=== PATIENT | male | born 1950 | race Caucasian/White ===

== ENCOUNTER 2020-11-09 15:30 | Emergency (ER) | payer OTHER ==
[~2020-11-09] VITALS: Ht 182.9 cm; Wt 70.3 kg
== END 2020-11-09 18:10 | disposition home or self-care (01) ==
LOC: ER 15:30
DX: S39.012A Strain of muscle, fascia and tendon of lower back, initial encounter (principal); F17.200 Nicotine dependence, unspecified, uncomplicated; V53.6XXA Passenger in pick-up truck or van injured in collision with car, pick-up truck or van in traffic accident, initial encounter; Y92.410 Unspecified street and highway as the place of occurrence of the external cause
CPT/HCPCS: 72100; 96372; 99283-25; J1885

== ENCOUNTER 2021-04-26 11:15 | Inpatient (IN) | payer OTHER, MEDICARE ==
[~2021-04-26] VITALS: Ht 182.9 cm; Wt 59.2 kg
[2021-04-26] MEDS ORDERED: MULVITA PO (12:48)
[2021-04-26] MEDS ORDERED: FERSU300 PO (12:48)
[2021-04-26] MEDS ORDERED: Aspir 8181 MG PO (12:48)
[2021-04-26 13:30] LABS: BASOPHILS ABSOLUTE AUTO 0.03 K/mm3 (0.00-0.23); BASOPHILS PERCENT AUTO 0 % (0-2); EOSINOPHILS ABSOLUTE AUTO 0.29 K/mm3 (0.00-0.68); EOSINOPHILS PERCENT AUTO 2 % (0-6); Hematocrit 35.6 % (37.0-53.0); Hemoglobin 11.7 g/dL (13.5-17.5); IMMATURE GRAN ABSOLUTE AUTO 0.05 K/mm3 (0.00-0.10); IMMATURE GRAN PERCENT AUTO 0 % (0-1); LYMPHOCYTES ABSOLUTE AUTO 1.07 K/mm3 (0.84-5.20); LYMPHOCYTES PERCENT AUTO 8 % (21-46); MONOCYTES ABSOLUTE AUTO 1.29 K/mm3 (0.16-1.47); MONOCYTES PERCENT AUTO 9 % (4-13); Mean Corpuscular HGB 31.1 pg (26.0-34.0); Mean Corpuscular HGB Conc 32.9 g/dL (31.5-36.5); Mean Corpuscular Volume 95 fL (80-100); NEUTROPHILS ABSOLUTE AUTO 11.01 K/mm3 (1.96-9.15); NEUTROPHILS PERCENT AUTO 80 % (41-73); Platelet Count 340 K/mm3 (150-400); RDW Coefficient Variation 13.2 % (11.7-14.2); RDW Standard Deviation 46.5 fL (35.1-46.3); Red Blood Cell Count 3.76 M/mm3 (4.30-5.90); White Blood Cell Count 13.74 K/mm3 (4.00-11.30)
[2021-04-26 13:31] LABS: Bun/Creatinine Ratio 30.9 (12.0-20.0); Calcium, Blood 8.6 mg/dL (8.5-10.1); Creatinine, Blood 2.59 mg/dL (0.60-1.20); Potassium, Blood 4.8 mmol/L (3.5-5.5)
[2021-04-26 16:18] LABS: CPK Creatine Kinase 82 U/L (39-308)
[2021-04-26 17:03] LABS: International Normalized Ratio 0.9; Prothrombin Time Results 9.8 Sec (9.7-11.5)
--- NOTE | 2021-04-26 19:35 | NUR ---
ADMIT NOTE RECEIVED REPORT FROM SHANNON BOWLING IN ED. PT TO ROOM AT APPROX 1725; SBA TO BED. PT AND SPOUSE ORIENTED TO ROOM AND CALL LIGHT. EDUCATED ON FALL RISK AND BED ALARM. PT REPORTS THAT HE DRINKS 12 TALL CANS OF BEER AND A SMALL PINT OF WHISKEY EVERY DAY; METH USE 2-3 DAYS AGO, DAILY MARIJUANNA USE AND CIGAR AND CHEWING TOBACCO USE. LAST DRINK 04/26/2021 AT APPROX 0900. PT A&Ox3; JENA; FORGETFUL. PT FIDGETING, STATES HE HAS RESTLESS LEG SYNDROME. PT REPORTS BACK IN BEING BEATEN AND HAVING BRAIN BLEED AND BUR HOLES INTO SCALP TO RELEIVE PRESSURE; LEFT MESSAGE FOR PROVIDER TO NOTIFIED PRIOR TO STARTING HEPARIN GTT. PT DENIES CHEST PAIN, SOB, NAUSEA AND DIZZINESS AT THIS TIME. PT REPORT LLE HAS BEEN PAINFUL FOR THE LAST COUPLE OF DAYS AND HAS BEEN TAKING ADDITIONAL MEDICATIONS AT HOME BUT WAS UNSURE NAME. PULSES FOR BLE FOUND VIA DOPPLER AND MARKED. SIGNIFICANT TENSION NOTED BETWEEN PATIENT AND SPOUSE, NOTED A DEGREE OF ESCALATION WHICH INTERFERED WITH ADMISSION PROCESS; SPOUSE EDUCATED ON VISITING HOURS AND RESTRCIONS. CIWA 4. ELEVATED BP NOTE; OTHER VSS. NO OTHER ACUTE CHANGES NOTED. REPORT GIVEN TO ONCOMING RN.
[2021-04-26 23:10] LABS: Source, Urine Clean Catch
[2021-04-26 23:13] LABS: Bilirubin, Urine Neg (Neg); Blood, Urine Neg (Neg); Glucose Qualitative, Urine Neg (Neg); Ketones, Urine Neg (Neg); Leukocyte Esterase, Urine Neg (Neg); Nitrite, Urine Neg (Neg); Protein, Urine Neg (Neg); Urobilinogen, Urine NORM (Normal); pH, Urine 6.5 (5.0-8.0)
[2021-04-26 23:14] LABS: Appearance, Urine Clear (Clear); Color, Urine Pale Yellow (P-Yellow)
--- NOTE | 2021-04-27 01:40 | NUR ---
ST ELEVATION THIS RN NOTICED ST ELEVATION ON TELE MONITOR WHICH WAS NOT REPORTED AT CHANGE OF SHIFT THE PT HAD JUST ARRIVED ON THE UNIT AT SHIFT CHANGE. THIS RN REPORTED THIS TO CHARGE BU[facility]Y [place] SO SHE [facility]ICH [facility]OWED SLIGHT ST ELEVATION OF 2018. CHARGE NURSE NOT CONCERNED AND PT DENIED ANY CP OR ANY OTHER S/S SO NO CALL TO PROVIDER WAS PLACED.
[2021-04-27 04:17] LABS: BASOPHILS ABSOLUTE AUTO 0.04 K/mm3 (0.00-0.23); BASOPHILS PERCENT AUTO 0 % (0-2); EOSINOPHILS ABSOLUTE AUTO 0.35 K/mm3 (0.00-0.68); EOSINOPHILS PERCENT AUTO 3 % (0-6); Hematocrit 36.4 % (37.0-53.0); Hemoglobin 12.2 g/dL (13.5-17.5); IMMATURE GRAN ABSOLUTE AUTO 0.04 K/mm3 (0.00-0.10); IMMATURE GRAN PERCENT AUTO 0 % (0-1); LYMPHOCYTES ABSOLUTE AUTO 1.21 K/mm3 (0.84-5.20); LYMPHOCYTES PERCENT AUTO 11 % (21-46); MONOCYTES ABSOLUTE AUTO 1.01 K/mm3 (0.16-1.47); MONOCYTES PERCENT AUTO 9 % (4-13); Mean Corpuscular HGB 30.7 pg (26.0-34.0); Mean Corpuscular HGB Conc 33.5 g/dL (31.5-36.5); Mean Corpuscular Volume 92 fL (80-100); Mean Platelet Volume 10.1 fL (9.1-12.4); NEUTROPHILS ABSOLUTE AUTO 8.48 K/mm3 (1.96-9.15); NEUTROPHILS PERCENT AUTO 76 % (41-73); Platelet Count 334 K/mm3 (150-400); RDW Standard Deviation 43.9 fL (35.1-46.3); Red Blood Cell Count 3.98 M/mm3 (4.30-5.90); White Blood Cell Count 11.13 K/mm3 (4.00-11.30)
[2021-04-27 04:41] LABS: Alanine Aminotransfer (ALT/SGP 18 U/L (12-78); Albumin/Globulin Ratio 0.8 (0.8-1.8); Alk Phos 101 U/L (50-136); Anion Gap 5 mmol/L (6-16); Aspartate Aminotrans (AST/SGOT 14 U/L (12-37); Bilirubin, Total 0.3 mg/dL (0.1-1.0); Blood Urea Nitrogen 49 mg/dL (8-24); Bun/Creatinine Ratio 46.2 (12.0-20.0); CO2, Blood 24 mmol/L (21-32); Calcium, Blood 8.6 mg/dL (8.5-10.1); Chloride, Blood 109 mmol/L (98-108); Creatinine, Blood 1.06 mg/dL (0.60-1.20); Globulin, Blood 3.9 g/dL (2.2-4.0); Glomerular Filtration Rate >60 (60-); Glucose, Blood 87 mg/dL (70-99); Potassium, Blood 4.8 mmol/L (3.5-5.5); Sodium, Blood 138 mmol/L (136-145); Total Protein, Blood 6.9 g/dL (6.4-8.2)
--- NOTE | 2021-04-27 06:41 | NUR ---
TENTER FRAME BACK TENDER SUMMARY PT IS AXO X4. PT BEGAN SHIFT W CIWA OF 7 DUE TO SEVERE ANXIETY AND MILD TREMOR. 50MG LIBRIUM GIVEN AND CIWA'S HAVE REMAINED 1-4 THE REST OF SHIFT. PT HAS PRODUCED OVER 2L OF CLEAR YELLOW URINE THIS SHIFT. PT HAS DENIED ANY CP OR PRESSURE THIS SHIFT. PT HAS MAINAINED O2 SATS >92% ON RM AIR. HEPARIN GTT RUNNING ALL SHIFT UNINTERUPTED. WILL REPORT TO ONCOMING RN.
--- NOTE | 2021-04-27 20:08 | NUR ---
JUSTIN SHIFT SUMMARY THIS AM PT A&Ox4; FORGETFUL AT TIMES, T/O SHIFT PT ORIENTED HAS DECREASED AT APPROX 1600 TO SELF; AGGITATION INCREASED T/O SHIFT, ESCALATING THIS EVENING; CIWA THIS AM 2 INCREASING T/O SHIFT TO 17; MEDICATED WITH LIBRIUM AND ATIVAN T/O SHIFT. PT IMPULSING AND CONSTANTLY SETTING OFF BED ALARM, EDUCATED PT ON SEVERAL OCCASIONS, NOTIFIED DR KNUTSON, NEW ORDERS FOR HUMBERTO VEST; PT CONTINUING TO MAKE IT OUT OF BED, ABLE TO UNDO RESTRAINTS, NOTIFIED DR KNUTSON, NEW ORDERS FOR BILATER WRIST RESTRAINTS. NEW ORDERS FOR RISPERODOL. PT PULSES TO BLE FOUND WITH DOPPLER, NOTIFIED DR MANUEL OF PROVIDER CONSULT, NO PLANS FOR PROCEDURE TODAY, OK TO FEED PATIENT, NEW ORDERS FOR DIET ENTERED. PA AT BEDSIDE THIS AFTERNOON. PT UP WALKING UNIT THIS AM, APPROX 100FT, DENIES PAIN TO BLE. ELEVATED BP NOTED THIS AM, TREDNING DOWN DURING SHIFT. OTHER VSS. NO OTHER ACUTE CHANGES NOTED. REPORT GIVEN TO ONCOMING RN.
--- NOTE | 2021-04-27 20:10 | NUR ---
PT ARRIVES TO ICU 14 VIA BED FROM PCU 8, TRANSFER TO ICU DUE TO ETOH WITHDRAWAL. ON ARRIVAL PT APPEARS TO BE RESTING QUIETLY WITH HUMBERTO VEST RESTRAINT AND BILAT WRIST RESTRAINTS IN PLACE HOWEVER WITH SLIDE TRANSFER TO BED, PT BEGINS TO SIT UP, THROW LEGS OVER SIDE RAILS, PULL AGAINST WRIST RESTRAINTS AND ROLL SIDE TO SIDE IN BED KICKING FEET CONSTANTLY. ATIVAN 4 MG IV ADMINISTERED AND PHARMACY IS CALLED FOR PRECEDEX INFUSION. PT IS UNABLE TO STATE NAME AND BIRTHDATE HOWEVER DOES ANSWER TO SPOKEN NAME, HE IS ORIENTED TO SELF ONLY AT THIS TIME. SATS ARE HIGH 90S, SENTENCES ARE MUMBLED AND DIFFICULT TO UNDERSTAND, NO VISIBLE INCREASED WORK OF BREATHING IS NOTED WHEN PT IS AT REST, OCCASIONAL DRY COUGH IS NOTED, LUNGS CLEAR WITH DIM BASES BILAT. HRR, SINUS ON MONITOR, PRESSURES ARE DIFFICULT TO OBTAIN RELATED TO INCREASED MOVEMENT. BILAT RADIAL PULSES ARE FULL, UNABLE TO LOCATE PEDAL PULSES TO PALP WITH PT KICKING FEET, WILL ATTEMPT DOPPLER WHEN PT IS MORE CALM. ACTIVE BOWEL TONES ARE NOTED, ABD SOFT, NO GRIMACING WITH LIGHT PALPATION. HEPARIN GTT AT 19 UNITS/KG/HR, NS AT TKO
--- NOTE | 2021-04-27 20:17 | NUR ---
care assumption/transfer UPON SHIFT CHANGE PT HAD BECOME INCREASINGLY AGITATED THRSHINSHING IN BED. AT THIS TIME THE PT WAS COMPLETELT DISORIENTED AND MUMBLING INCOHERENTLY. CIWA AT THIS TIME WAS 20 SO ATIVAN WAS GIVEN WITH NO RELIEF OF SYMPTOMS. AT THIS TIME CHARGE NURSE NOTIFIED ICU CHARGE NURSE AND THE PROVIDER SO THE PT COULD BE TRANSFERED TO ICU FOR ADVANCED TREATMENT AND MONITORING. PT ESCORTED FROM PCU 8 TO ICU 14 WITH NO EVENTS. PT TRANSFERED AND CARE ASSUMED BY SHANNAN Cook, REPORT GIVEN AT BEDSIDE.
--- NOTE | 2021-04-28 03:00 | NUR ---
ST CHANGES PT APPEARS TO HAVE ST SEGMENT CHANGES FROM BASELINE UP TO 2 MM ELEVATION IN LEAD II ON WEB PRESS OPERATOR APPRENTICE, DISCUSSED WITH DR ROSE AND EKG ORDERED. EKG DONE PER ORDERS. WILL CONT TO MONITOR.
[2021-04-28 03:39] LABS: Hematocrit 36.3 % (37.0-53.0); Hemoglobin 12.3 g/dL (13.5-17.5); Mean Corpuscular HGB 31.1 pg (26.0-34.0); Mean Corpuscular HGB Conc 33.9 g/dL (31.5-36.5); Mean Corpuscular Volume 92 fL (80-100); Mean Platelet Volume 10.2 fL (9.1-12.4); Platelet Count 321 K/mm3 (150-400); RDW Coefficient Variation 13.1 % (11.7-14.2); RDW Standard Deviation 43.9 fL (35.1-46.3); Red Blood Cell Count 3.95 M/mm3 (4.30-5.90); White Blood Cell Count 7.48 K/mm3 (4.00-11.30)
[2021-04-28 04:05] LABS: Alanine Aminotransfer (ALT/SGP 16 U/L (12-78); Albumin, Blood 2.7 g/dL (3.4-5.0); Albumin/Globulin Ratio 0.7 (0.8-1.8); Alk Phos 85 U/L (50-136); Anion Gap 4 mmol/L (6-16); Aspartate Aminotrans (AST/SGOT 10 U/L (12-37); Bilirubin, Total 0.2 mg/dL (0.1-1.0); Blood Urea Nitrogen 28 mg/dL (8-24); Bun/Creatinine Ratio 42.7 (12.0-20.0); CHOL/HDL RATIO 3.2; CO2, Blood 26 mmol/L (21-32); Calcium, Blood 8.6 mg/dL (8.5-10.1); Chloride, Blood 110 mmol/L (98-108); Cholesterol 153 mg/dL (50-200); Creatinine, Blood 0.66 mg/dL (0.60-1.20); Globulin, Blood 3.9 g/dL (2.2-4.0); Glomerular Filtration Rate >60 (60-); Glucose, Blood 138 mg/dL (70-99); HDL Cholesterol 48 mg/dL (>39); LDL/HDL RATIO 1.7; Low Density Lipoprotein Chol 82 mg/dL (0-110); Potassium, Blood 4.7 mmol/L (3.5-5.5); Sodium, Blood 140 mmol/L (136-145); Total Protein, Blood 6.6 g/dL (6.4-8.2); Triglycerides 117 mg/dL (30-160); Very Low Density Lipoprot Chol 23 mg/dL (6-32)
--- NOTE | 2021-04-28 05:45 | NUR ---
PT INITIALLY WITH MARKED AGITATION/RESTLESSNESS, IN CONSTANT MOTION, KICKING FEET, ROLLING FROM SIDE TO SIDE, SITTING UP, AND PULLING AGAINST WRIST RESTRAINTS. ATIVAN 4 MG IV ADMINISTERED X 3 AFTER ARRIVAL TO ICU, PRECEDEX GTT STARTED AT 0.7 MCG/KG/HR DUE TO PT MARKED AGITATION AND RESTLESSNESS, AFTER 1.5 HOURS, PT CONTINUED FREQUENTLY AGITATED AND RESTLESS, DISCUSSED WITH DR MONTANEZ AND ORDERS RECEIVED TO ALLOW FOR TITRATION UP TO 1.4 MCG/KG/HR, TITRATED UP TO 1 MCG/KG/HR AND PT WAS NOTED TO APPEAR TO RELAX, THIS AM, PT WAS NOTED TO BECOME BRADYCARDIC INTO THE MID 50S AND PRECEDEX WAS TITRATED DOWN, OF THIS TIME, PRECEDEX IS INFUSING AT 0.4 MCG/KG/HR AND PT IS RESTING QUIETLY. HE ROUSES TO HAVING HIS TEMPERATURE TAKEN/FOREHEAD OR SHOULDER TOUCHED, GOOD COUGH AND GAG REFLEX CONTINUE. HE CONTINUES TO BE CONFUSED OTHER THAN HIS NAME. ST CHANGES WERE NOTED WITH CARDIAC MONITORING AND EKG WAS DONE AND DISCUSSED WITH V BELT INSPECTOR DIMITRIOS ALMANZA, PT DORSALIS PULSES ARE FAINTLY PALPABLE BILAT, RADIAL ARE FULL, PRESSURES HAVE BEEN LABILE THIS SHIFT HOWEVER PT IS NOTED TO MOVE ARM FREQUENTLY WITH BLOOD PRESSURE ASSESSMENT. REQUESTED PROTONIX CHANGED TO IV FROM PO FOR CONCERN OF ASPIRATION RISK RELATED TO SEDATION/ETOH WITHDRAWAL. PT VOIDED 750 ML CLEAR YELLOW URINE THIS SHIFT TO CONDOM CATH.
--- NOTE | 2021-04-28 14:19 | NUR ---
PT'S SBP PER MONITOR IN 190'S, VERIFIED BY MANUAL BP MEASUREMENT; DR. HASA PROVIDED ORDERS FOR HYDRALAZINE 10-20MG; HYDRALAZINE 20MG ADMINISTERED PER MAR VIA IVP.
--- NOTE | 2021-04-28 17:57 | NUR ---
PT RECEIVED ON HEPARIN DRIP, PRECEDEX, AND KVO NS FLUIDS; HEPARIN TITRATED PER APTT RESULT DIRECTED BY PHARMACY VIA MAR; PRECEDEX TITRATED PER PT'S AGITATION LEVEL; PROVIDER NOTIFIED ABOUT SBP IN 170-190'S, ORDERS PROVIDED FOR HYDRALAZINE IVP; SBP DECREASED TO 130'S-140'S POST ADMINISTRATION; PT STILL IN BILATERAL SOFT UPPER WRIST RESTRAINTS AND HUMBERTO VEST; PT TERRY, ON RA; CONDOM CATHETER REPLACED AND BRIAN CARE GIVEN; PT HAD INTERMITTENT RASPY UNPRODUCTIVE COUGH; CIWA SCORE CONSISTENTLY 7; PT'S ALE VISITED AT BEDSIDE AND REPORTED NO UNANSWERED QUESTIONS; PT REPORTS NO ADDITIONAL CONCERNS AT THIS TIME
--- NOTE | 2021-04-28 19:30 | NUR ---
ASSUMPTION OF CARE RECEIVED REPORT FROM IWONA ORTEGA, ASSUMED CARE OF PATIENT. PATIENT AWAKE, CONFUSED, VERBALIZING "I GOT TO GET OUT" AND SHOUTING FOR HIS . REORIENTATION PROVIDED TO PATIENT, PATIENT JUST KEEPS REPEATING THE SAME PHRASES "GOT TO GET OUT OF HERE". PATIENT STATED HIS NAME BUT SAID HE DIDN'T KNOW THE TIME OR DATE. CONTINUES TO PULL AT RESTRAINTS EVEN THOUGH HE IS TOLD WHERE HE IS AND WHY HE IS HERE HE KEEPS SAYING HES STUCK IN A HOUSE AND NEEDS TO GET OUT. SIPS OF WATER PROVIDED, TOLERATED PO INTAKE WELL. HEPARIN AND PRECEDEX INFUSING. VITALS STABLE. WILL REVIEW ORDERS AND TREAT PRESCRIBED.
[2021-04-29 02:11] LABS: BASOPHILS ABSOLUTE AUTO 0.03 K/mm3 (0.00-0.23); BASOPHILS PERCENT AUTO 0 % (0-2); EOSINOPHILS ABSOLUTE AUTO 0.29 K/mm3 (0.00-0.68); EOSINOPHILS PERCENT AUTO 2 % (0-6); Hematocrit 40.5 % (37.0-53.0); Hemoglobin 13.5 g/dL (13.5-17.5); IMMATURE GRAN ABSOLUTE AUTO 0.04 K/mm3 (0.00-0.10); IMMATURE GRAN PERCENT AUTO 0 % (0-1); LYMPHOCYTES ABSOLUTE AUTO 1.37 K/mm3 (0.84-5.20); LYMPHOCYTES PERCENT AUTO 11 % (21-46); MONOCYTES ABSOLUTE AUTO 2.35 K/mm3 (0.16-1.47); MONOCYTES PERCENT AUTO 18 % (4-13); Mean Corpuscular HGB 31.3 pg (26.0-34.0); Mean Corpuscular HGB Conc 33.3 g/dL (31.5-36.5); Mean Corpuscular Volume 94 fL (80-100); Mean Platelet Volume 9.6 fL (9.1-12.4); NEUTROPHILS ABSOLUTE AUTO 9.01 K/mm3 (1.96-9.15); NEUTROPHILS PERCENT AUTO 69 % (41-73); Platelet Count 363 K/mm3 (150-400); RDW Coefficient Variation 13.4 % (11.7-14.2); RDW Standard Deviation 45.7 fL (35.1-46.3); Red Blood Cell Count 4.32 M/mm3 (4.30-5.90); White Blood Cell Count 13.09 K/mm3 (4.00-11.30)
[2021-04-29 02:30] LABS: Alanine Aminotransfer (ALT/SGP 16 U/L (12-78); Albumin, Blood 3.1 g/dL (3.4-5.0); Albumin/Globulin Ratio 0.7 (0.8-1.8); Alk Phos 97 U/L (50-136); Anion Gap 6 mmol/L (6-16); Aspartate Aminotrans (AST/SGOT 12 U/L (12-37); Bilirubin, Total 0.2 mg/dL (0.1-1.0); Blood Urea Nitrogen 15 mg/dL (8-24); Bun/Creatinine Ratio 26.8 (12.0-20.0); CO2, Blood 25 mmol/L (21-32); Calcium, Blood 9.3 mg/dL (8.5-10.1); Chloride, Blood 109 mmol/L (98-108); Creatinine, Blood 0.56 mg/dL (0.60-1.20); Globulin, Blood 4.2 g/dL (2.2-4.0); Glomerular Filtration Rate >60 (60-); Glucose, Blood 95 mg/dL (70-99); Potassium, Blood 4.2 mmol/L (3.5-5.5); Sodium, Blood 140 mmol/L (136-145); Total Protein, Blood 7.3 g/dL (6.4-8.2)
--- NOTE | 2021-04-29 06:15 | NUR ---
SHIFT SUMMARY UPON START OF SHIFT PATIENT AWAKE, PULLING AGAINST WRIST RESTRAINTS AND SITTING UP PULLING AGAINST HUMBERTO. YELLING, CALLING OUT, DISORIENTED. PRECEDEX STARTED AT 0.5MCG/KG, BEGAN TITRATING UP PER PATIENT'S RESPONSE AND CIWA SCORE. ATIVAN GIVEN CHARTED. PATIENT WAS GIVEN TWO SNACKS AND SIPS OF ICE WATER, TOLERATED PO INTAKE VERY WELL. INCONTINENT OF URINE TWICE, SOAKING BOTH ATTENDS AND BED. REPOSITIONED CHARTED FOR COMFORT AND SKIN PROTECTION. WILL CONTINUE TO MONITOR AND REPORT TO ONCOMING RN.
--- NOTE | 2021-04-29 08:00 | NUR ---
PT RESTING QUIETLY WITH PRECEDEX @ 0.8 MCG/KG/MIN. OPENS EYES TO VOICE AND ANSWERS A FEW QUESTIONS APPROPRIATELY, BUT TYPICALLY, MUMBLE INCOHERENTLY AND IS NOT ABLE TO FOLLOW COMMANDS. CIWA 12. TERRY, BUT GENERALLY WEAK. ECG SHOWS SB TO SR. BP STABLE. DP/PT PULSES 1-2+ PALPABLE. HEPARIN DRIP CONTINUES @ 23 UNITS/KG/HR. LUNGS COARSE. INTERMITTENT HARSH, NONPRODUCTIVE COUGH. ORAL MUCOSA DRY. ORAL CARE DONE. PT MAINTAINS SATS>90% ON RA. NO NOTED RESPIRATORY DISTRESS. PT APPEARS EMACIATED. WILL ENCOURAGE PO FOOD AND FLUIDS IF PT ABLE TO REMAIN AWAKE AND FOLLOW COMMANDS. PT INCONTINENT OF URINE-#16 FR SCHULTZ WITH TEMP PROBE INSERTED PER DR. KNUTSON ORDER-U/A SENT PER SCHULTZ INSERTION PROTOCOL.
[2021-04-29 08:03] LABS: Source, Urine Catheter
[2021-04-29 08:17] LABS: Appearance, Urine Clear (Clear); Bilirubin, Urine Neg (Neg); Blood, Urine Neg (Neg); Color, Urine Yellow (P-Yellow); Glucose Qualitative, Urine Neg (Neg); Ketones, Urine Neg (Neg); Leukocyte Esterase, Urine Neg (Neg); Nitrite, Urine Neg (Neg); Protein, Urine Neg (Neg); Specific Gravity, Urine 1.015 (1.003-1.022); Urobilinogen, Urine NORM (Normal)
--- NOTE | 2021-04-29 09:00 | NUR ---
CIWA 8-PRECEDEX TITRATED DOWN TO 0.4 MCG/KG/MIN. PT AWAKE AND ABLE TO FOLLOW COMMANDS. KONRAD SANCHEZ AT BEDSIDE ATTEMPTING TO GET PT TO EAT BREAKFAST. PT STATES-"I AM NOT HUNGRY."
--- NOTE | 2021-04-29 12:00 | NUR ---
CIWA 4 WITH PRECEDEX @0.3 MCG/KG/MIN. PT AWAKENED TO VOICE AND ASKED "HOW DID I GET IN HERE." PT REMINDED OF THE EVENTS THAT LEAD TO HIS HOSPITALIZATION. HE IS FORGETFUL, BUT IS HAVING MORE NORMAL CONVERSATION. PT FOLLOWING COMMANDS AND COOPERATIVE WITH CARE. PT DENIES PAIN AT THIS TIME. VS WDL. NOT NOTED DISTRESS.
--- NOTE | 2021-04-29 14:05 | NUR ---
CIWA 19. PT MOVING HIS LEGS IN BED AND STATES "I CAN'T KEEP THEM STILL!" MED WITH ATIVAN 2 MG IVP X 1 WITH MINIMAL EFFECT-TITRATED PRECEDEX TO 0.8 MCG/KG/MIN. POSITIONED TO COMFORT ON RIGHT SIDE. PT STATES "I HAVE TO GET OFF OF MY ASS!" PT COCCYX SLIGHTLY RED. MEPILEX PLACED PREVENTATIVE MEASURE.
--- NOTE | 2021-04-29 15:15 | NUR ---
PT SPOUSE IN FOR VISIT. PT BECAME VERY AGITATED, STARTED PULLING ON RESTRAINTS AND ATTEMPTING TO GET OOB. PT APPEARS VERY ANXIOUS WELL. PT REPORTS "SEVERE" LEG PAIN-MED WITH FENTANYL 50 MCG IVP X 1 SEE EMAR. PRECEDEX DRIP TITRATED UP TO 0.8 MCG/KG/MIN. SPOKE WITH ALE (SPOUSE) AT LENGTH ABOUT PT HISTORY-PARTICULARLY ABOUT HIS POLYSUBSTANCE ABUSE AND SMOKING. PT HAD BEEN DRINKING VERY HEAVILY FOR ABOUT 2 WEEKS DUE TO THE LOSS OF HIS DOG. PT REPORTS THAT PT HAS BEEN FALLING AT HOME FREQUENTLY.PT HAS HAD MANY DUI'S & HAS BEEN ENCARCERATED. PT WENT THRU [facility] LAST YEAR, BUT SOON THE PROGRAM WAS OVER, PT STARTED DRINKING AGAIN. [facility] REFERRAL PLACED PT SPOUSE VOICES CONCERN THAT PT WILL BE DISCHARGED TO HOME AND THEN RESUME DRINKING.
--- NOTE | 2021-04-29 16:00 | NUR ---
CIWA 5 WITH PRECEDEX@ 0.8 MCG/KG/MIN-PT RESTING QUIETLY WHEN NOT DISTURBED.VS WDL.
--- NOTE | 2021-04-29 18:49 | NUR ---
CIWA CONTINUES @ 5-PRECEDEX @ 0.8MCG/KG/MIN. PT SLEEPS WHEN NOT DISTURBED, BUT EASILY AROUSED. COOPERATIVE WITH CARE AND ABLE TO FOLLOW COMMANDS. NO NOTED DISTRESS AT THIS TIME-WILL REPORT TO ONCOMING SHIFT.
--- NOTE | 2021-04-29 19:15 | NUR ---
BEDSIDE REPORT WITH SHANNON YUN. PT VERY SLEEPY, DIFFICULT TO AROUSE, COURT TURNS HIS PRECEDEX DOWN TO 0.6MCG/KG/HR. PT WITH PALPABLE PULSES PEDAL X 2, CACHETIC AND WARN APPEARING IN APPEARANCE. BREATHING EASY AND WITHOUT TREMORS. WRISTS RESTRAINED FOR IMPULSIVITY, IV'S TO EACH ARM, PATENT, WNL. LUNGS DIMINISHED, NO COUGH AT THIS TIME. BELLY SOFT, NON-TENDER TO TOUCH. SCHULTZ TO GRAVITY DRAINAGE.
--- NOTE | 2021-04-29 20:15 | NUR ---
PT AWAKENED WITH A START, RESTLESS AND UNSETTLED. HE STATES HE NEEDS HIS WRISTS FREE AND HE NEEDS OUT OF HERE. 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 TRIED TO TALK WITH HIM, ORIENT HIM, UNABLE TO DO SO. HE BELIEVES HE IS AT THE DR.OFFICE, HE CANNOT ADD SERIALLY, HE KEEPS REPEATING 9,9,9,9, INSTEAD OF ADDING. HE IS UNSURE OF DATE AND TIME. HE SAYS, JUST KNOCK ME OUT. PT MEDICATED PER DEC.
--- NOTE | 2021-04-30 00:30 | NUR ---
PT AWAKENS, PLEASANT AND COOPERATIVE, CHATTY. HUNGRY. PT TOOK IN YOGURT, PEARS, AND CHOCOLATE PUDDING. HE TOLERATED WELL AND THEN DRANK SOME JUICE. DISCUSSION TO WHY HE IS THERE AND WHAT HE IS GOING THROUGH. NO COMPLAINTS.
[2021-04-30 00:37] LABS: Hemoglobin 11.9 g/dL (13.5-17.5); Mean Corpuscular HGB 31.4 pg (26.0-34.0); Mean Corpuscular Volume 92 fL (80-100); Mean Platelet Volume 9.8 fL (9.1-12.4); Platelet Count 323 K/mm3 (150-400); RDW Coefficient Variation 13.4 % (11.7-14.2); RDW Standard Deviation 45.8 fL (35.1-46.3); Red Blood Cell Count 3.79 M/mm3 (4.30-5.90); White Blood Cell Count 11.38 K/mm3 (4.00-11.30)
[2021-04-30 00:54] LABS: Anion Gap 8 mmol/L (6-16); Blood Urea Nitrogen 14 mg/dL (8-24); Bun/Creatinine Ratio 23.3 (12.0-20.0); CO2, Blood 23 mmol/L (21-32); Calcium, Blood 8.9 mg/dL (8.5-10.1); Chloride, Blood 107 mmol/L (98-108); Glomerular Filtration Rate >60 (60-); Glucose, Blood 163 mg/dL (70-99); Potassium, Blood 4.1 mmol/L (3.5-5.5); Sodium, Blood 138 mmol/L (136-145)
--- NOTE | 2021-04-30 02:20 | NUR ---
PT BECAME RESTLESS, WAS CHECKING ON HIM AND HE WAS COMPLAINING ABOUT THE WRIST RESTRAINTS, HE FELT THAT HE WAS IN A CARE HOME, OR A PRISONER OF WAR. ATTEMPTS TO REORIENT WERE MADE, FINALLY GAVE MEDICATION PER EMAR.
--- NOTE | 2021-04-30 04:58 | NUR ---
PT AWAKENS VERY AGITATED, CIWA 13, FRUSTRATED, UPSET ABOUT THE RESTRAINTS, WON'T REORIENT WELL. MEDICATED X2 WITH ATIVAN 2MG PER EMAR, INCREASED PRECEDEX TO 0.8 MCG/KG/HR. TRIED TO CALM AND REASSURE. FINALLY SETTLES DOWN.
--- NOTE | 2021-04-30 07:05 | NUR ---
JOCY WAS AWAKENED AND STARTLED AND AGITATED. WENT TO MEDICATE HIM AND FOUND THE LEFT FOREARM IV WAS RED, SWOLLEN AND TENDER. PT. YELPED WHEN THE SITE WAS TOUCHED. A NEW IV WAS OBTAINED IN THE RIGHT WRIST, THE LEFT FOREARM WAS BANDAGED AND A WARM BLANKET WAS APPLIED. PT THEN WAS GIVEN HIS ATIVAN AND FELL FAST ASLEEP.
--- NOTE | 2021-04-30 10:31 | NUR ---
ASSUMED CARE OF THIS PT. HE IS RESTING IN BED WITH EYES CLOSED AND IS VISIBLE FROM THE NURSES STATION.
--- NOTE | 2021-04-30 15:18 | NUR ---
Pharmacy called to report that based on the pt's Ptt there will be no changes to the heparin drip at this time.
--- NOTE | 2021-04-30 17:56 | NUR ---
Shift Summary Pt has been a/ox 2 since assumption of care. He has had moments of increased anxiety and agiatation but they have been managed with anxiolytics and redirection. His CIWA score remains between 8-9. His atwood is patent. A third IV was started on his left hand. Pt needs assist with meals. Heparin and precedex continue to infuse as ordered. He continues to have a dry cough. Pt Leticia was updated and reported that she is exhausted and will be staying home today. The pt can verbalize his needs at times and he is visible from the nurses station.
--- NOTE | 2021-04-30 22:32 | NUR ---
ASSUMED CARE AT 1900 PT LAYING IN BED AGITATED ABOUT RESTRAINTS; HE IS ALERT/ORIENTED X3, DOES NOT KNOW DATE/TIME BUT DOES KNOW SELF/LOCATION/SITUATION/ AND FOLLOWS DIRECTIONS MINIMALLY; PT IRRITATED EASILY AND REPETATIVE WITH ASKING QUESTIONS AND THREATENING TO "TEAR THIS PLACE APART" IF THE RESTRAINTS ARE NOT REMOVED; PRECEDEX TITRATED UP TO 1.3MCG/KG/HR; PRN ATIVAN AVAILABLE, GIVEN, AND HELPFUL; CIWA'S 14-15. AFEBRILE. SPO2 >95% ON RA. HR 50-60'S. SBP 140-150. HEPARIN INFUSING AT 26UNITS/KG/HR. SCHULTZ IN PLACE AND DRAINING TO GRAVITY. SEE SHIFT ASSESSMENT FOR FULL ASSESSMENT.
--- NOTE | 2021-04-30 23:34 | NUR ---
FAMILY CALLED PT CALLED AT 2300 VERY UPSET AND CONFUSED ABOUT WHY THE PT IS BEING TREATED FOR ALCOHOL WITHDRAWL AND NOT THE CLOT IN HIS LEG. THE STATED THAT THE PT IS GOING TO GO RIGHT BACK TO DRINKING ONCE HE IS RELEASED FROM THE HOSPITAL AND DOESN'T UNDERSTAND WHY HE HAS TO GO THROUGH THIS. RN TRIED TO EXPLAIN THAT SITUATION TO HER BUT THE THEN WOULD START TALKING ABOUT SOMETHING ELSE ON THE PHONE REGARDING PT. THE CONVERSATION ENDED WITH THE BEING MORE CALM AND STATED SHE WILL CALL BACK TOMORROW WHEN THE PROVIDERS ARE IN THE FACILITY. THE STATED THAT SHE HAS NOT HEARD FROM A PHYSICIAN SINCE HIS ADMISSION TO THE HOSPITAL AND IS VERY DISAPOINTED IN THIS.
--- NOTE | 2021-05-01 06:16 | NUR ---
END OF SHIFT SUMMARY PT VERY AGITATED T/O SHIFT; PRN ATIVAN GIVEN MULTIPLE TIMES DUE TO PT YELLING, CURSING, PULLING AT RESTRAINTS, AND NOT BEING DIRECTABLE OR COOPERATIVE; PT IS ALERT/ORIENTED X2 AND KNOWS SELF AND TOWN BUT NOT ALWAYS LOCATION AND SITUATION; CIWA 9-15; PRECEDEX INCREASED TO 1.1MCG/KG/HR. AFEBRILE. SPO2 >95% ON RA; WET COUGH NOTED. HR 50-60'S. SBP 120-170; HYDROLAZINE GIVEN ONCE AND HELPFUL BRINGING SBP FROM 170+ TO 120'S; HEPARIN INFUSING AT 26UNITS/KG/HR. SCHULTZ PATENT AND DRAINING TO GRAVITY. WILL REPORT TO AM RN WHEN AVAILABLE.
--- NOTE | 2021-05-01 07:48 | NUR ---
ASSUMED CARE AT 0700. SLEEPING COMFORTABLY, PRECEDEX INFUSING AT 1.1, VSS, MOVES WHEN HEARING VOICES IN ROOM REMAINS IN 4 PT RESTRAINTS DUE TO ETOH WITHDRAWL AND AGITATION. WILL CONTINUE TO TREAT AND MONITOR.
[2021-05-01 08:08] LABS: BASOPHILS ABSOLUTE AUTO 0.04 K/mm3 (0.00-0.23); BASOPHILS PERCENT AUTO 0 % (0-2); EOSINOPHILS PERCENT AUTO 3 % (0-6); Hematocrit 38.5 % (37.0-53.0); Hemoglobin 12.9 g/dL (13.5-17.5); IMMATURE GRAN ABSOLUTE AUTO 0.04 K/mm3 (0.00-0.10); IMMATURE GRAN PERCENT AUTO 0 % (0-1); LYMPHOCYTES ABSOLUTE AUTO 1.21 K/mm3 (0.84-5.20); LYMPHOCYTES PERCENT AUTO 10 % (21-46); MONOCYTES PERCENT AUTO 12 % (4-13); Mean Corpuscular HGB 31.1 pg (26.0-34.0); Mean Corpuscular HGB Conc 33.5 g/dL (31.5-36.5); Mean Corpuscular Volume 93 fL (80-100); Mean Platelet Volume 9.9 fL (9.1-12.4); NEUTROPHILS ABSOLUTE AUTO 8.91 K/mm3 (1.96-9.15); NEUTROPHILS PERCENT AUTO 74 % (41-73); Platelet Count 337 K/mm3 (150-400); RDW Coefficient Variation 13.2 % (11.7-14.2); RDW Standard Deviation 45.1 fL (35.1-46.3); Red Blood Cell Count 4.15 M/mm3 (4.30-5.90)
[2021-05-01 08:30] LABS: Alanine Aminotransfer (ALT/SGP 19 U/L (12-78); Albumin, Blood 2.9 g/dL (3.4-5.0); Albumin/Globulin Ratio 0.7 (0.8-1.8); Alk Phos 92 U/L (50-136); Anion Gap 4 mmol/L (6-16); Aspartate Aminotrans (AST/SGOT 13 U/L (12-37); Bilirubin, Total 0.2 mg/dL (0.1-1.0); Blood Urea Nitrogen 11 mg/dL (8-24); Bun/Creatinine Ratio 17.4 (12.0-20.0); CO2, Blood 29 mmol/L (21-32); Calcium, Blood 9.5 mg/dL (8.5-10.1); Chloride, Blood 108 mmol/L (98-108); Creatinine, Blood 0.63 mg/dL (0.60-1.20); Globulin, Blood 4.1 g/dL (2.2-4.0); Glomerular Filtration Rate >60 (60-); Glucose, Blood 109 mg/dL (70-99); Potassium, Blood 4.1 mmol/L (3.5-5.5); Sodium, Blood 141 mmol/L (136-145)
--- NOTE | 2021-05-01 09:42 | NUR ---
CIWA CURRENTLY 5, SLEEPING PEACEFULLY. 4 POINT RESTRAINTS REMAIN IN PLACE, PRECEDEX INFUSING AT 1.1 PER EMAR.
--- NOTE | 2021-05-01 11:40 | NUR ---
AWAKE AND FOLLOWING INSTRUCTIONS, ASSISTED TO BEDSIDE COMMODE. NARCAN DECREASED TO 0.4MG/HR, WILL CONTINUE TO MONITOR.
--- NOTE | 2021-05-01 13:20 | NUR ---
RESTING COMFORTABLY, PRECEDEX INFUSING AT 1.2, VSS, WILL CONTINUE TO MONITOR.
--- NOTE | 2021-05-01 15:07 | NUR ---
SPOUSE ARRIVES AND IS AT BEDSIDE. DR. RODRÍGUEZ TO ROOM. LENGTHY DISCUSSION WITH DR. RODRÍGUEZ REGARDING PLAN OF CARE. SPOUSE CONCERNED THAT PT WILL BE VERY UPSET THAT HE WAS IN THE HOSPITAL AND WENT THROUGH ETOH WITHDRAWL. STATES "I WILL BE THE ONE WHO CATCHES HELL". REPORTS THAT PT IS ANGRY MOST OF THE TIME AND CONTINUALLY FIGHTS WITH HER REGARDING HIS ALCOHOL USAGE. STATES IF WE WOULD HAVE FIXED HIS LEG DAYS AGO HE WOULDN'T BE GOING THROUGH WITHDRAWLS. DR. RODRÍGUEZ DISCUSSED REASONS PER DR. MANUEL THAT SURGERY WAS NOT DURING THIS HOSPITAL STAY. STATES SHE UNDERSTANDS. AGREES AND UNDERSTANDS FOR THE NECESSAITY OF RESTRAINTS AND MEDICATIONS FOR WITHDRAWL. SHE REPORTS MINIMAL SUPPORT SYSTEMS. RECOMMENED [facility] FOR HER, SHE STATES "ITS A JOKE". JUNIOR PHP DEVELOPER TO ROOM TO DISCUSS FUTURE DISCHARGE PLANNING.
--- NOTE | 2021-05-01 16:39 | NUR ---
HEPARIN DC'D PER ORDERS. SLEEPING, WILL CONTINUE TO MONITOR.
--- NOTE | 2021-05-01 18:39 | NUR ---
SHIFT SUMMARY; REMAINED IN 4PT SOFT RESTRAINTS DURING SHIFT WITH SMALL BREAKS FOR ASSISTANCE WITH MEALS. INTERMITANT AGITATION AND PULLING AGAINST RESTRAINTS. PRECEDEX CONTINUES AT 1.1, PRN ATIVAN NEEDED. CIWAS THROUGHOUT SHIFT. SCHULTZ CATH IN PLACE DRAINING CLEAR YELLOW URINE. REPOSITIONED THROUGHOUT SHIFT NEEDED. REPOSTIONS SELF IN BED. LEFT EXTREMETY PEDAL PULSE FAINT PULSE WITH CAP REFILL >3. FOOT WARM TO TOUCH. HEPARIN DC'D TODAY AND BRIDGED TO XARALTO. NO ACUTE MEDICAL CHANGES, WILL CONTINUE TO MONITOR AND TREAT UNTIL CHANGE OF SHIFT.
--- NOTE | 2021-05-01 19:25 | NUR ---
ASSUMED CARE OF PATIENT AT APPROXIMATELY 1900 FROM YARELY Hamilton RN. PATIENT ALERT AND ORIENTED TO SELF AT TIMES; STATES DATE IS IN DECEMBER; ABLE TO STATE LOCATION AT TIMES BUT STATES HE WANTS TO GET UP AND LEAVE; CALLS OUT; CONFUSED; HALLUCINATING AT TIMES. PATIENT HAS SOFT RESTRAINTS ON WRISTS AND ANKLES; PULLING AT THEM; PATIENT HAS TEMP SCHULTZ. PRECEDEX AT 1.1. CIWA 13; WILL MEDICATE PER EMAR; NSR ON HEART MONITOR; OXYGEN SATURATION ABOVE 90% ON ROOM AIR. 2 OTHER PIV IN HANDS S/L.
--- NOTE | 2021-05-01 20:30 | NUR ---
PATIENT'S PRECEDEX TITRATED UP TO 1.4 PER ORDER; CHARGE NURSE ARUNA NOTIFIED. CIWA 16 AND PATIENT BECOMING MORE IRRITABLE; ATTEMPTED TO PULL SCHULTZ OUT; PULLING ON RESTRAINTS; KICKING LETS UP AND DOWN.
[2021-05-01] MEDS ORDERED: GABA300 PO (22:02)
[2021-05-01] MEDS ORDERED: LIDO700A20 TOP (22:03)
[2021-05-01] MEDS ORDERED: LISI10 PO (22:03)
[2021-05-01] MEDS ORDERED: TIZA4 PO (22:16)
[2021-05-01] MEDS ORDERED: ROPI1 PO (22:16)
[2021-05-01] MEDS ORDERED: OYSTER SHELL 51 EACH PO (22:18)
[2021-05-01] MEDS ORDERED: FISH OIL 1,2001 EAC1 PO (22:20)
[2021-05-01] MEDS ORDERED: DICLOFENAC NA TOP (22:20)
--- NOTE | 2021-05-01 23:04 | NUR ---
CALL PLACED TO DR. ROSE REGARDING CIWA SCORE INCREASING AND PATIENT AGITATION AFTER GETTING 4MG IV ATIVAN AND MAXED OUT ON PRECEDEX. PATIENT YELLING OUT THREATNING STAFF, PULLING ON RESTRAINTS AND NOT COOPERATING. PATIENT WANTS KNIFE TO CUT OFF RESTRAINTS.
--- NOTE | 2021-05-01 23:33 | NUR ---
ADDITIONAL ONE TIME DOSE OF ATIVAN DID NOT HELP; PATIENT CONTINUES TO PULL AT RESTRAINTS; CALL OUT; CONFUSED
--- NOTE | 2021-05-01 23:45 | NUR ---
PATIENT'S ALE CALLED FOR UPDATE; WILL NOT BE ABLE TO COME IN TOMORROW DUE TO FAMILY VISITING FROM OUT OF STATE BUT WILL CALL TOMORROW FOR UPDATE.
--- NOTE | 2021-05-02 | NUR ---
PATIENT NO LONGER IRRITABLE, PULLING AT RESTRAINTS, ATTEMTPTING TO GET OUT OF BED; WILL TITTRATE DOWN PRECEDEX
--- NOTE | 2021-05-02 03:20 | NUR ---
PATIENT VERY IRRITABLE; ANXIOUS; CONFUSED; CALLING OUT FOR LIZZ; REPORTING HE IS GOING TO CLIMB OUT OF BED; CIWA 16; WILL MEDICATE PER EMAR
--- NOTE | 2021-05-02 06:38 | NUR ---
PATIENT SLEPT ABOUT SEVEN HOURS TOTAL LAST NIGHT; IRRITABLE MOST OF SHIFT; MEDICATED WITH ATIVAN IV AND TITRATED PRECEDEX THROUGHOUT THE NIGHT. HYPERTENSIVE; MEDICATED PER EMAR. NO OTHER ACUTE CHANGES TO REPORT.
--- NOTE | 2021-05-02 09:26 | NUR ---
ASSUMED CARE REPORT RECEIVED FROM SHANNON CASTILLO. PT WOKE UP AND WAS AGITATED, REPEATEDLY ASKING TO NOT BE TIED DOWN AND SAYING HE HATES BEING TIED DOWN. MOST OF PT'S AGITATION SEEMED TO BE COMING FROM THE RESTRAINTS SO TRIALLED PT OUT OF THEM AND PT IS COOPERATING SO FAR. LOTS OF EDUCATION AND INSTRUCTION GIVEN TO PT ON BEHAVIOR REQUIREMENTS TO STAY OUT OF RESTRAINTS. PT SAYS HE UNDERSTANDS, BUT HAS MINIMAL RETENTION IN LATER CONVERSATIONS. PT IS ABLE TO SAY HE IS IN ICU IN [place], BUT CAN'T REMEMBER THAT HE IS IN A HOSPITAL. HE IS STILL SAYING HE WANTS TO GO HOME AND IS IMPULSIVE SO VEST RESTRAINT APPLIED TO REMIND HIM TO STAY IN BED AND PT IS TOLERATING THAT WITHOUT FURTHER AGITATION AT THIS POINT.CONTINUE TO MONITOR PT CLOSELY. PT ON CAMERA MONITORS BED ALARM IS NOT WORKING PROPERLY.
--- NOTE | 2021-05-02 13:11 | NUR ---
REASSESSMENT PT HAS CONTINUED TO BE MOSTLY COOPERATIVE THROUGHOUT THE MORNING SO HE HAS JUST BEEN IN A VEST RESTRAINT. HE STILL GETS CONFUSED OR FORGETS WHY HE IS IN THE HOSPITAL AND WANTS TO GO HOME, BUT CAN USUALLY BE REDIRECTED. PRECEDEX IS BEING TITRATED DOWN SLOWLY. LUNGS ARE COARSE. PT HAS A STRONG COUGH. SR, BP STABLE. EATING MEALS WITH ASSISTANCE. SCHULTZ DRAINING CL YELLOW URINE. PT GOT UP TO A CHAIR. CONTINUING TO MONITOR.
--- NOTE | 2021-05-02 17:03 | NUR ---
SHIFT SUMMARY PT'S MENTATION HAS IMPROVED THROUGHOUT THE DAY TO THE POINT THAT PRECEDEX WAS TURNED OFF AROUND 1400. HE IS STILL CONFUSED AT TIMES, BUT HE HAS BEEN REDIRECTABLE AND FOLLOWING DIRECTIONS. HE STILL WANTS TO GO HOME, BUT HAS BEEN COOPERATIVE WHEN IT IS EXPLAINED WHY HE NEEDS TO STAY. CIWAA IS ONLY 6 THIS AFTERNOON AND HE HAS NOT REQUIRED ANY PRN SEDATIVES. PRN HYDRALAZINE GIVEN FOR BP ONCE. SR MOST OF THE AFTERNOON, BUT TACHY THIS AFTERNOON UP TO 120. LUNGS ARE COARSE, VERY MOIST COUGH THAT SOUNDS LIKE HE IS COUGHING STUFF UP BUT HE JUST SWALLOWS THE SPUTUM. BM TODAY. SCHULTZ WITH CL YELLOW URINE. CONTINUING TO MONITOR.
--- NOTE | 2021-05-02 18:31 | NUR ---
PRECEDEX RESTARTED PT STARTED TO GET MORE WORKED UP. STATES HE IS VERY ANXIOUS, FIDGETING AROUND IN BED. HR UP TO 140S AND SBP UP TO 170S. TWO SEPARATE DOSES OF ATIVAN GIVEN WITHOUT IMPROVEMENT SO PRECEDEX RESTARTED. CONTINUING TO MONITOR.
[2021-05-03 03:34] LABS: BASOPHILS ABSOLUTE AUTO 0.02 K/mm3 (0.00-0.23); BASOPHILS PERCENT AUTO 0 % (0-2); EOSINOPHILS ABSOLUTE AUTO 0.27 K/mm3 (0.00-0.68); EOSINOPHILS PERCENT AUTO 2 % (0-6); Hematocrit 36.7 % (37.0-53.0); Hemoglobin 12.3 g/dL (13.5-17.5); IMMATURE GRAN ABSOLUTE AUTO 0.03 K/mm3 (0.00-0.10); IMMATURE GRAN PERCENT AUTO 0 % (0-1); LYMPHOCYTES PERCENT AUTO 10 % (21-46); MONOCYTES ABSOLUTE AUTO 1.24 K/mm3 (0.16-1.47); MONOCYTES PERCENT AUTO 10 % (4-13); Mean Corpuscular HGB 30.9 pg (26.0-34.0); Mean Corpuscular HGB Conc 33.5 g/dL (31.5-36.5); Mean Corpuscular Volume 92 fL (80-100); Mean Platelet Volume 9.9 fL (9.1-12.4); NEUTROPHILS ABSOLUTE AUTO 9.36 K/mm3 (1.96-9.15); NEUTROPHILS PERCENT AUTO 77 % (41-73); Platelet Count 345 K/mm3 (150-400); RDW Coefficient Variation 13.3 % (11.7-14.2); RDW Standard Deviation 45.5 fL (35.1-46.3); Red Blood Cell Count 3.98 M/mm3 (4.30-5.90); White Blood Cell Count 12.12 K/mm3 (4.00-11.30)
[2021-05-03 03:56] LABS: Alanine Aminotransfer (ALT/SGP 20 U/L (12-78); Albumin/Globulin Ratio 0.8 (0.8-1.8); Alk Phos 85 U/L (50-136); Anion Gap 6 mmol/L (6-16); Aspartate Aminotrans (AST/SGOT 11 U/L (12-37); Bilirubin, Total 0.2 mg/dL (0.1-1.0); Blood Urea Nitrogen 12 mg/dL (8-24); Bun/Creatinine Ratio 18.6 (12.0-20.0); CO2, Blood 29 mmol/L (21-32); Calcium, Blood 9.3 mg/dL (8.5-10.1); Chloride, Blood 106 mmol/L (98-108); Creatinine, Blood 0.64 mg/dL (0.60-1.20); Globulin, Blood 3.8 g/dL (2.2-4.0); Glomerular Filtration Rate >60 (60-); Glucose, Blood 114 mg/dL (70-99); Potassium, Blood 3.8 mmol/L (3.5-5.5); Sodium, Blood 141 mmol/L (136-145); Total Protein, Blood 6.8 g/dL (6.4-8.2)
--- NOTE | 2021-05-03 05:26 | NUR ---
SHIFT SUMMARY\ PATIENT SLEPT WELL THROUGH NIGHT. PRECEDEX HAD TO BE TITRATED UP TO MAXIMUM OF 1.0 MCG/KG/HR. NO ACUTE CHANGES OVERNIGHT. ASSESSMENT IS CHARTED. VSS. WILL CONTINUE TO MONITOR.
--- NOTE | 2021-05-03 11:59 | NUR ---
REASSESSMENT PT DROWSY, BUT FOLLOWING DIRECTIONS THIS MORNING SO PRECEDEX TITRATED OFF. HE HAS WOKEN UP MORE SINCE THEN AND IS ALERT, ORIENTED TO PERSON AND PLACE. HE EVEN REMEMBERED THAT HE CAME IN FOR A BLOOD CLOT ALTHOUGH HE REMAINS EAGER TO GO HOME. CONTINUES IN VEST RESTRAINT HE HAS TRIED TO GET UP WITHOUT HELP AND HE IS VERY WEAK. LUNGS ARE COARSE AND CONGESTED COUGH CONTINUES. RA. ST IN THE 1 TEENS. AN HOUR AFTER RECEIVING HIS LISINOPRIL THIS MORNING PT'S BP DROPPED SUDDENLY TO THE 60S AND HR WAS IN THE 130S. PT STATES HE FELT DIZZY AND OFF AT THAT TIME. HE WAS ALSO WORKING ON FINISHING BREAKFAST. ELEVATED PT'S FEET IN THE RECLINER AND LAID HIM BACK A LITTLE AND WITHIN 10 MINUTES BP RETURNED TO BASELINE AND HR SLOWED DOWN TO 120S. PT DENIED ANY ASSOCIATED CHEST PAIN OR OTHER SYMPTOMS. HE IS EATING WELL. SCHULTZ WITH ADEQUATE OUTPUT. CONTINUING TO MONITOR.
--- NOTE | 2021-05-03 17:01 | NUR ---
SHIFT SUMMARY PT HAS REMAINED OFF THE PRECEDEX SO FAR TODAY. HE OCCASIONALLY GETS AGITATED, BUT IS ABLE TO BE TALKED BACK DOWN. PT GOT VERY AGITATED WHEN HIS WAS VISITING, BUT EVENTUALLY CALMED DOWN FOR ABOUT HALF AN HOUR, THEN GOT WORKED BACK UP UNTIL HIS LEFT. HE IS CURRENTLY SITTING IN THE CHAIR TEXTING OR TALKING ON HIS PHONE. HIS MAIN COMPLAINT IS WANTING TO GO HOME OR RESTLESS LEGS, WHICH HIS REQUIP WAS RESTARTED FOR LAST NIGHT. HE REMAINS ORIENTED TO PERSON, PLACE AND SITUATION. LUNGS ARE COARSE UNTIL HE COUGHS AND CLEARS THEM. RA. ST IN THE 110S, BP STABLE. FOELY REMOVED THIS AFTERNOON, WAITING FOR FIRST VOID. PT SHOWERED WITH ASSISTANCE AGAIN TODAY. ALL OF PT'S 'S QUESTIONS WERE ANSWERED WHEN SHE WAS HERE BUT SHE STILL SEEMED UPSET WITH NURSING STAFF. PROVIDED EDUCATION ON ALCOHOL WITHDRAWAL AND THAT PT IS DOING BETTER, BUT SHE KEPT INSISTING HE IS DOING WORSE. PROVIDED EXPECTED PLAN OF CARE FOR PT'S BLOOD CLOT TOMORROW, BUT EXPLAINED THAT TIMELINE WON'T BE GUARANTEED UNTIL DR. MANUEL SEES PT. AROUND 15 MINUTES SPENT DISCUSSING PT AND HIS CARE WITH HIS IN ADDITION TO TIME SPENT IN THE ROOM TALKING WITH HER WHILE CARING FOR THE PT.
--- NOTE | 2021-05-04 01:18 | NUR ---
05/04 @ 01:05 RESTARTED PRECEDEX DRIP DUE TO INCREASED PATIENT AGITATION. ASKED DR MONTANEZ FOR ADDITIONAL OPTION ATIVAN WAS NOT HELPING CALM PATIENT, PER DR MONTANEZ RESTART PRECEDEX IF LIBRIUM AND ATIVAN WERE NOT WORKING. PT IS ANGRY THAT HE CANNOT GO WALK AROUND OUTSIDE AND SMOKE CIGARETTE. ATTEMPTED EDUCATION THAT PT IS REQUIRING 1-2 PEOPLE WITH WALKER TO MOVE AROUND, PT STATES "I DON'T NEED NO FING WALKER, I WALK ALL THE FING TIME BY MYSELF." INFORMED PT HE WOULD FALL, PT STATES "I DON'T CARE, I'VE FALLEN BEFORE, I'LL JUST PICK MYSELF BACK UP." ATTEMPTED MORE EDUCATION, REDIRECTION, PT FIXATED ON GOING TO WALK OUTSIDE, NOT OK WITH THE IDEA OF SIMPLY STANDING AT BEDSIDE OR GETTING UP IN CHAIR, PT STATES "I WANT TO GO OUTSIDE." RESTARTED PRECEDEX, PT SWEARING AT STAFF, CONTINUOUSLY ATTEMPTING TO EXIT BED. WILL CONTINUE TO MONITOR.
--- NOTE | 2021-05-04 05:48 | NUR ---
SHIFT SUMMARY EARLY IN SHIFT JOCY WAS PLEASANT, ABLE TO STAND AT BEDSIDE TO URINATE. NIGHT PROGRESSED, JOCY BECAME MORE AGITATED THAT HE WAS NOT GETTING TO SLEEP DESPITE MEDICATIONS. WAS GIVING ATIVAN FOR AGITATION, HEADACHE, MILD TREMOR, DID NOT SEEM TO HELP; IF ANYTHING I THINK ATIVAN MAY HAVE MADE HIS CONDITION WORSE, WILL DISCUSS THIS WITH DAY SHIFT. DESPITE GIVING 4 MG ATIVAN IVP DID NOT ALEVIATE HEADACHE NOR AGITATION. PT MAIN COMPLAINT WAS GETTING UP AND WALKING. HELPED PT STAND AT BEDSIDE 3 TIMES TO URINATE. ON THE 3RD TIME PT HAD BECOME MORE LETHARGIC, TRIED TO TALK PT OUT OF STANDING, BUT GAVE IN. PT WAS INITIALLY AGREEABLE TO ONLY STANDING AT BEDSIDE. ONCE STANDING, PT ATTEMPTED TO WALK, TOLD PT I COULDN'T DO THAT WE WOULD NEED GAIT BELT, PT STATED "I DON'T NEED NO GAIT BELT, AND I DON'T NEED YOUR HELP!" HE SAT ON HIS BUTT TO THE BED. PT ATTEMPTED TO STAND AGAIN, BUT DID NOT MAKE IT COMPLETELY OFF BED BEFORE HE HAD TO SIT BACK IN BED. INFORMED PT WE WOULD TRY AGAIN TOMORROW WITH PHYSICAL THERAPY, PT TOO WEAK TO STAND, STARTED SWATTING AT THIS NURSE. IT WAS AT THIS POINT I PLACED PT IN BILAT SOFT WRIST RESTRAITNS. I WALKED AROUND BED TO PLACE OTHER WRIST RESTRAINT, PT KICKED AT ME, PLACED SOFT ANKLE RESTRAINTS. OVER THE COURSE OF THE NEXT 4 HOURS PT GOT LEFT HAND OUT OF RESTRAINT TWICE AND SUBSEQUENTLY PULLED OUT 2 IVS, AND HIS CONSTANT WRIGGLING DISLODGED THE 3RD. HAVE REPLACED 1 IV, NOW THAT IS SEDATED WILL PLACE 2ND IV. SEE OTHER NOTE FOR FURTHER DISCUSSIONS I HAD WITH PATIENT. AROUND 01:45 ALE, PT , CALLED, UPDATED REGARDING EVENTS LEADING TO TURNING PRECEDEX BACK ON, PLACING RESTRAINTS. RECENTLY CHANGED OUT SOFT RESTRAINTS FOR TUFF CUFFS PT HAD GOTTEN SELF OUT OF RESTRAINTS AND PULLED 2 IVs. ASSESSMENT IS CHARTED. VSS. WILL CONTINUE TO MONITOR.
--- NOTE | 2021-05-04 07:22 | NUR ---
SHIFT SUMMARY UPDATE: 05:30 ATTEMPTED TO DECREASE PRECEDEX FROM 1.4 TO 1.2, PT BECAME VERY AGITATED, HAS BEEN CONTINUOUSLY YELLING/SCREAMING/CURSING AT STAFF, ASKING FOR A KNIFE TO CUT HIMSELF LOOSE AND "GUT YOU LIKE A FING PIG," INFORMED PATIENT I WOULD NOT AGREE TO THIS REQUEST. REFUSED TO TAKE LIBRIUM, SIMPLY STATES "FK YOU". REPORT GIVEN TO DAY SHIFT.
--- NOTE | 2021-05-04 18:02 | NUR ---
SHIFT SUMMARY PT HAS BEEN AGITATED THROUGHOUT THE DAY. PT BEGAN THE DAY ON PRECEDEX GTT WHICH WAS SLOWLY TITRATED DOWN AND DC'D. PT WAS STARTED ON HALDOL FOR AGITATION. DR. RESENDIZ BELIEVES THAT THE ETOH WITHDRAWAL IS OVER AND AT THIS POINT THE PT HAS SOME BASELINE DEMENTIA AND PSYCH ISSUES THAT NEED TO BE ADDRESSED AND MEDICATED FOR; YOVANNYKAUFF TO CONSULT ON MEDICATIONS. PT HAS BEEN IN LOCKED RESTRAINTS AND HUMBERTO VEST TODAY. SHANNON AREVALO TRIALED REMOVING THE BILATERAL ANKLE RESTRAINTS BUT THE PT WAS TRYING TO GET OUT OF BED UNSAFELY, HE WAS CURSING AND YELLING AT STAFF AND WAS JERKING HIS LEGS AROUND AND KICKING AT STAFF. THE RESTRAINTS WERE PLACED BACK ON HIS LEGS. THIS EVENING PT BEGAN COMPLAINING ABOUT HIS LEGS FEELING CRAMPED AND SHANNON AREVALO AGAIN REMOVED THE BILATERAL ANKLE THIS EVENING TO ALLOW THE PT A BREAK. PT IS NOW IN BILATERAL WRIST RESTRAINTS AND THE HUMBERTO. PT CONTINUES TO SWEAR AT STAFF AND YELL AND IS AGITATED; THE HALDOL DOES SEEM TO HELP WITH THIS. PT HAS BEEN ABLE TO ASK FOR THE URINAL TODAY. PT HAD A BED BATH AND FULL LINEN CHANGE TODAY. PT HAS RECEIVED ASSISTANCE WITH MEALS TODAY AND HAS BEEN OFFERED DRINKS AND TOILETING FREQUENTLY. PT IS RESTING IN BED AT THIS TIME
--- NOTE | 2021-05-05 05:44 | NUR ---
SHIFT SUMMARY PATIENT SLEPT THRU REST OF NIGHT AFTER 23:30 HALDOL DOSE LAST NIGHT. WOULD WAKE MILDLY WHILE TURNING, OTHERWISE SLEPT WELL THRU NIGHT. DOWNGRADED TO MED FLOOR STATUS HALDOL SEEMS TO BE WORKING FOR AGITATION. ASKED DR PATEL LAST NIGHT IF SHE WOULD LIKE AM LABS, STATED "WE WILL LET DAY TEAM DECIDE." ASSESSMENT IS CHARTED. VSS. WILL CONTINUE TO MONITOR.
--- NOTE | 2021-05-05 07:34 | NUR ---
Assumed care of this pt this morning. He is a/o to self and resting in bed with eyes closed. He has a marky vest and tough cuffs in place as ordered. He is on video monitoring for safety and is visible via remote monitoring. Pt is medical status and is awaiting a bed on the third floor.
--- NOTE | 2021-05-05 09:25 | NUR ---
Pt is now calm and cooperative. He worked with therapy and is now up to the recliner. He is out of restraints and is following directions. He has his call light in reach, a tab alarm is in place and he is visible from the nurses station.
--- NOTE | 2021-05-05 12:46 | NUR ---
Dr Davison saw the pt this morning and has written orders to dc home with . All the orders/instructions have been reviewed with the who verbalized an understanding and [facility] the [facility] of the . Leticia, the reports that she will be out front at 1300 to picking machine operator the pt. The pt has been cooperative and compliant with all care this morning.
== END 2021-05-05 13:00 | disposition home or self-care (01) | DRG 299 ==
LOC: ER 11:15 → PCU 11:16 → ICUW 04-27 20:07
PROVIDERS: Emergency Medicine; Internal Medicine; Pharmacist; ADMIT Internal Medicine
DX: I73.9 Peripheral vascular disease, unspecified (principal); G92 Toxic encephalopathy; E43 Unspecified severe protein-calorie malnutrition; F10.231 Alcohol dependence with withdrawal delirium; Z68.1 Body mass index [BMI] 19.9 or less, adult; F17.290 Nicotine dependence, other tobacco product, uncomplicated; F15.10 Other stimulant abuse, uncomplicated; F04 Amnestic disorder due to known physiological condition; F03.90 Unspecified dementia, unspecified severity, without behavioral disturbance, psychotic disturbance, mood disturbance, and anxiety; J44.9 Chronic obstructive pulmonary disease, unspecified; D72.829 Elevated white blood cell count, unspecified; R45.1 Restlessness and agitation; Z86.718 Personal history of other venous thrombosis and embolism; Z95.820 Peripheral vascular angioplasty status with implants and grafts; Z79.82 Long term (current) use of aspirin; Z79.899 Other long term (current) drug therapy; Z71.6 Tobacco abuse counseling; Z78.1 Physical restraint status
CPT/HCPCS: 36415; 51702; 71045; 76770; 80048; 80053; 80061; 81003; 82550; 84443; 85025; 85027; 85610; 85730; 93005; 93010; 93926; 96374; 96375; 96376; 97110; 97162; 99285-25; A9270; C9113; G0378; J0360; J1630; J1644; J2060; J2270; J3010; J3411; J3475; J7030; J7042; J7120

== ENCOUNTER 2021-09-16 06:24 | Day surgery (SDC) | payer OTHER, MEDICARE ==
[~2021-09-16] VITALS: Ht 182.9 cm; Wt 61.0 kg
[~2021-09-16 06:24] MED LIST: Aspir 8181 MG PO; DICLOFENAC NA TOP; FERSU300 PO; FISH OIL 1,2001 EAC1 PO; GABA300 PO; LIDO700A20 TOP; LISI10 PO; MULVITA PO; OYSTER SHELL 51 EACH PO; ROPI1 PO; TIZA4 PO
--- NOTE | 2021-09-16 07:17 | NUR ---
PT REPORTS DRINKING A SHOT OF FIREBALL THIS AM PRIOR TO ARRIVAL. PT SLEEPING OFF AND ON IN THE RECOVERY ROOM. AROUSES TO VERBAL STIMULI. DR MANUEL MADE AWARE. AWAITING CALL BACK.
--- NOTE | 2021-09-16 09:29 | NUR ---
DR MANUEL IN ROOM DISCUSSING PLAN OF CARE. PT AROUSES TO VERBAL STIMULI. HAS BEEN SLEEPING MOST THE MORNING. PT NOW STATING HE LAST HAD ALCOHOL AROUND NOON, JUST HASN'T SLEPT LASTNIGHT.
[2021-09-16] MEDS ORDERED: [UNRECOGNIZED DRUG - OTHER] (09:40)
[2021-09-16] MEDS ORDERED: XARELTO20 MG PO (09:41)
[2021-09-16] MEDS ORDERED: ZOCOR20 MG PO (09:42)
[2021-09-16] MEDS ORDERED: CLOP75 PO (09:43)
[2021-09-16] MEDS ORDERED: DEPAKOTE ER500 MG PO (09:43)
[2021-09-16] MEDS ORDERED: TURMERIC500 M2 PO (09:44)
[2021-09-16] MEDS ORDERED: FISH OIL 1,2001 EAC1 PO (09:45)
[2021-09-16] MEDS ORDERED: Calcium Carbon500 MG (09:46)
--- NOTE | 2021-09-16 18:14 | NUR ---
DISCHARGE PT AMBULATED TO RESTROOM AND DRESSED SELF WITH NO COMPLICATIONS. R FEMORAL SITE WITH NO BLEEDING, OOZING OR HEMATOMA NOTED. PT DENIES ANY PAIN AT SITE. PT STATES HIS UNDERSTANDING OF SITE CARE AND DC INSTRUCTIONS AND DENIES ANY QUESTIONS OR CONCERNS. L PT SITE WITH NO BLEEDING, OOZING OR HEMATOMA NOTED. VSS. IV DCD WITH CATH INTACT. PT TAKEN BY WHEELCHAIR TO EXIT WHERE WAS WAITING WITH VEHICLE. INSTRUCTIONS GONE OVER WITH WHO ALSO DENIES ANY QUESTIONS OR CONCERNS.
== END 2021-09-16 23:48 | disposition home or self-care (01) ==
LOC: MHTC 06:24
DX: I70.213 Atherosclerosis of native arteries of extremities with intermittent claudication, bilateral legs (principal)
CPT/HCPCS: 76937; 99152; 99153; C1725; C1760; C1769; C1887; C1894; J1644; J2250; J3010; J7030; J7050; Q9967

== ENCOUNTER 2021-11-16 06:12 | Day surgery (SDC) | payer OTHER ==
[~2021-11-16] VITALS: Ht 182.9 cm; Wt 61.0 kg
[~2021-11-16 06:12] MED LIST changes: +CLOP75 PO; +Calcium Carbon500 MG; +DEPAKOTE ER500 MG PO; +TURMERIC500 M2 PO; +XARELTO20 MG PO; +ZOCOR20 MG PO; +[UNRECOGNIZED DRUG - OTHER]
--- NOTE | 2021-11-16 07:30 | NUR ---
DR DOVE IN ROOM TO SEE PT AND HIS . PT RECEIVING DUONEB TX.
--- NOTE | 2021-11-16 10:36 | NUR ---
AT 1015 PT RETURNED TO RECOVERY ROOM IN BED. LEFT RADIAL TR BAND SITE SOFT NON-TENDER WITH NO HEMATOMA, NO PULSATILE BLEEDING AND WRIST BOARD IN PLACE. LEFT FEMORAL GROIN SITE SOFT NON-TENDER WITH NO HEMATOMA, NO PULSATILE BLEEDING WITH INTACT DRESSING. LEFT DP PULSE DOPPLER. PT DENIES CHEST PAIN. DR MANUEL IN ROOM TO SEE PT. SEE NEW ORDERS. CALL LIGHT IN REACH.
--- NOTE | 2021-11-16 13:13 | NUR ---
DISCHARGE INSTRUCTIONS REVIEWED; ALL QUESTIONS ANSWERED.
--- NOTE | 2021-11-16 13:19 | NUR ---
DEFLATED LEFT TR BAND REMOVED AND POLYMEM PLACED OVER LEFT RADIAL SITE. 20 G IV DISCONTINUED FROM RIGHT FOREARM WITH INTACT CANNULA. LEFT FEMORAL GROIN SITE AND LEFT RADIAL SITE WITH WRIST BOARD AND POLYMEM IN PLACE NO HEMATOMA, NO PULSATILE BLEEDING BOTH SITES STABLE AND NO CHANGES.
--- NOTE | 2021-11-16 13:41 | NUR ---
PT ESCORTED OUT VIA WHEELCHAIR ESCORT.
== END 2021-11-16 13:40 | disposition home or self-care (01) ==
LOC: MHTC 06:12
DX: I70.223 Atherosclerosis of native arteries of extremities with rest pain, bilateral legs (principal); Z79.02 Long term (current) use of antithrombotics/antiplatelets
CPT/HCPCS: 76937; 85347; A9270; C1725; C1769; C1876; C1887; C1894; J0360; J1644; J2250; J2704; J3010; J7030; J7040; J7050; Q9967

== ENCOUNTER 2022-02-01 06:31 | Day surgery (SDC) | payer OTHER ==
[~2022-02-01] VITALS: Ht 182.9 cm; Wt 57.0 kg
[~2022-02-01 06:31] MED LIST changes: +ASPI81CH PO; +IBUP200 PO; +MELO7.5 PO; +QUET100 PO
--- NOTE | 2022-02-01 11:30 | NUR ---
PT UP TO THE BATHROOM /C SBA. TOLERATED WELL. -BLEEDING OR SWELLING R GROIN AREA.
--- NOTE | 2022-02-01 11:45 | NUR ---
0959 PATIENT RETURNED FROM THE CATHLAB VIA BED. PLACED ON THE MONITOR. VVS STABLE. SBAR FROM SHANNON HURD. RIGHT GROIN AND LEFT PEDAL SITES CHECKED. PEDAL PULSES DOPPLER. PATIENT AWAKE FROM ANESTHESIA SEDIATION BUT VERY SQUIRMY, NOT AGITATED, BUT PLEASANT. CONTINUE TO MONITOR. DR. MANUEL BRIEFLY AT THE BEDSIDE.
--- NOTE | 2022-02-01 11:56 | NUR ---
1030 COFFEE AND BREAKFAST TRAY SET UP FOR THE PAITENT. HOB UP 30 DEGREES. RIGHT GROINA DN LEFT PEDAL STABLE.
--- NOTE | 2022-02-01 12:00 | NUR ---
PT AND VERBALIZED UNDERSTANDING OF WRITTEN AND VERBAL D/C INST. IV REMOVED. -BLEEDING OR SWELLING R GROIN AREA. PT TAKEN OUT OF THE HRT CENTER VIA W/C.
== END 2022-02-01 12:00 | disposition home or self-care (01) ==
LOC: MHTC 06:31
DX: I73.9 Peripheral vascular disease, unspecified (principal); I10 Essential (primary) hypertension; Z87.891 Personal history of nicotine dependence
CPT/HCPCS: 75716; 75774; 76937; 85347; C1725; C1760; C1769; C1874; C1887; C1894; C2623; C9765; J1644; J2704; J7030; J7050; Q9967

== ENCOUNTER 2023-01-01 05:57 | Inpatient (IN) | payer OTHER ==
[~2023-01-01] VITALS: Ht 172.7 cm; Wt 53.3 kg
[2023-01-01 06:19] LABS: PCO2 Arterial 41.3 mmHg (35-45); PO2 Arterial 185 mmHg (80-100); pH Blood Arterial 7.44 (7.35-7.45)
[2023-01-01 06:31] LABS: BASOPHILS ABSOLUTE AUTO 0.09 K/mm3 (0.00-0.23); BASOPHILS PERCENT AUTO 0 % (0-2); EOSINOPHILS PERCENT AUTO 0 % (0-6); Hematocrit 40.4 % (37.0-53.0); Hemoglobin 13.2 g/dL (13.5-17.5); IMMATURE GRAN ABSOLUTE AUTO 0.14 K/mm3 (0.00-0.10); IMMATURE GRAN PERCENT AUTO 1 % (0-1); LYMPHOCYTES ABSOLUTE AUTO 0.63 K/mm3 (0.84-5.20); LYMPHOCYTES PERCENT AUTO 3 % (21-46); MONOCYTES ABSOLUTE AUTO 1.77 K/mm3 (0.16-1.47); MONOCYTES PERCENT AUTO 9 % (4-13); Mean Corpuscular HGB 29.6 pg (26.0-34.0); Mean Corpuscular HGB Conc 32.7 g/dL (31.5-36.5); Mean Corpuscular Volume 91 fL (80-100); Mean Platelet Volume 9.8 fL (9.1-12.4); NEUTROPHILS ABSOLUTE AUTO 17.83 K/mm3 (1.96-9.15); NEUTROPHILS PERCENT AUTO 87 % (41-73); Platelet Count 267 K/mm3 (150-400); RDW Coefficient Variation 13.6 % (11.7-14.2); RDW Standard Deviation 45.6 fL (35.1-46.3); Red Blood Cell Count 4.46 M/mm3 (4.30-5.90); White Blood Cell Count 20.46 K/mm3 (4.00-11.30)
[2023-01-01 07:35] LABS: Albumin, Blood 2.5 g/dL (3.4-5.0); Albumin/Globulin Ratio 0.5 (0.8-1.8); Bilirubin, Total 0.4 mg/dL (0.1-1.0); Calcium, Blood 9.3 mg/dL (8.5-10.1); Creatinine, Blood 0.92 mg/dL (0.60-1.20); Globulin, Blood 4.9 g/dL (2.2-4.0); Potassium, Blood 4.5 mmol/L (3.5-5.5); Total Protein, Blood 7.4 g/dL (6.4-8.2)
[2023-01-01 07:59] LABS: Influenza A, PCR NEGATIVE (NEGATIVE); Influenza B, PCR NEGATIVE (NEGATIVE); Resp Syncytial Virus, PCR NEGATIVE (NEGATIVE); SARS-Cov-2 (COVID-19) PCR, MMC NEGATIVE (NEGATIVE)
--- NOTE | 2023-01-01 18:40 | NUR ---
PT PASSED BEDSIDE SWALLOW EVALUATION, HE WAS REMOVED FROM BIPAP PLACED ON NASAL CANNULA TO EAT DINNER TRAY. DR GUZMAN IS AWARE.
--- NOTE | 2023-01-01 20:28 | NUR ---
PATIENT UPDATE THIS RN AND RT ROSS AT BEDSIDE AROUND 2002 FOR VITALS/ASSESSMENT AND BREATHING TREATMENT. PATIENT WAS GIVEN BREATHING TREATMENT AND PROCEDED TO CONVERT TO AFIB WITH HR 150-160'S. PATIENT ON 6L AT THE TIME, SPO2 BEGAN TO DECREASE TO 86-88%. PATIENT PLACED BACK ON BIPAP 12/5 30% FIO2. CALL PLACED TO MD GRAY REGARDING CONVERSION AND HR. 5MG LOPRESSOR PUSH ORDERED. PUSH GIVEN BY THIS RN. HR NOW 110-130'S. PATIENT DENIES ANY CARDIAC S/S. NO OVERT SIGNS OF DISTRESS. BIPAP FIO2 INCREASED TO 40% TO MAINTAIN SPO2 >92%. BP STABLE AT THIS TIME WITH SBP 100, MAP 73. CYCLING BP'S Q15MIN. LR INFUSING PER EMAR. PATIENT IS CALM AND COOPERATIVE WITH CARE. EDUCATED APPROPRIATE ABOUT KEEPING BIPAP ON. BED IN LOWEST POSITION AND CALL LIGHT WITHIN REACH.
--- NOTE | 2023-01-01 22:43 | NUR ---
PATIENT UPDATE PATIENT BECAME ANXIOUS, STATING THAT HE COULD NOT BREATHE WHILE ON 6L VIA NC. SPO2 94% AT THIS TIME. THIS RN ATTEMPTED TO PUT PATIENT BACK ON BIPAP. PATIENT REFUSED D/T ANXIETY. THIS RN MEDICATED WITH 1MG IV ATIVAN AT 2214 PER EMAR SO PT COULD HANDLE BIPAP PRESSURE. BIPAP PLACED ON PATIENT. TACHYPNEA CONTINUES WITH RR 26. PATIENT APPEARS DIAPHORETIC AND FLUSHED. DENIES CHEST PAIN/PRESSURE/PALPITATIONS. BP STABLE AT THIS TIME. AFIB RVR CONTINUES WITH HR 130-160'S. MD GRAY WITH ORDERS FOR 25MG PO LOPRESSOR FOR RATE CONTROL. WHEN THIS RN RETURNED TO ROOM TO GIVE MEDICATION PATIENT WAS ABLE TO BE SLIGHTLY AROUSED BY VERBAL STIMULI BUT QUICKLY FELL BACK TO SLEEP. UNABLE TO GIVE PO MED AT THIS TIME. WILL REASSESS. BP CONTINUES TO BE STABLE WITH SBP 114 AT THIS TIME. PULSES STRONG THROUGHOUT. WILL CONTINUE TO MONITOR FOR HEMODYNAMIC INSTABILITY AND UPDATE PROVIDER NEEDED. BED IN LOWEST POSITION AND CALL LIGHT WITHIN REACH.
--- NOTE | 2023-01-01 23:24 | NUR ---
PATIENT UPDATE SEE PREVIOUS NOTE. CALL PLACED TO MD GRAY D/T PATIENT BEING TOO LETHARGIC TO TAKE PO LOPRESSOR AND AFIB RVR HR OF 150-170'S. MD WITH ORDERS FOR 10MG LOPRESSOR PUSH. BP STABLE. IV LOPRESSOR PUSH GIVEN. HR 120-130'S THIS RN WRITES THIS NOTE. BP CYCLING [id number], WILL MONITOR CLOSELY. PATIENT REMAINS ON BIPAP 12/5 30% FIO2. RR 26-30. SPO2 >92%. HOB ELEVATED. DIAPHORETIC. PATIENT'S EXTREMETIES APPEAR RESTLESS WITH JERKING NOTED; PT DID PREVIOUSLY INFORM THIS RN THAT HE HAS "PRETTY SEVERE RESTLESS LEG SYNDROME AT NIGHT". THIS RN WILL CONTINUE TO MONITOR
--- NOTE | 2023-01-02 03:03 | NUR ---
SHIFT SUMMARY SEE PREVIOUS NOTES FOR UPDATES/EVENTS DURING THIS SHIFT. PATIENT REMAINS ON BIPAP 12/5 30% FIO2 WITH SPO2 >92%. TACHYPNEA NOTED. PATIENT CONTINUES TO BE IN AFIB RVR WITH HR CURRENTLY SUSTAINING 130-140'S. IV LOPRESSOR PUSH X3. SBP 90'S AT THIS TIME WITH MAP >70. PATIENT IS LETHARGIC BUT IS ABLE TO WAKE WITH VERBAL STIMULI AND IS ANSWERING QUESTIONS APPROPRIATELY BUT QUICKLY FALLS BACK TO SLEEP. PATIENT MOVING SELF IN BED OFTEN. SECOND BAG OF LR INFUSING PER EMAR. HOB ELEVATED. PULSES FELT THROUGHOUT. LS DIM THROUGHOUT, BUT SIGNIFICANTLY MORE IN THE LEFT LOBES. PATIENT TEMP 96.6, AND COLD IN EXTREMETIES. BED IN LOWEST POSITION AND CALL LIGHT WITHIN REACH. THIS RN TO REPORT TO RAHEEM ORTEGA WHO WILL ASSUME CARE FOR THE REMAINDER OF NOC SHIFT.
[2023-01-02 04:16] LABS: BASOPHILS ABSOLUTE AUTO 0.04 K/mm3 (0.00-0.23); BASOPHILS PERCENT AUTO 0 % (0-2); EOSINOPHILS ABSOLUTE AUTO 0.07 K/mm3 (0.00-0.68); EOSINOPHILS PERCENT AUTO 1 % (0-6); Hematocrit 34.9 % (37.0-53.0); Hemoglobin 11.4 g/dL (13.5-17.5); IMMATURE GRAN ABSOLUTE AUTO 0.07 K/mm3 (0.00-0.10); IMMATURE GRAN PERCENT AUTO 1 % (0-1); LYMPHOCYTES ABSOLUTE AUTO 0.58 K/mm3 (0.84-5.20); LYMPHOCYTES PERCENT AUTO 4 % (21-46); MONOCYTES ABSOLUTE AUTO 1.21 K/mm3 (0.16-1.47); MONOCYTES PERCENT AUTO 9 % (4-13); Mean Corpuscular HGB 29.7 pg (26.0-34.0); Mean Corpuscular HGB Conc 32.7 g/dL (31.5-36.5); Mean Corpuscular Volume 91 fL (80-100); Mean Platelet Volume 10.2 fL (9.1-12.4); NEUTROPHILS PERCENT AUTO 86 % (41-73); Platelet Count 242 K/mm3 (150-400); RDW Coefficient Variation 13.6 % (11.7-14.2); RDW Standard Deviation 45.6 fL (35.1-46.3); Red Blood Cell Count 3.84 M/mm3 (4.30-5.90); White Blood Cell Count 14.07 K/mm3 (4.00-11.30)
[2023-01-02 04:38] LABS: Albumin, Blood 1.9 g/dL (3.4-5.0); Albumin/Globulin Ratio 0.4 (0.8-1.8); Bilirubin, Total 0.3 mg/dL (0.1-1.0); Bun/Creatinine Ratio 49.8 (12.0-20.0); Calcium, Blood 8.5 mg/dL (8.5-10.1); Creatinine, Blood 0.62 mg/dL (0.60-1.20); Globulin, Blood 4.6 g/dL (2.2-4.0); Potassium, Blood 4.4 mmol/L (3.5-5.5); Total Protein, Blood 6.5 g/dL (6.4-8.2)
--- NOTE | 2023-01-02 05:49 | NUR ---
0445- NOTIFIED OF LOW B/P NS BOLUS 500 CC ORDERED AND ADMINISTERED
--- NOTE | 2023-01-02 05:50 | NUR ---
NOTIFIED OF SUSTAINED HR AFIB 150'S, AWAITING NEW ORDER FOR DIGOXIN
[2023-01-02 09:13] LABS: Free Thyroxine 0.9 ng/dL (0.70-1.60); Magnesium, Blood 2.3 mg/dL (1.6-2.4); Thyroid Stimulating Hormone 0.463 uIU/mL (0.360-4.800)
--- NOTE | 2023-01-02 16:53 | NUR ---
PT BEGAN WITH BEING ANXIOUS DENIES ANY HALLUCINATIONS OR TACTILE DISTUBANCES, SHORTLY LATER BEGAN GRABBING FOR THINGS IN THE AIR THAT WERE NOT THERE AND PICKING AND THINGS IN THE AIR. PT PULLING APART BIPAP. PT IS NOW REQUIRING BIPAP AND HE APPEARS FATIGUED WITH MORE COARSE LUNG SOUNDS AND WAS BEGINNING TO REMOVE NASAL CANNULA. 1MG ATIVAN ADMINISTERED WHICH HAD A VERY SHORT AFFECT PT WAS SHORTLY THEN REMOVING AND DISASSEMBLING BIPAP AND [id number] TO HALLUCINCATIONS AND THE DECISION WAS MADE TO THEN GIVE 2MG MORE ATIVAN IVP PT IS NOW CALM AND SLEEPING
--- NOTE | 2023-01-02 17:36 | NUR ---
PT HAD BEEN ALERT, ORIENTED X3 FOR MOST OF SHOFT. HE WAS ON NASAL CANNULA WELL UP UNTIL PREVIOUS NOTE WHEN MENTATION BEGAN TO CHANGE. PT HAS RECIEVED IVP OF LOPRESSOR FOR HR WHICH DID NOT AFFECT HR OR BP. PT WAS STARTED ON ORAL CONTROL WHICH HAS STARTED TO SHGOW SOME RATE CONTROL AT THIS TIME. PT IS NOW RESTING COMFORTABLY THAT CIWA MEDICATIONS HAVE BEEN STARTED. S/O WAS UPDATED THIS AM. LS COARSE T/O PT ENCOURAGED TO WEAR BIPAP NEEDED WHICH WAS TOLERATED WELL UNTIL THIS EVENING.
[2023-01-03 00:12] LABS: Base Excess Venous 2.9 mmol/L; Bicarbonate Venous 26.7 mmol/L (24.0-30.0); PCO2 Venous 41.8 mmHg (38-42); pH Blood Venous 7.42 (7.34-7.37)
[2023-01-03 03:34] LABS: Base Excess Venous 3.1 mmol/L; Bicarbonate Venous 26.8 mmol/L (24.0-30.0); PCO2 Venous 41.6 mmHg (38-42); pH Blood Venous 7.43 (7.34-7.37)
--- NOTE | 2023-01-03 03:45 | NUR ---
PT ARRIVED FROM PCU TO ICU ROOM 5. PT IS CURRENTLY ON BIPAP, RR IN THE 40S. HE WAS RECENTLY GIVEN ATIVAN FOR ETOH W/DRAWAL WHILE STILL IN PCU AND IS MINIMIALLY RESPONSIVE AT THIS TIME. DR MONTANEZ WAS NOTIFIED AND THE PT WAS GIVEN ROMAZICON (SEE EMAR). PT DID BECOME MORE ALERT, OPENED HIS EYES AND ANSWERED QUESTIONS APPROPRIATLY. HE IS STILL LETHARGIC. HIS BREATH SOUNDS BILATERALLY HAVE BOTH INSPIRATORY AND EXPIRATORY WHEEZING W/DIMINISHED BASES. HE IS AFIB RVR ON THE DETECTIVE CAPTAIN 140-160S, BP IS MAINTAINING A MAP >65 AT THIS TIME. RADIAL AND PEDAL PULSES ARE PRESENT BILATERALLY. DR. MONTANEZ CAME TO BEDSIDE, ORDERS WERE GIVEN FOR MAGNESIUM INFUSION AND CARDIZEM PUSH. 12 LEAD EKG WAS DONE PER MD ORDER, SHOWING AFIB W/RVR. PT IS FRAIL AND THIN IN APPEARANCE AT THIS TIME. PCU NURSE RAHEEM REPORTED STRAIGHT CATH JUST PRIOR TO PT TRANSFER W/URINE OUTPUT OF 475.
[2023-01-03 04:25] LABS: BASOPHILS ABSOLUTE AUTO 0.04 K/mm3 (0.00-0.23); BASOPHILS PERCENT AUTO 0 % (0-2); EOSINOPHILS ABSOLUTE AUTO 0.01 K/mm3 (0.00-0.68); EOSINOPHILS PERCENT AUTO 0 % (0-6); Hematocrit 36.4 % (37.0-53.0); Hemoglobin 11.8 g/dL (13.5-17.5); IMMATURE GRAN ABSOLUTE AUTO 0.11 K/mm3 (0.00-0.10); IMMATURE GRAN PERCENT AUTO 1 % (0-1); LYMPHOCYTES ABSOLUTE AUTO 0.94 K/mm3 (0.84-5.20); LYMPHOCYTES PERCENT AUTO 6 % (21-46); MONOCYTES ABSOLUTE AUTO 1.33 K/mm3 (0.16-1.47); MONOCYTES PERCENT AUTO 8 % (4-13); Mean Corpuscular HGB 29.6 pg (26.0-34.0); Mean Corpuscular HGB Conc 32.4 g/dL (31.5-36.5); Mean Corpuscular Volume 92 fL (80-100); Mean Platelet Volume 10.7 fL (9.1-12.4); NEUTROPHILS ABSOLUTE AUTO 13.77 K/mm3 (1.96-9.15); NEUTROPHILS PERCENT AUTO 85 % (41-73); NRBC ABSOLUTE 0.02 K/mm3 (0.00-0.02); NRBC Auto 0.1 /100 WBC (0.0-0.2); Platelet Count 298 K/mm3 (150-400); RDW Coefficient Variation 13.7 % (11.7-14.2); Red Blood Cell Count 3.98 M/mm3 (4.30-5.90)
[2023-01-03 04:58] LABS: Albumin/Globulin Ratio 0.5 (0.8-1.8); Bilirubin, Total 0.2 mg/dL (0.1-1.0); Bun/Creatinine Ratio 49.1 (12.0-20.0); Calcium, Blood 8.7 mg/dL (8.5-10.1); Creatinine, Blood 0.57 mg/dL (0.60-1.20); Globulin, Blood 4.4 g/dL (2.2-4.0); Magnesium, Blood 2.2 mg/dL (1.6-2.4); Potassium, Blood 4.7 mmol/L (3.5-5.5); Total Protein, Blood 6.4 g/dL (6.4-8.2)
--- NOTE | 2023-01-03 05:41 | NUR ---
PT WAS GIVEN AMIODORONE BOLUS. HR IS STILL AFIB, 110-130S. BP WNL. RR IS STILL IN THE 40S AT THIS TIME. HE CONTINUES BIPAP W/ OXYGEN SAT 97% CURRENTLY. AMIODORONE DRIP BEEN ORDERED FOR RATE CONTROL. HE IS LETHARGIC BUT RESPONDS TO VERBAL STIMULI. LUNG SOUNDS REMAIN UNCHANGED FROM ADMISSION NOTE. HE IS REPORTEDLY IN ETOH W/DRAWAL WELL, PRECEDEX GTT IS ORDERED BUT HAS NOT BEEN NEEDED AT THIS TIME.
--- NOTE | 2023-01-03 08:00 | NUR ---
ASSUMED CARE OF PT AT 0700. PT RESPONDS TO NOXIOUS STIMULI. MOVING ALL EXTREMTIES. UNABLE TO RESPOND TO COMMANDS. PT ON BIPAP WITH SETTINGS AT 12/5, FiO2 30% SpO2 ABOVE 90% RR BETWEEN 30-50 BPM. PT IN SINUS RYTHYM WITH HR IN THE 70'S, BP STABLE. AMIO RUNNING AT 1MG/HR. BLADDER SCAN READING 160ML, WILL CONTINUE TO MONITOR URINE OUTPUT. PT NPO AT THIS TIME DUE TO HIGH RISK OF ASPIRATION.
--- NOTE | 2023-01-03 17:56 | NUR ---
SHIFT SUMMARY; PT IS ABLE TO OPEN EYES SPOTANEOUSLY, WILL ANSWER YES/NO QUESTIONS, FOLLOW COMMANDS. PT BECOMES AGITATED AT TIMES AND WILL PULL OFF BIPAP MASK AND PULL ON IV LINES. PT FIGHTS ORAL CARE AND WILL GRAB AT STAFF TO REMOVE [place]KAUR. ATIVAN GIVEN PER MAR WITH LITTLE EFFECT. PRECEDEX STARTED. PT CONTINUES TO BE ON BIPAP WITH SETTINGS AT 12/5, 30% FiO2. PT COUGH STRENGTH IS IMPROVING, VAZQUEZ THICK SECRETIONS NOTED. ATTEMPTED TO NT SUCTION WITH NO SUCCESS. RR BETWEEN 30-50. PT HAS BEEN IN SR SINCE 07 THIS AM, WITH HR BETWEEN 70-80. SBP 140-150'S. AMIO DRIP AT 0.5MG/HR. BLADDER SCANNED TWICE THIS SHIFT, BOTH UNDER 400ML. PT HAD TWO INCONT VOIDS, AND 30CC OF URINE OUTPUT, MD AWARE.
--- NOTE | 2023-01-03 18:24 | NUR ---
UPDATE: 1812: PT PULLING OFF MASK AND IV LINES. PT REFUSING TO ALLOW STAFF TO PLACE MASK ON, SWINGING ARMS OUT, CURSING AT STAFF. PT IS DISORIENTED X 4, PRECEDEX INCREASED, ATIVAN GIVEN PER DEC. CALLED WITH UPDATE, ORDERS FOR RESTRAINTS AND HFNC GIVEN, WILL DEFER FROM INTUBATING AT THIS TIME. BILATERAL WRISIT RESTRAINTS APPLIED, PT SWITCHED OVER TO HFNC WITH SETTINGS AT 60L 30% FiO2, SpO2 ABOVE 90% RR BETWEEN 40-50. RT AT BEDSIDE WITH BREATHING TREATMENT.
--- NOTE | 2023-01-03 19:15 | NUR ---
ASSUMED CARE OF PT @1900 FROM JOHN ORTEGA. BEDSIDE REPORT. PT IS SEDATED ON PRECEDEX 0.7MCG/KG/HR. PT IS RESTLESS AND AGGITATED BUT RESPONDS TO VERBAL STIMULI. DOES NOT FOLLOW COMMANDS OR ANSWER QUESTIONS. 02 VIA HIGH FLOW THERAPY, 50L/MIN W/02 30%. RR 20, SPO2 >94%. CONTINUOUS CARDIAC MONITORING. AMIODARONE 0.5MG/MIN. HR 70'S, SBP 130-150'S, MAP >65. IV 20GA BIA INFUSING PRECEDEX AND TKO. 20GA RFA INFUSING AMIODARONE. 20GA LAC PATENT W/SALINE LOCK. BSWR IN PLACE.
--- NOTE | 2023-01-03 21:01 | NUR ---
UPDATE SW DR LOPEZ RE: ORAL MEDICATIONS AND PT NPO STATUS AND ASP RISK. PER DR LOPEZ, PT ON PRECEDEX SO DEPAKOTE AND GABAPENTIN CAN BE HELD. PT HAS ORDERS FOR METOPROLOL PUSHES. HOLD ROPINIROLE AND SEROQUEL TONIGHT.
[2023-01-04 03:39] LABS: BASOPHILS ABSOLUTE AUTO 0.03 K/mm3 (0.00-0.23); BASOPHILS PERCENT AUTO 0 % (0-2); EOSINOPHILS ABSOLUTE AUTO 0.04 K/mm3 (0.00-0.68); EOSINOPHILS PERCENT AUTO 0 % (0-6); Hematocrit 40.4 % (37.0-53.0); Hemoglobin 12.8 g/dL (13.5-17.5); IMMATURE GRAN ABSOLUTE AUTO 0.11 K/mm3 (0.00-0.10); IMMATURE GRAN PERCENT AUTO 1 % (0-1); LYMPHOCYTES ABSOLUTE AUTO 0.74 K/mm3 (0.84-5.20); LYMPHOCYTES PERCENT AUTO 6 % (21-46); MONOCYTES ABSOLUTE AUTO 1.92 K/mm3 (0.16-1.47); MONOCYTES PERCENT AUTO 15 % (4-13); Mean Corpuscular HGB 29.3 pg (26.0-34.0); Mean Corpuscular HGB Conc 31.7 g/dL (31.5-36.5); Mean Corpuscular Volume 92 fL (80-100); Mean Platelet Volume 10.5 fL (9.1-12.4); NEUTROPHILS ABSOLUTE AUTO 10.09 K/mm3 (1.96-9.15); NEUTROPHILS PERCENT AUTO 78 % (41-73); Platelet Count 285 K/mm3 (150-400); RDW Coefficient Variation 13.5 % (11.7-14.2); Red Blood Cell Count 4.37 M/mm3 (4.30-5.90); White Blood Cell Count 12.93 K/mm3 (4.00-11.30)
[2023-01-04 03:40] LABS: Base Excess Venous 3.2 mmol/L; Bicarbonate Venous 26.4 mmol/L (24.0-30.0); PCO2 Venous 48.4 mmHg (38-42); pH Blood Venous 7.38 (7.34-7.37)
[2023-01-04 03:59] LABS: Albumin, Blood 2.2 g/dL (3.4-5.0); Albumin/Globulin Ratio 0.5 (0.8-1.8); Bilirubin, Total 0.3 mg/dL (0.1-1.0); Bun/Creatinine Ratio 37.1 (12.0-20.0); Calcium, Blood 8.8 mg/dL (8.5-10.1); Creatinine, Blood 0.59 mg/dL (0.60-1.20); Globulin, Blood 4.7 g/dL (2.2-4.0); Potassium, Blood 4.1 mmol/L (3.5-5.5); Total Protein, Blood 6.9 g/dL (6.4-8.2)
--- NOTE | 2023-01-04 06:18 | NUR ---
SUMMARY NEURO/PSYCH/MOBILITY: PRECEDEX TITRATED DOWN TO SB THROUGHOUT SHIFT. PT HAD CIWA SCORE OF 14, MEDICATED PER EMAR. PT WILL NOD/SHAKE HEAD IN RESPONSE TO QUESTIONS. COOPERATIVE W/CARE BUT PULLING ON LINES WHEN RESTRAINTS OFF FOR REPOSITIONING. PT MOVES ALL EXTREMETIES AND SHIFT BODY IN BED. MAX ASSIST FOR ALL ADL'S. DENIES PAIN. RESP: HIGH FLOW THERAPY 02 60L/MIN @60% O2. PT HAS EPISODES OF COUGHING/WHEEZING AND WILL DESAT INTO THE 80'S. RR 20-40'S, SPO2 88-90'S. DEEP ORAL SUCTIONING SMALL AMOUNTS OF THICK VAZQUEZ/BLOODY SECRETIONS. CARDIAC: CONTINUOUS CARDIAC MONITORING. AMIODARONE DC'D @0600. NSR 60-70'S, SBP STABLE, MAP >65. PULSES STRONG, NO EDEMA. GI: PT NPO AND ASPIRATION RISK. NO BM THIS SHIFT. DENIES NAUSEA. : PT HAD 2 LARGE VOIDS. ATTENDS CHANGED. SKIN: ASSESSMENT REMAINS UNCHANGED. MEPILEX ON COCCYX. IV ACCESS: 20GA BIA, 20GA LAC, 20GA RFA.
--- NOTE | 2023-01-04 08:30 | NUR ---
ASSUMED CARE / DR SOL: REPORT RECEIVED FROM PHOEBE Milna RN. ASSUMED CARE OF THIS PT AT APPROX 0700. ON ASSESSMENT, THE PT IS SOMNOLENT & DIFFICULT TO WAKE. HE AWAKENS BRIEFLY TO STERNAL RUB & MAKES EYE CONTACT BEFORE FALLING BACK ASLEEP. SEE CIWA. BILAT SOFT WRIST RESTRAINTS REMAIN IN PLACE FOR THIS PT HE CONTINUES TO PULL AT VITAL LINES/ TUBES & ATTEMPT TO GET OOB UNSAFELY. LS ARE COARSE T/O, DIM ON LEFT SIDE. PT ON AIRVO W/ SETTINGS: 60 L/MIN & 60% FIO2, O2 SATS > 92% ON AVG. PT HAS FREQUENT COUGH THAT IS CONGESTED & WHEEZING, MOD AMNTS THICK VAZQUEZ SPUTUM SUCTIONED FROM BACK OF MOUTH W/ ADRIANA. MONITOR SHOWS SR W/ HR 70-80s, BP STABLE. HTN W/ INCREASED AGITATION, IMPROVED AT REST. PT NPO R/T AMS & RESPIRATORY DISTRESS. INCONTINENT OF URINE W/ ATTENDS IN PLACE. SKIN OVERALL FRAGILE, INTACT. Q2H REPOSITIONING TO MAINTAIN SKIN INTEGRITY. DR SOL AT BEDSIDE THIS AM TO EVAL PT. HE HAS CONTACTED THE PT's AT THIS TIME & PROVIDED HER W/ AN UPDATE. THE PT WILL LIKELY NEED A BRONCH AT SOME POINT DURING ADMISSION, BUT THERE ARE NO PLANS FOR THIS TODAY. NO CHANGES AT THIS TIME. WILL CONTINUE TO MONITOR & UPDATE NEEDED.
--- NOTE | 2023-01-04 15:45 | NUR ---
UPDATE: DR SOL HAS BEEN AT BEDSIDE TO SPEAK W/ THIS PT's & SHOW HER HIS IMAGING RESULTS THAT THEY HAD DISCUSSED THIS AM. THE STS THAT SHE IS FEELING OVERWHELMED AFTER THEIR CONVERSATION. THIS RN HAS OFFERED SUPPORT & NOTIFIED PALLIATIVE CARE RN, JILLIAN, WELL CHAPLAIN FLY. THEY HAVE COME TO BEDSIDE TO OFFER SUPPORT TO ALE, THE PT's .
--- NOTE | 2023-01-04 16:53 | NUR ---
Called by Pt's primary RN Brianna reporting spouse just spoke with Dr Dykes regarding potential cancer diagnosis. Spouse may benefit from supportive visit. Pt resting in bed with his eyes closed. Pt appears anxious as evidenced by tossing and turning of head and extremities. Brianna in to offer medication. Offered supportive visit for spouse Leticia. Offered therapeutic listening as Leticia expresses concerns regarding being financialy dependent of Pt's income. Listened as Leticia reports just finishing radiation treatment for her second bout of breast cancer. Continued therapeutic listening and validated concerns. Leticia expresses appreciation and is agreeable to continued PC visits. Palliative Care will remain available
--- NOTE | 2023-01-04 17:03 | NUR ---
"Spiritual Care | Nurse referral Pt. is displaying evidence of active de-tox, and is not responsive. Spouse is present and was meeting with Nurse Tomas from Palliative Care. Spouse displayed evidence of anxiety over the implications of the Pts. diagnosis. Listen with empathy and a calming presence. Facilitated a life review of both Pt. and spouse. Established rapport. Spouse displayed evidence of increased trust. After some time the Spouse verbalized gratitude for the spiritual care visit."
--- NOTE | 2023-01-04 18:03 | NUR ---
SHIFT SUMMARY: NO ACUTE CHANGES SINCE PRIOR UPDATES. PT REMAINS ORIENTED ONLY TO SELF. IS OTHERWISE AGITATED & NOT REDIRECTABLE. CIWA SCORES 15-17 THIS SHIFT W/ PRN ATIVAN PER EMAR. PT BECOMES INCREASINGLY AGITATED W/ CARE MEASURES. PRECEDEX CONTINUES INFUSING AT 0.5 MCG/KG/HR. VSS. LS COARSE T/O, DIM ON LEFT SIDE. CONGESTED, WHEEZING COUGH NOTED REGULARLY T/O SHIFT. MOD AMNTS THICK VAZQUEZ SPUTUM SUCTIONED FROM BACK OF PT'S THROAT W/ ADRIANA. PT ON AIRVO W/ SETTINGS: 60 L/MIN & 60% FIO2. MONITOR SHOWS SR W/ HR 70-80s, BP STABLE. HTN W/ INCREASED AGITATION, IMPROVES WHEN CALM. NPO R/T RESPIRATORY STATUS & AMS. INCONTINENT OF BLADDER W/ ATTENDS IN PLACE. SKIN CONDITION OVERALL FRAGILE, INTACT. Q2H REPOSITIONING TO MAINTAIN SKIN INTEGRITY. WILL CONTINUE TO MONITOR & REPORT OFF TO ONCOMING RN.
--- NOTE | 2023-01-04 20:00 | NUR ---
ASSUMED CARE OF PT AT 1900. REPORT RECEIVED AT BEDSIDE. PT PRESENTS IN BED. ALERT. PRECEDEX AT 0.5 MCG'S/KG/HOUR SECONDARY TO ETOH WITHDRAWALS. PT HAS MANAGED TO MOVE HIS HEAD ABOUT IN A WAY TO GET AIRVO PILLOW CANNULA OUT OF HIS NOSE. PT DOES DESATURATE TO 85 PERCENT. DOES HAVE MOIST COUGH THAT HE IS NOT ABLE TO EXPECTORATE. WILL REIVEW CHART AND PLAN OF CARE FOR THIS PT.
--- NOTE | 2023-01-04 23:53 | NUR ---
HAVE USED RHONDAUER TO DO DEEP ORAL SUCTION. PT DOES NOT DEMONSTRATE MUCH A GAG REFLEX WITH THIS. PT SOMEWHAT RESISTANT TO TURNING IN BED. REMAINS WITH SOFT WRIST RESTRAINTS SECONDARY TO CONFUSION AND TO PROTECT VITAL LINES. CONTINUE WITH Q 2 HOUR TURNS TO PROTECT SKIN INTEGRITY. ALSO WITH ATTENDS CHECKS AT TIMES OF TURNS WELL PRN.
[2023-01-05 05:29] LABS: Base Excess Venous 6.4 mmol/L; Bicarbonate Venous 29.5 mmol/L (24.0-30.0); PCO2 Venous 45.9 mmHg (38-42); pH Blood Venous 7.43 (7.34-7.37)
[2023-01-05 05:36] LABS: BASOPHILS ABSOLUTE AUTO 0.02 K/mm3 (0.00-0.23); BASOPHILS PERCENT AUTO 0 % (0-2); EOSINOPHILS ABSOLUTE AUTO 0.06 K/mm3 (0.00-0.68); EOSINOPHILS PERCENT AUTO 1 % (0-6); Hematocrit 34.2 % (37.0-53.0); Hemoglobin 11.3 g/dL (13.5-17.5); IMMATURE GRAN ABSOLUTE AUTO 0.11 K/mm3 (0.00-0.10); IMMATURE GRAN PERCENT AUTO 1 % (0-1); LYMPHOCYTES ABSOLUTE AUTO 0.43 K/mm3 (0.84-5.20); LYMPHOCYTES PERCENT AUTO 4 % (21-46); MONOCYTES ABSOLUTE AUTO 1.44 K/mm3 (0.16-1.47); MONOCYTES PERCENT AUTO 14 % (4-13); Mean Corpuscular HGB 29.7 pg (26.0-34.0); Mean Corpuscular Volume 90 fL (80-100); NEUTROPHILS ABSOLUTE AUTO 8.48 K/mm3 (1.96-9.15); NEUTROPHILS PERCENT AUTO 80 % (41-73); Platelet Count 343 K/mm3 (150-400); RDW Coefficient Variation 13.2 % (11.7-14.2); RDW Standard Deviation 43.2 fL (35.1-46.3); Red Blood Cell Count 3.81 M/mm3 (4.30-5.90); White Blood Cell Count 10.54 K/mm3 (4.00-11.30)
--- NOTE | 2023-01-05 06:30 | NUR ---
PT HAS REQUIRED INCREASE PRECEDEX DRIP TO 0.7 MCG'S/KG/HOUR. HAVE MEDICATED PT WITH ATIVAN FOR ESCALATING CIWA SCORING. PT BECOMES VERY RESISTENT TO CARE QUICKLY. WILL BE ASLEEP, AND SUDDENLY AWAKE AND TRYING TO GET HIS HIGH FLOW CANNULA OFF BY SHAKING HIS HEAD. IS ABLE TO SOME EXTENT ACHIEVE THIS GOAL. CONDOM CATHETER REMAINS IN PLACE. WILL CONTINUE TO MONITOR PT, AND WILL REPORT OFF TO ONCOMING RN.
[2023-01-05 06:32] LABS: Albumin, Blood 1.9 g/dL (3.4-5.0); Albumin/Globulin Ratio 0.5 (0.8-1.8); Bilirubin, Total 0.2 mg/dL (0.1-1.0); Bun/Creatinine Ratio 24.1 (12.0-20.0); Calcium, Blood 8.3 mg/dL (8.5-10.1); Creatinine, Blood 0.54 mg/dL (0.60-1.20); Potassium, Blood 3.9 mmol/L (3.5-5.5); Total Protein, Blood 5.9 g/dL (6.4-8.2)
--- NOTE | 2023-01-05 08:01 | NUR ---
ASSUMED CARE BEDSIDE REPORT FROM AMANUEL ORTEGA AT 0700. PT LAYING IN BED. PT RAISES EYEBROWS TO VERBAL STIMULI. DOES NOT OPEN EYES, DOES NOT FOLLOW COMMANDS. NO WORDS, MOANS ONLY. WITHDRAWS AND GRIMACES TO PAIN. MAEW. BILATERAL WRIST RESTRAINTS TO PROTECT LINES. PRECEDEX GTT INFUSING FOR SEDATION. ATIVAN PRN. SB ON MONITOR, RATE 55-65. HTN NOTED. AIRVO 60L/65%, O2 SATS >92%. MOIST, NON PRODUCTIVE COUGH. LUNGS COARSE c RHONCI ON RIGHT SIDE. ABD FLAT, SOFT, NON TENDER. BT X 4. CONDOM CATH IN PLACE FOR INCONTIENCE. WILL CONTINUE TO MONITOR.
--- NOTE | 2023-01-05 12:26 | NUR ---
Pt resting in bed with his eyes closed. Pt appears comfortable at this time with no S/S of distress at this time. Reviewed plan of care with Pt's Primary RN Tere. Pt requiring precedex but has been decreased since security shift supervisor. No family at bedside at this time. Palliative Care will F/U for supportive visit when family is at bedside.
--- NOTE | 2023-01-05 16:24 | NUR ---
Received call from Pt's primary RN Tere reporting Pt's spouse has arrived. Arrived to Pt's room. Pt resting in bed with his eyes closed and on AIRVO. Pt appears comfortable at this time. Spouse Leticia at bedside. Engaged in therapeutic discussion regarding Pt's code status wishes. Educated on life sustaining treaments including risk and potential consequences to CPR/Intubation. Leticia reports Pt would not want CPR. She reports Pt told her that he would be ok with intubation just long enough for his son to come and say his goodbyes. She reports Pt would also be agreeable to defibrillation. Confirmed with Leticia that Pt's wishes are Limited Code providing intubation and defibrillation only. Leticia reports plan to stay home tomorrow for some self care. Spoke with Dr Shrestha and discussed case. Placed Limtited Code in [place] to provide intubation and defibrillation only per V/O from Dr Shrestha. Palliative Care will remain available
--- NOTE | 2023-01-05 17:56 | NUR ---
SHIFT SUMMARY NO ACUTE CHANGES THIS SHIFT. PRECEDEX PLACED ON STANDBY. NEURO STATUS UNCHANGED, RESPONSIVE TO PAINFUL STIMULI, WITHDRAWS FROM CARE. DOES NOT FOLLOW COMMANDS. INCOMPREHENSIBLE SOUNDS. LUNGS COARSE, MOIST COUGH, NON PRODUCTIVE. AIRVO 60L/55%, SATS >94%. SR, RATE 70-80'S. HTN NOTED. DOBHOFF PLACED FOR MEDS AND NUTRITION, RIGHT NARE, 70 CM. TUBE FEEDS AT 25ML/HR, GOAL 80 c 200 ML FLUSH q4 HR. CONDOM CATH REMAINS IN PLACE, 525 ML OUT THIS SHIFT. CODE STATUS CHANGED TO NO CPR, INTUBATION OK. WILL CONTINUE TO MONITOR UNTIL REPORT TO ONCOMING NURSE.
--- NOTE | 2023-01-05 19:20 | NUR ---
ASSUMED CARE OF PT AT 1900. REPORT RECEIVED AT BEDSIDE. PT PRESENTS IN BED. DYSPNEIC. HAS MOIST COUGH THAT HE IS NOT ABLE TO CLEAR. AIRVO ON AT 60 LITERS WITH FIO2 55 PERCENT. O2 SATURATIONS MAINTAIN > 90 PERCENT. PT DOES NOT MAKE ANY VERBAL EFFORT TO QUESTIONS. WILL REVIEW CHART AND PLAN OF CARE FOR THIS PT.
--- NOTE | 2023-01-05 23:00 | NUR ---
HAVE MEDICATED PT WITH 25 MCG'S FENTANYL FOR INCREASE IN AGITATION AND PT'S ATTEMPTS TO PULL OFF HIS OXYGEN. THIS DOSE CALMS PT AND HE BECOMES MORE CALM. ANYTIME PT IS ABLE TO GET HIS OXYGEN OFF, HIS SATURATIONS DROP TO 78-85 PERCENT. PT HAS SOMEWHAT SLOW RECOVER WITH AIRVO BACK TO 100 PERCENT FIO2. PT CURRENTLY AT 60 L/M FLOW WITH 55 PERCENT FIO2. MAINTAINS SATURATIONS > 90 PERCENT LONG HE DOES NOT WORK OFF HIS CANNULA.
--- NOTE | 2023-01-06 03:47 | NUR ---
PT MEDICATED AGAIN WITH 25 MCG'S FENTANYL WITH GOOD RESULTS. HAVE MEDICATED PT WITH 2 MG LORAZEPAM FOR INCREASE AGITATION WELL. THIS TOO AFFECTIVE. PT HAS TURNED HIMSELF IN BED ON HIS OWN. HAVE ASSISTED WITH TURNS WHEN PT HAS NOT MADE A POSITION CHANGE. WILL CONTINUE TO MONITOR PT.
[2023-01-06 05:09] LABS: BASOPHILS ABSOLUTE AUTO 0.03 K/mm3 (0.00-0.23); BASOPHILS PERCENT AUTO 0 % (0-2); EOSINOPHILS ABSOLUTE AUTO 0.38 K/mm3 (0.00-0.68); EOSINOPHILS PERCENT AUTO 3 % (0-6); Hematocrit 34.7 % (37.0-53.0); Hemoglobin 11.7 g/dL (13.5-17.5); IMMATURE GRAN PERCENT AUTO 2 % (0-1); LYMPHOCYTES ABSOLUTE AUTO 0.73 K/mm3 (0.84-5.20); LYMPHOCYTES PERCENT AUTO 7 % (21-46); MONOCYTES ABSOLUTE AUTO 1.64 K/mm3 (0.16-1.47); MONOCYTES PERCENT AUTO 15 % (4-13); Mean Corpuscular HGB 29.8 pg (26.0-34.0); Mean Corpuscular HGB Conc 33.7 g/dL (31.5-36.5); Mean Corpuscular Volume 89 fL (80-100); Mean Platelet Volume 9.5 fL (9.1-12.4); NEUTROPHILS ABSOLUTE AUTO 8.17 K/mm3 (1.96-9.15); NEUTROPHILS PERCENT AUTO 73 % (41-73); Platelet Count 391 K/mm3 (150-400); RDW Coefficient Variation 13.2 % (11.7-14.2); RDW Standard Deviation 42.6 fL (35.1-46.3); Red Blood Cell Count 3.92 M/mm3 (4.30-5.90); White Blood Cell Count 11.15 K/mm3 (4.00-11.30)
[2023-01-06 05:36] LABS: Bun/Creatinine Ratio 21.4 (12.0-20.0); Calcium, Blood 8.4 mg/dL (8.5-10.1); Creatinine, Blood 0.56 mg/dL (0.60-1.20); Phosphorus, Blood 2.3 mg/dL (2.5-4.9); Potassium, Blood 3.7 mmol/L (3.5-5.5)
--- NOTE | 2023-01-06 09:07 | NUR ---
ASSUMED CARE BEDSIDE REPORT FROM AMANUEL ORTEGA AT 0700. PT RESTING IN BED. SOMULENT. RESPONSES TO PAINFUL STIMULI. DOES NOT FOLLOW COMMANDS. OCCASIONALLY MOANS, NO WORDS. LUNGS DIM ON RIGHT, RHONCHI ON LEFT. NON PRODUCTIVE COUGH. SR, RATE 60-70. BP STABLE. PIVOT INFUSING AT 45 ML/HR, GOAL 80 ML, FLUSH 200 ML q4 HR. DOBHOFF TO RIGHT NARE, 70 CM. ABD FLAT, SOFT, NON TENDER. BT X 4. CONDOM CATH IN PLACE. RESTRAINTS REMOVED THIS AM. WILL CONTINUE TO MONITOR.
--- NOTE | 2023-01-06 14:11 | NUR ---
Pt resting in bed with his eyes closed. Pt left undisturbed at this time. Spoke with Pt's Primary RN Tere. Reviewed plan of care and discussed case. Slight increase in O2 requirements. Pt no longer on Precedex and at this time Pt is not clearing. No plan for spouse to visit today as she is having a self care day. Palliative Care will remain available for supportive and therpaeutic visits.
--- NOTE | 2023-01-06 17:58 | NUR ---
SHIFT SUMMARY NO ACUTE CHANGES THIS SHIFT. PRECEDEX REMAINED OFF. ATIVAN PRN FOR AGITATION. PT NODS HEAD TO YES NO QUESTIONS. DOES NOT FOLLOW COMMANDS. LUNGS REMAIN DIM AND COARSE. OCCASIONAL HARSH NON PRODUCTIVE COUGH. AIRVO 60L/60%. SR, RATE 80-100. BP STABLE. TUBE FEEDS AT GOAL, 40 ML/HR c 200 ML FLUSH q4. CONDOM CATH REPLACED THIS SHIFT, 900 ML CLEAR YELLOW URINE OUT. WILL CONTINUE TO MONITOR UNTIL REPORT TO ONCOMING NURSE.
--- NOTE | 2023-01-06 19:40 | NUR ---
ASSUMED CARE OF PT AT 1900. PT PRESENTS IN BED. NO RESTAINTS AT THIS TIME. WILL MAKE EYE CONTACT DURING GREETING. DOES PUT HANDS UP TOWARDS HIS FACE. REMINDED NOT TO PULL ON DOBHOFF AND AIRVO. PT MOVES AROUND IN BED. HAS HIS LEGS UP AGAINST RAILING AND TRIES TO LAY SIDEWAYS IN BED. WILL NEED CLOSELY MONITOR PT FOR SAFETY. MAINTAINING O2 SATURATIONS > 90 PERCENT. WILL REVIEW CHART AND PLAN OF CARE FOR THIS PT.
--- NOTE | 2023-01-06 23:14 | NUR ---
USING YANKAEUR SUCTION, WAS ABLE TO ASSIST PT TO CLEAR SECRETIONS THAT HE WAS ABLE TO COUGH. HAVE DECREASED FIO2 DOWN. PT MEDICATED WITH 25 MCG FENTANYL FOR SOME S/S DISCOMFORT. THIS HAS BEEN AFFECTIVE. PT DOES MAKE GOOD EYE CONTACT. HAVE NOTED SOME IMPROVEMENT IN COGNITION FROM PREVIOUS NOCS CARING FOR THIS PT. WILL CONTINUE TO MONITOR.
[2023-01-07 04:49] LABS: BASOPHILS ABSOLUTE AUTO 0.02 K/mm3 (0.00-0.23); BASOPHILS PERCENT AUTO 0 % (0-2); EOSINOPHILS ABSOLUTE AUTO 0.51 K/mm3 (0.00-0.68); EOSINOPHILS PERCENT AUTO 5 % (0-6); Hematocrit 35.9 % (37.0-53.0); Hemoglobin 11.8 g/dL (13.5-17.5); IMMATURE GRAN ABSOLUTE AUTO 0.18 K/mm3 (0.00-0.10); IMMATURE GRAN PERCENT AUTO 2 % (0-1); LYMPHOCYTES ABSOLUTE AUTO 0.69 K/mm3 (0.84-5.20); LYMPHOCYTES PERCENT AUTO 6 % (21-46); MONOCYTES ABSOLUTE AUTO 1.61 K/mm3 (0.16-1.47); MONOCYTES PERCENT AUTO 14 % (4-13); Mean Corpuscular HGB 28.9 pg (26.0-34.0); Mean Corpuscular HGB Conc 32.9 g/dL (31.5-36.5); Mean Corpuscular Volume 88 fL (80-100); Mean Platelet Volume 9.5 fL (9.1-12.4); NEUTROPHILS ABSOLUTE AUTO 8.26 K/mm3 (1.96-9.15); NEUTROPHILS PERCENT AUTO 73 % (41-73); Platelet Count 473 K/mm3 (150-400); RDW Coefficient Variation 13.2 % (11.7-14.2); RDW Standard Deviation 42.1 fL (35.1-46.3); Red Blood Cell Count 4.08 M/mm3 (4.30-5.90); White Blood Cell Count 11.27 K/mm3 (4.00-11.30)
[2023-01-07 05:06] LABS: Bun/Creatinine Ratio 23.3 (12.0-20.0); Calcium, Blood 8.4 mg/dL (8.5-10.1); Creatinine, Blood 0.52 mg/dL (0.60-1.20); Potassium, Blood 3.6 mmol/L (3.5-5.5)
--- NOTE | 2023-01-07 06:50 | NUR ---
FULL BEDBATH DONE ON THIS PT. CONDOM CATHETER UNFORTUNATELY HAD CAME OFF AND PT WAS INCONTINENT TO URINE. PT TOLERATED BEDBATH FAIR. HAVE NEEDED TO SUCTION PT WITH YANKEAUR WITH RETURN OF SOME BROWNISH COLORED SECRETIONS. NOTED LESS BLOODY SECRETIONS NOTED. PT HAS BEEN MEDICATED WITH ATIVAN 2 MG AND WITH 25 MCG'S FENTANYL SEVERAL TIMES WHEN PT'S BEGINS TO ESCALATE AND REMOVE HIS AIRVO. PT HAS BEEN MORE INTERACTIVE THIS NIGHT. HAD SPOKEN TO PT'S PER PHONE CALL IN EVENING TIME. UPDATE GIVEN. SHE ASKED QUESTIONS ABOUT HOW PT IS DOING, ANSWERED THOSE QUESTIONS. WILL CONTINUE TO MONITOR PT, AND WILL REPORT OFF TO ONCOMING RN.
--- NOTE | 2023-01-07 18:53 | NUR ---
END OF SHIFT SUMMARY: NEURO: DROWSY ALL SHIFT, RESTLESS AND MOSTLY NON-VERBAL. MOANS AT TIMES AND OCCASIONALLY WILL ANSWER "YES" OR "NO". DOES NOT CONSISTENTLY FOLLOW COMMANDS. HEAD CT ORDERED AND COMPLETED. DR. VAZQUEZ AWARE. CARDIAC: SR, BP ELEVATED AT TIMES WHEN ANXIOUS/RESTLESS. RESP: AIRVO 60L/55%. PT PULLED NASAL PRONGS OUT SEVERAL TIMES AND DESATURATED TO THE 80'S. O2 SAT RECOVERED QUICKLY WHEN PLACED BACK ON AIRVO. LUNGS CLEAR TO COARSE, DIMISHED IN BILATERAL BASES. COUGH COARSE, DIFFICULT TO SUCTION DUE TO PT'S RESTLESSNESS. GI: BS HYPOACTIVE, NO BM THIS SHIFT. PT PULLED DOBHOFF, UNABLE TO REPLACE AFTER 2 ATTEMPTS. OK TO LEAVE OUT PER DR. VAZQUEZ. CLINIMIX STARTED AT 90ML/HR. : REMOVED CONDOM CATH, PT TOO RESTLESS. BRIEF IN PLACE, PT HAD SEVERAL INCONTINENT EPISODES. SKIN: UNCHANGED. IV: PG TO RIGHT UPPER ARM, INFUSING. PIV TO LEFT ARM, SL. CALLED FOR UPDATE FROM RN THIS AM, CONTACTED BY DR. VAZQUEZ THIS AFTERNOON TO UPDATE HER ON POC AND PENDING CT SCAN. SHE WILL ATTEMPT TO VISIT TOMORROW WEATHER DEPENDENT.
--- NOTE | 2023-01-07 19:48 | NUR ---
ASSUMED CARE. PT AO TO SELF, MUMBLED SPEECH. ABLE TO MAKE OUT A FEW WORDS. SPEECH IS LIMITED TO SIMPLE PHRASES. DOES FOLLOW DIRECTIONS AT TIMES. PUPILS SLUGGLISH. PULPWOOD CUTTER WEAK BILATERALLY. LS RHONCI IN UPPER LOBES THAT WILL CLEAR AT TIMES WHEN HE COUGHS. THICK WHITE SECRETIONS. ORAL CARE PROVIDED. CLINIMIX INFUSING AT 90ML/HR. IV IN LEFT UPPER ARM DC'D, REDNESS NOTED AT SITE AND WAS LEAKING WHEN FLUSHED. PT ANXIOUS ASKING FOR A BEER. ASKED ABOUT , INFORMED HIM SHE IS AT HOME. ATTENDS CHANGED DUE TO SATURATION.
--- NOTE | 2023-01-07 22:08 | NUR ---
PT IS IN ROOM MOANING TALKING TO SELF IN ROOM. OCCATIONALLY WILL COUGH AND NEED SUCTIONED. ATTEMPTS TO SIT UP IN BED, NEEDING REPOSITIONING OFTEN. GAVE ATIVAN TO HELP CALM HIM HE IS HULLUCINATING AND GRABBING THINGS OUT OF THE AIR.
--- NOTE | 2023-01-07 23:39 | NUR ---
DONALD IS VERY AGGITATED, PULLING OFF HIS AIRVO CONTINUOUSLY. TRYING TO CRAWL OUT OF BED. MOANING AND COUGHING BUT HAS NOT GOTTEN ANY OTHER SECRETIONS UP. AUDIABLE COARSE LS NOTED WHEN WALKING INTO THE ROOM. REPOSITIONED AGAIN UP IN BED. STARTED PRECEDEX.
--- NOTE | 2023-01-08 00:05 | NUR ---
RT PLACED PATIENT ON HI-FLOW NC ON 8L HAD TO INCREASE TO 10L TO MAINTAIN SATS. PATIENT JUST NOW STARTING TO CALM DOWN AND RELAX NOT ATTEMPTING TO GET OUT OF BED AND IS KEEPING OXYGEN ON.
--- NOTE | 2023-01-08 02:14 | NUR ---
PT JUST WOKE UP WITH CLEAR SPEECH, FORMING FULL SENTENCES. HE ASKED SEVERAL QUESTIONS ABOUT HOW HE GOT HER, WHERE HIS IS, HOW LONG HE HAS BEEN HERE. ABLE TO USE THE URINAL AND ASK FOR WARM BLANKET. HE CONTINUES TO BE ON PRECEDEX AT 0.4MCQ.
[2023-01-08 03:30] LABS: BASOPHILS ABSOLUTE AUTO 0.02 K/mm3 (0.00-0.23); BASOPHILS PERCENT AUTO 0 % (0-2); EOSINOPHILS ABSOLUTE AUTO 0.31 K/mm3 (0.00-0.68); EOSINOPHILS PERCENT AUTO 3 % (0-6); Hematocrit 33.4 % (37.0-53.0); Hemoglobin 10.9 g/dL (13.5-17.5); IMMATURE GRAN PERCENT AUTO 1 % (0-1); LYMPHOCYTES ABSOLUTE AUTO 0.76 K/mm3 (0.84-5.20); LYMPHOCYTES PERCENT AUTO 6 % (21-46); MONOCYTES ABSOLUTE AUTO 1.43 K/mm3 (0.16-1.47); MONOCYTES PERCENT AUTO 12 % (4-13); Mean Corpuscular HGB Conc 32.6 g/dL (31.5-36.5); Mean Corpuscular Volume 89 fL (80-100); Mean Platelet Volume 9.6 fL (9.1-12.4); NEUTROPHILS ABSOLUTE AUTO 9.24 K/mm3 (1.96-9.15); NEUTROPHILS PERCENT AUTO 78 % (41-73); Platelet Count 466 K/mm3 (150-400); RDW Coefficient Variation 13.2 % (11.7-14.2); Red Blood Cell Count 3.76 M/mm3 (4.30-5.90); White Blood Cell Count 11.86 K/mm3 (4.00-11.30)
[2023-01-08 03:58] LABS: Anion Gap 4 mmol/L (6-16); Blood Urea Nitrogen 14 mg/dL (8-24); CO2, Blood 32 mmol/L (21-32); Calcium, Blood 8.5 mg/dL (8.5-10.1); Chloride, Blood 103 mmol/L (98-108); Glomerular Filtration Rate 109 (60-); Glucose, Blood 113 mg/dL (70-99); Magnesium, Blood 1.9 mg/dL (1.6-2.4); Phosphorus, Blood 3.7 mg/dL (2.5-4.9); Potassium, Blood 3.9 mmol/L (3.5-5.5); Sodium, Blood 139 mmol/L (136-145); Triglycerides 79 mg/dL (30-160)
--- NOTE | 2023-01-08 04:38 | NUR ---
DONALD WOKE BACK UP, COUGHING CONTINUOUSLY, HE WAS ABLE TO COUGH UP A SMALL CAST THAT I WAS ABLE TO USE THE SUCTION TO OBTAIN. SECRETIONS HAVE TINGE OF PINK IN THEM NOW. HE'S STILL SLIGHTLY CONFUSED BUT ABLE TO FORM SENTENCES STILL. CONTINUOUS TO BE ON 10L HI-FLOW NC.
--- NOTE | 2023-01-08 05:12 | NUR ---
SHIFT SUMMARY: INCREASE IN AGGITATION AND CONFUSION. WOULD NOT KEEP AIRVO ON AND SEVERAL ATTEMPTS TO GET OUT OF BED. GARBLED SPEECH WITH MOANING OFF AND ON. WAS GIVEN 4 MG OF ATIVAN WHICH DID NOT CALM HIS AGGITATION, THEREFORE PRECEDEX WAS STARTED AT 0.4MCQ. STARTED TO BECOME MORE CLEAR AROUND 3AM, ASKING FULL CLEAR SENTENCES AND HAD UNDERSTANDING. ALSO FOLLOWED DIRECTION WELL. CURRENTLY ON 10L HI-FLOW NC TO MAINTAIN SATS >90%. CONTINUES TO PULL OFF THE CANNULA CAUSING DESATURATION TO THE 80'S. DOES RECOVERY QUICKLY WHEN O2 IS PLACED BACK ON. LS COARSE, RHONCI WITH INCREASE IN SECREATIONS AND HACKING COUGH. ATTEMPT TO SUCTION OFTEN OBTAINING SMALL PINK TINGE SECRETIONS, AND 1 SMALL CAST. BT HYPOACTIVE, ORAL CARE DOWN FOR DRYNESS, NPO AND UNABLE TO GIVE PO MEDICATIONS. SPEECH EVAL PENDING. CLINIMIX CONTINUES AT 90ML/HR. SEVERAL INCONTIENT VOIDS WITH FULL SATURATION OF BREIFS T/O THE NIGHT. BRUISING TO BUE FROM IV'S GONE BAD. REMOVED IV IN LEFT UPPER ARM DUE TO REDNESS AND LEAKAGE. SINUS T/O NIGHT, RATE MAINTAINED 80-100'S. BP STABLE, OCCATIONAL HIGH'S DUE TO RESTLESSNESS BUT WHEN CALM IS WNL.
--- NOTE | 2023-01-08 17:24 | NUR ---
Brief supportive visit this afternoon. Spoke with Dr Alvarez prior to visiting with spouse. Dr Alvarez reports just speaking with spouse regarding prognosis. Pt resting in bed with his eyes closed. Spoke with spouse Leticia outside of Pt's room. Offered therapeutic listening as Leticia reports plan to speak with Pt's son marietta to suggest for him to come visit Pt. Continued supportive visit. Palliative Care will remain available
--- NOTE | 2023-01-08 18:26 | NUR ---
SUMMARY PT WAS A/O TO PERSON AND PLACE THIS AM. THE DAY WENT ON HE BECAME MORE AGITATED. TRIED TO KEEP PRECEDEX OFF BUT THIS AFTERNOON HE BECAME SO RESTLESS THAT IT HAD TO BE TURNED BACK ON. PT WOULD SCOOT TO END OF BED, VERY IMPULSIVE, AND DIFFICULT TO REDIRECT. GOT PT OOB TO CHAIR BUT ONLY LASTED ABOUT A HALF HOUR BEFORE HE NEARLY CATAPULTED HIMSELF OUT OF THE CHAIR. PT REQUIRING 1:1 SITTER TO KEEP O2 ON AND KEEP HIM IN BED WITHOUT RESTRAINTS. IN THIS EVENING AND DR. VAZQUEZ UPDATED HER.
--- NOTE | 2023-01-08 19:30 | NUR ---
ASSUMED CARE. AOX2, ABLE TO STATE PLACE, SELF BUT STILL DOES NOT KNOW DATE, AND YEAR. 1:1 SITTER CURRENTLY AT BEDSIDE. PT HAS BEEN COOPERATIVE WITH HER. PRECEDEX AT 1 MCQ. DENIES PAIN OR DISCOMFORT. HE JUST GOT TURNED ON SIDE. ORAL CARE PROVIDED. ATTENDS DRY CURRENTLY, DENIES NEED TO USE URINAL. LS COARSE, OCCATIONAL NON-PRODUCTIVE COUGH, SUCTION AT BEDSIDE.
--- NOTE | 2023-01-09 | NUR ---
PT IS SLEEPING COMFORTABLY. 1:1 SITTER WENT HOME. BED ALARM IS ON. NO CHANGE IN PRECEDEX. ATTENDS CHANGED.
[2023-01-09 05:16] LABS: Bun/Creatinine Ratio 29.2 (12.0-20.0); Calcium, Blood 8.1 mg/dL (8.5-10.1); Creatinine, Blood 0.51 mg/dL (0.60-1.20); Phosphorus, Blood 4.2 mg/dL (2.5-4.9); Potassium, Blood 4.4 mmol/L (3.5-5.5)
[2023-01-09 05:23] LABS: BASOPHILS ABSOLUTE AUTO 0.05 K/mm3 (0.00-0.23); BASOPHILS PERCENT AUTO 0 % (0-2); EOSINOPHILS ABSOLUTE AUTO 0.67 K/mm3 (0.00-0.68); EOSINOPHILS PERCENT AUTO 6 % (0-6); Hematocrit 33.4 % (37.0-53.0); Hemoglobin 10.9 g/dL (13.5-17.5); IMMATURE GRAN ABSOLUTE AUTO 0.11 K/mm3 (0.00-0.10); IMMATURE GRAN PERCENT AUTO 1 % (0-1); LYMPHOCYTES PERCENT AUTO 6 % (21-46); MONOCYTES PERCENT AUTO 10 % (4-13); Mean Corpuscular HGB 28.8 pg (26.0-34.0); Mean Corpuscular HGB Conc 32.6 g/dL (31.5-36.5); Mean Corpuscular Volume 88 fL (80-100); NEUTROPHILS ABSOLUTE AUTO 8.85 K/mm3 (1.96-9.15); NEUTROPHILS PERCENT AUTO 77 % (41-73); RDW Coefficient Variation 12.9 % (11.7-14.2); RDW Standard Deviation 41.5 fL (35.1-46.3); Red Blood Cell Count 3.79 M/mm3 (4.30-5.90); White Blood Cell Count 11.58 K/mm3 (4.00-11.30)
[2023-01-09 06:21] LABS: Mean Platelet Volume 9.8 fL (9.1-12.4)
[2023-01-09 07:05] LABS: Platelet Count 464 K/mm3 (150-400)
--- NOTE | 2023-01-09 07:15 | NUR ---
SHIFT SUMMARY: NO ACUTE CHANGES THIS SHIFT. PRECEDEX REMAINED ON 1 MCQ UNTIL THIS AM WHEN PATIENT WOKE UP AND GOT VERY AGGITATED. HE WAS MAD HIS WAS NOT HERE AND EVEN CALLED HER TWICE. CALLED IN COMPLAINING THAT HE WAS CALLING HER. HE STARTED TO BANG ON THE BED AND YELL OUT. INCREASED THE PRECEDEX TO 1.4. MORE ALERT AND ORIENTED THIS AM THEN HE HAS BEEN BUT WAS INCREASE IN AGGITATION AND BEHAVIORS. LUNGS COARSE, MOIST COUGH, NON-PRODUCTIVE. REMAINED ON NC 7L ENTIRE SHIFT. VS REMAINED STABLE. CONTINUES TO BE INCONTIENT OF URINE, ATTENDS CHANGE PRN. CLINIMAX CONT TO INFUSE.
--- NOTE | 2023-01-09 18:19 | NUR ---
SUMMARY PT A/O TO SELF AND PLACE TODAY. ON PRECEDEX GTT AT 1.4MCG. PT IS MORE FOCUSED TODAY AND NOT RESTLESS. ABLE TO USE CALL LIGHT APPROPRIATELY AND ASKING ABOUT PLAN OF CARE. GOOD DEXTERITY AND ABLE TO MOVE SELF IN BED. MORE COOPERATIVE WITH ORAL CARE TODAY. O2 DEMANDS ARE DECREASING AND PT IS LEAVING O2 ON TODAY. NO OTHER CHANGES TODAY.
--- NOTE | 2023-01-09 23:07 | NUR ---
THEY WERE STARTING TO GET ANXIOUS AND ATTEMPTED TO GET OUT OF BED. THEY BEGUN DESATING INTO THE LOW 80'S. NURSE WAS NOTIFIED. STAYED IN ROOM TO CALM PT DOWN.
[2023-01-10 03:33] LABS: BASOPHILS ABSOLUTE AUTO 0.03 K/mm3 (0.00-0.23); BASOPHILS PERCENT AUTO 0 % (0-2); EOSINOPHILS ABSOLUTE AUTO 0.38 K/mm3 (0.00-0.68); EOSINOPHILS PERCENT AUTO 3 % (0-6); Hematocrit 34.9 % (37.0-53.0); Hemoglobin 11.6 g/dL (13.5-17.5); IMMATURE GRAN ABSOLUTE AUTO 0.06 K/mm3 (0.00-0.10); IMMATURE GRAN PERCENT AUTO 1 % (0-1); LYMPHOCYTES PERCENT AUTO 6 % (21-46); MONOCYTES ABSOLUTE AUTO 1.07 K/mm3 (0.16-1.47); MONOCYTES PERCENT AUTO 8 % (4-13); Mean Corpuscular HGB 29.3 pg (26.0-34.0); Mean Corpuscular HGB Conc 33.2 g/dL (31.5-36.5); Mean Corpuscular Volume 88 fL (80-100); Mean Platelet Volume 9.1 fL (9.1-12.4); NEUTROPHILS ABSOLUTE AUTO 10.44 K/mm3 (1.96-9.15); NEUTROPHILS PERCENT AUTO 82 % (41-73); Platelet Count 473 K/mm3 (150-400); RDW Coefficient Variation 12.6 % (11.7-14.2); RDW Standard Deviation 40.9 fL (35.1-46.3); Red Blood Cell Count 3.96 M/mm3 (4.30-5.90); White Blood Cell Count 12.68 K/mm3 (4.00-11.30)
[2023-01-10 03:49] LABS: Bun/Creatinine Ratio 38.2 (12.0-20.0); Creatinine, Blood 0.47 mg/dL (0.60-1.20); Magnesium, Blood 2.1 mg/dL (1.6-2.4); Phosphorus, Blood 3.5 mg/dL (2.5-4.9); Potassium, Blood 4.1 mmol/L (3.5-5.5)
[2023-01-10 03:57] LABS: Prothrombin Time Results 10.5 Sec (9.7-11.5)
--- NOTE | 2023-01-10 06:18 | NUR ---
PATIENT A&O 2-3 PERIODS OF CONFUSION/ANXIETY. CONTINUES ON 5L NC 90-98% CLINIMIX AND PRECEDEX INFUSING. CONDOM CATH IN PLACE.
--- NOTE | 2023-01-10 07:15 | NUR ---
ASSUMPTION OF CARE PT IS A&OX2. HE USES HIS CALL LIGHT AND PARTICIPATES IN CONVERSATION BUT HAS FLIGHTS OF IDEAS. HE IS RECEIVING PRECEDEX 1.0MCG/KG/HR AND CLINIMIX. HE IS ON 5L NC. LUNGS ARE DIMINISHED, COARSE ON R SIDE. PT C/O 10/10 HEAD PAIN, MEDICATED PER EMAR. NSR ON MONITOR WITH RATE IN 80S, BP STABLE. CONDOM CATH IN PLACE DRAINING TO GRAVITY. SEE SHIFT ASSESSMENT.
--- NOTE | 2023-01-10 13:00 | NUR ---
UPDATE PRECEDEX OFF SINCE 844. PT BECOMING MORE RESTLESS. HE WANTS TO TRANSITION FROM THE CHAIR TO BED FREQUENTLY. HE STS "I CAN'T SIT STILL". PT'S IV PULLED WHILE WRITHING IN BED. BED ALARM ON.
--- NOTE | 2023-01-10 14:00 | NUR ---
BIOPSY PT RECEIVING PRECEDEX 1.4MCG/KG/HR AND MEDICATED FOR PAIN BEFORE PROCEDURE. PT TOLERATED PROCEDURE AND XRAY WELL. PRECEDEX TITRATED DOWN TO 0.5MCG/KG/HR. PT CALM AND COOPERATIVE WITH CARE. HE DENIES PAIN AT THIS TIME AND APPEARS MORE COMFORTABLE. VSS. BED IN LOW POSITION, CALL LIGHT WITHIN REACH, AND BED ALARM ON.
--- NOTE | 2023-01-10 18:25 | NUR ---
SHIFT SUMMARY PT RECEIVING PRECEDEX 1.0MCG/KG/HR AND CLINIMIX. HE IS ALERT TO SELF AND FAMILY. HE HAS BEEN EITHER SITTING IN THE CHAIR OR THE BED THROUGHOUT THE DAY. HE IS A 1 PERSON ASSIST WITH THE GAIT BELT AND WALKER. PT RESTLESS AT TIMES. HE IS ON 6L NC. L LUNG BIOPSY DONE THIS AFTERNOON. HE HAD 700ML URINE FROM HIS CONDOM CATH THAT PT REMOVED AND 1 UNMEASURED INCONTINENT VOID. VSS THROUGHOUT SHIFT. HE IS CURRENTLY SITTING IN THE CHAIR WITH TAB ALARM ON AND CALL LIGHT WITHIN REACH. ALE NOTIFIED OF BIOPSY AND UPDATED.
[2023-01-11 03:40] LABS: BASOPHILS ABSOLUTE AUTO 0.04 K/mm3 (0.00-0.23); BASOPHILS PERCENT AUTO 0 % (0-2); EOSINOPHILS PERCENT AUTO 3 % (0-6); Hematocrit 34.1 % (37.0-53.0); Hemoglobin 11.1 g/dL (13.5-17.5); IMMATURE GRAN ABSOLUTE AUTO 0.06 K/mm3 (0.00-0.10); IMMATURE GRAN PERCENT AUTO 1 % (0-1); LYMPHOCYTES ABSOLUTE AUTO 0.78 K/mm3 (0.84-5.20); LYMPHOCYTES PERCENT AUTO 6 % (21-46); MONOCYTES ABSOLUTE AUTO 1.27 K/mm3 (0.16-1.47); MONOCYTES PERCENT AUTO 10 % (4-13); Mean Corpuscular HGB 28.2 pg (26.0-34.0); Mean Corpuscular HGB Conc 32.6 g/dL (31.5-36.5); Mean Corpuscular Volume 87 fL (80-100); Mean Platelet Volume 9.3 fL (9.1-12.4); NEUTROPHILS ABSOLUTE AUTO 10.23 K/mm3 (1.96-9.15); NEUTROPHILS PERCENT AUTO 80 % (41-73); Platelet Count 479 K/mm3 (150-400); RDW Coefficient Variation 12.9 % (11.7-14.2); RDW Standard Deviation 41.1 fL (35.1-46.3); Red Blood Cell Count 3.93 M/mm3 (4.30-5.90); White Blood Cell Count 12.78 K/mm3 (4.00-11.30)
[2023-01-11 04:03] LABS: Bun/Creatinine Ratio 35.4 (12.0-20.0); Calcium, Blood 8.8 mg/dL (8.5-10.1); Creatinine, Blood 0.51 mg/dL (0.60-1.20); Potassium, Blood 4.1 mmol/L (3.5-5.5)
--- NOTE | 2023-01-11 06:47 | NUR ---
PATIENT AOX2-3. IMPULSIVE BEHAVIOR IMPROVING. ABLE TO WEAN OFF PRECEDEX GTT OVERNIGHT. SR WITH STABLE BP. O2 WEANED DOWN TO 2L NC. NO BM OVERNIGHT AND PT INCONTINENT.
[2023-01-11 09:33] LABS: Triglycerides 124 mg/dL (30-160)
--- NOTE | 2023-01-11 11:06 | NUR ---
ASSUMED CARE OF PT AT 0715 BEDSIDE REPORT RECIEVED FROM NOC RN, PT APPEARS TO BE RESTING COMFORTABLY, C/O HEADACHE, MEDICATED X1 WITH FENTANYL ON PREVIOUS SHIFT WITH MINIMAL RELIEF. CLINIMIX INFUSING, DENIES N/V, NO BM. ON 2L NC, FREQUENT COUGH, OCCASIONALLY PRODUCTIVE, COUGH HAS BEEN PATIENT'S BASELINE FOR SEVERAL MONTHS, LIKEY DUE TO LARGE LUNG MASS, BIOPSY DONE YESTERDAY 01/10. NO LONGER REQUIRING PRECEDEX, MENTATION IMPROVING, ETOH WITHDRAWL RESOLVED. RN TO CONTINUE TO MONITOR.
--- NOTE | 2023-01-11 12:30 | NUR ---
STATUS CHANGE TO U REPORT CALLED TO SHANNON WAGNER. PT TRANSFERRED TO U 10 VIA W/C ON 2L NC WITH ALL BELONGINGS AND ACCOMPANIED BY RN AND PT'S FRIEND. PT AGREEABLE TO TRANSFER.
--- NOTE | 2023-01-11 13:00 | NUR ---
PT TRANSFER TO PCU 10 VIA WHEELCHAIR. ABLE TO STAND AND TRANSFER TO CHAIR WITH ONE PERSON. CHAIR ALARM IN PLACE. SPEECH HARD TO UNDERSTAND. PERRLA. DENIES N/T. OVERALL WEAKNESS NOTED. ALERT AND ORIENTED X3. ON 2L NASAL CANNULA SATING MID 90'S. DESATS WHEN UP WALKING/STANDING. RR 20-22. LUNGS SOUNDING COARSE THROUGHOUT AND DIM ON LEFT SIDE. COARSE HACKING COUGH. SOB WITH MOVEMENT AND TALKING. FLUTTER VALVE AT BEDSIDE AND PATIENT ENCOURAGED TO USE. TELE SHOWING SR WITH HR 90'S. NO TELE EVENTS THUS FAR IN PCU. DENIES CHEST PAIN/PRESSURE. BP STABLE. PPP. NO SIGNS OF EDEMA. VOIDING USING URINAL/INCONTINENCE. MECH SOFT DIET AND TOLERATING WELL. PATIENT FAMLIY AT BEDSIDE UPON TRANSFER. CALL LIGHT IN REACH. WILL CONTINUE TO MONITOR.
--- NOTE | 2023-01-11 14:56 | NUR ---
Spiritual Care Visit. Pt. is awake and welcomes my visit. Pt. is pleasant, but is sometimes hard to understand. Listen with empathy and focus. Pt. displays evidence of being engaged and generally alert. Considered matters of daniel and belief. Facilitated a life review. Prayed with Pt. Pt. verbalized gratitude for the spiritual care visit.
--- NOTE | 2023-01-11 16:46 | NUR ---
ALE CALLED AND THIS RN UPDATED ON PATIENT TRANSFER AND STATUS. THIS RN HELPED PATIENT CALL FROM ROOM. PATIENT COMPLAINS OF HEADACHE 8/10. PRN FENTANYL GIVEN WITH MINIMAL RELIEF, PAIN BROUGHT DOWN TO 6/10 AFTER TAKING A SMALL NAP.
--- NOTE | 2023-01-11 17:47 | NUR ---
SHIFT SUMMARY: NO ACUTE CHANGES. SEE PREVIOUS NOTES. PATIENT EATING DINNER AT THIS TIME AND VISITORS AT BEDSIDE. PT REPORTS HEADACHE HAS DIMINISHED. VITAL SIGNS REMAIN STABLE. REMAINS ON 2L NASAL CANNULA. USING URINAL TO VOID. REMAINS IN SR. WILL CONTINUE TO MONITOR.
--- NOTE | 2023-01-12 03:58 | NUR ---
SHIFT SUMMARY PT REMAINS ALERT AND ORIENTED WITH INTERMITTENT CONFUSION AT TIMES. VS STABLE. PT REMAINS ON 2L NC WITH SATS >90%. PT COMPLAINED OF HEADACHE ON AND OFF AND MEDICATED PER EMAR. PT REPOSITIONING HIMSELF IN BED. PT USING URINAL TO VOID. NO OTHER ACUTE CHANGES THIS SHIFT. WILL CONTINUE TO MONITOR AND RPEORT TO ONCOMING RN
[2023-01-12 04:34] LABS: BASOPHILS ABSOLUTE AUTO 0.04 K/mm3 (0.00-0.23); BASOPHILS PERCENT AUTO 0 % (0-2); EOSINOPHILS ABSOLUTE AUTO 0.03 K/mm3 (0.00-0.68); EOSINOPHILS PERCENT AUTO 0 % (0-6); IMMATURE GRAN ABSOLUTE AUTO 0.09 K/mm3 (0.00-0.10); IMMATURE GRAN PERCENT AUTO 1 % (0-1); LYMPHOCYTES PERCENT AUTO 6 % (21-46); MONOCYTES ABSOLUTE AUTO 1.15 K/mm3 (0.16-1.47); MONOCYTES PERCENT AUTO 7 % (4-13); Mean Corpuscular HGB 28.4 pg (26.0-34.0); Mean Corpuscular HGB Conc 32.4 g/dL (31.5-36.5); Mean Corpuscular Volume 88 fL (80-100); Mean Platelet Volume 9.3 fL (9.1-12.4); NEUTROPHILS ABSOLUTE AUTO 14.28 K/mm3 (1.96-9.15); NEUTROPHILS PERCENT AUTO 87 % (41-73); Platelet Count 520 K/mm3 (150-400); RDW Coefficient Variation 12.9 % (11.7-14.2); RDW Standard Deviation 41.1 fL (35.1-46.3); Red Blood Cell Count 4.23 M/mm3 (4.30-5.90); White Blood Cell Count 16.49 K/mm3 (4.00-11.30)
[2023-01-12 04:52] LABS: Bun/Creatinine Ratio 35.4 (12.0-20.0); Calcium, Blood 8.9 mg/dL (8.5-10.1); Creatinine, Blood 0.62 mg/dL (0.60-1.20); Potassium, Blood 4.2 mmol/L (3.5-5.5)
--- NOTE | 2023-01-12 13:58 | NUR ---
Spiritual Care Visit. Pt. is awake, sitting up in a recliner and welcomes my visit. Pt. is unsettled about his hospitalization, but verbalizes a desire to go to [facility] for more physical therapy. Listen with empathy and a calming presence. Establish rapport. Pt. displays evidence of engaging and verbalizes his concerns about staying in the hospital. Prayed with Pt. Pt. verbalized gratitude for the spiritual care visit.
--- NOTE | 2023-01-12 16:30 | NUR ---
PATIENT TRANSFERRED FROM PCU 10 TO ROOM 348, REPORT RECEIVED FROM SHANNON EUCEDA. PATIENT ABLE TO TRANSFER FROM W/C TO BED WITH A SBA, GAIT STEADY. 2LO2 VIA NC TO MAINTAIN SATS. PATIENT REPORTS PAIN TO LOWER BACK, LIDOCAINE PATCH IN PLACE WITH GOOD RELIEF PER PATIENT. ORIENTED TO ROOM AND USE OF CALL LIGHT. PATIENT DENIES ANY NEEDS AT THIS TIME. CALL LIGHT AND BELNGINGS WITHIN REACH.
[2023-01-13 06:32] LABS: BASOPHILS ABSOLUTE AUTO 0.03 K/mm3 (0.00-0.23); BASOPHILS PERCENT AUTO 0 % (0-2); EOSINOPHILS ABSOLUTE AUTO 0.07 K/mm3 (0.00-0.68); EOSINOPHILS PERCENT AUTO 1 % (0-6); Hematocrit 35.7 % (37.0-53.0); Hemoglobin 11.7 g/dL (13.5-17.5); IMMATURE GRAN ABSOLUTE AUTO 0.06 K/mm3 (0.00-0.10); IMMATURE GRAN PERCENT AUTO 1 % (0-1); LYMPHOCYTES ABSOLUTE AUTO 1.04 K/mm3 (0.84-5.20); LYMPHOCYTES PERCENT AUTO 8 % (21-46); MONOCYTES ABSOLUTE AUTO 1.16 K/mm3 (0.16-1.47); MONOCYTES PERCENT AUTO 9 % (4-13); Mean Corpuscular HGB Conc 32.8 g/dL (31.5-36.5); Mean Corpuscular Volume 88 fL (80-100); Mean Platelet Volume 9.6 fL (9.1-12.4); NEUTROPHILS ABSOLUTE AUTO 10.78 K/mm3 (1.96-9.15); NEUTROPHILS PERCENT AUTO 82 % (41-73); Platelet Count 536 K/mm3 (150-400); RDW Standard Deviation 41.8 fL (35.1-46.3); Red Blood Cell Count 4.04 M/mm3 (4.30-5.90); White Blood Cell Count 13.14 K/mm3 (4.00-11.30)
--- NOTE | 2023-01-13 17:42 | NUR ---
PATIENT TO D/C TOMORROW TO [facility]. PATIENT UP FREQUENTLY TODAY AND IS NOT ALWAYS COMPLIANT WITH FALL PRECAUTIONS AND USING HIS WALKER. PATIENT ON 2LO2 AND FREQUENTLY REMOVES. WILL REPLACE O2 WHEN ASKED, BUT QUICKLY REMOVES. 95% AT REST, BUT DESATS WITH ACTIVTY. REPORTS BACK PAIN, LIDOCAINE PATCH IN PLACE TO TREAT. PATIENT ABLE TO MAKE NEEDS KNOWN.
[2023-01-14 05:08] LABS: SARS-Cov-2 (COVID-19) PCR, MMC NEGATIVE (NEGATIVE)
--- NOTE | 2023-01-14 06:13 | NUR ---
PT HAS WEAK BUT STABLE GAIT, VSS ON 2LO2, CONTINENT OF BOWEL AND BLADDER, TOLERATING PO INTAKE, NO STRAW. COMPLAINS OF MODERATE CHRONIC BACK PAIN, TYLENOL EFFECTIVE. FORGETFUL BUT ORIENTED X2-3. COVID TEST RESULT WAS NEGATIVE, PENDING DISCHARGE LATER TODAY TO SNF. UNEVENTFUL NIGHT.
[2023-01-14] MEDS ORDERED: Acetaminophen325 M1 PO (10:02)
[2023-01-14] MEDS ORDERED: Colace100 MG PO (10:16)
[2023-01-14] MEDS ORDERED: FOLI1 PO (10:16)
[2023-01-14] MEDS ORDERED: IPRAT-ALBUT 0.5-3 ML INH (10:18)
[2023-01-14] MEDS ORDERED: LISI20 PO (10:18)
[2023-01-14] MEDS ORDERED: LIDO700A20 TOP (10:18)
[2023-01-14] MEDS ORDERED: DULCOLAX400 MG/5 M PO (10:19)
[2023-01-14] MEDS ORDERED: SPIR25 PO (10:21)
[2023-01-14] MEDS ORDERED: METO50 PO (10:21)
[2023-01-14] MEDS ORDERED: B-1100 M1 PO (10:21)
--- NOTE | 2023-01-14 12:09 | NUR ---
DISCHARGE NOTE: PT A&O X4, PLEASANT AND COOPERATIVE. PT IV REMOVED BY FIRE BATTALION CHIEF W/O ANY DIFFICULTIES AND CATHETER TIP INTACTED. GAVE REPORT TO [facility]UC[facility]. [facility] WITH OXYGEN 2L NC. PT BELONGINGS PACKED BY PT AND PT DRESSED INDEPENDANTLY.
== END 2023-01-14 10:09 | DRG 871 ==
LOC: ER 05:57 → MEDS 09:57 → PCU 09:57 → ICUE 09:57 → PCU 11:02 → ICUE 01-03 03:45 → PCU 01-11 12:38 → MEDS 01-12 16:44
PROVIDERS: Emergency Medicine; Family Medicine; Hospitalist; Internal Medicine; Internal Medicine Critical Care Medicine; Student in an Organized Health Care Education/Training Program; Surgery Pediatric Surgery; ADMIT Internal Medicine
PROC: 3E03329 Introduction of Other Anti-infective into Peripheral Vein, Percutaneous Approach (ICD-10-PCS; principal; 2023-01-01)
PROC: 0DH67UZ Insertion of Feeding Device into Stomach, Via Natural or Artificial Opening (ICD-10-PCS; 2023-01-01)
PROC: 4A033R1 Measurement of Arterial Saturation, Peripheral, Percutaneous Approach (ICD-10-PCS; 2023-01-01)
PROC: HZ2ZZZZ Detoxification Services for Substance Abuse Treatment (ICD-10-PCS; 2023-01-01)
PROC: 3E02340 Introduction of Influenza Vaccine into Muscle, Percutaneous Approach (ICD-10-PCS; 2023-01-01)
PROC: 5A09357 Assistance with Respiratory Ventilation, Less than 24 Consecutive Hours, Continuous Positive Airway Pressure (ICD-10-PCS; 2023-01-01)
PROC: 5A0935A Assistance with Respiratory Ventilation, Less than 24 Consecutive Hours, High Flow/Velocity Cannula (ICD-10-PCS; 2023-01-06)
PROC: 0BBG3ZX Excision of Left Upper Lung Lobe, Percutaneous Approach, Diagnostic (ICD-10-PCS; 2023-01-10)
DX: A41.9 Sepsis, unspecified organism (principal); E43 Unspecified severe protein-calorie malnutrition; G92.8 Other toxic encephalopathy; J18.9 Pneumonia, unspecified organism; J96.01 Acute respiratory failure with hypoxia; R64 Cachexia; Z68.1 Body mass index [BMI] 19.9 or less, adult; J44.0 Chronic obstructive pulmonary disease with (acute) lower respiratory infection; E87.1 Hypo-osmolality and hyponatremia; F10.239 Alcohol dependence with withdrawal, unspecified; I50.42 Chronic combined systolic (congestive) and diastolic (congestive) heart failure; J98.11 Atelectasis; C34.12 Malignant neoplasm of upper lobe, left bronchus or lung; C79.9 Secondary malignant neoplasm of unspecified site; F41.9 Anxiety disorder, unspecified; R65.20 Severe sepsis without septic shock; Z20.822 Contact with and (suspected) exposure to COVID-19; Z78.1 Physical restraint status; Z23 Encounter for immunization; F15.10 Other stimulant abuse, uncomplicated; G25.81 Restless legs syndrome; I48.91 Unspecified atrial fibrillation; I11.0 Hypertensive heart disease with heart failure; I73.9 Peripheral vascular disease, unspecified; F17.210 Nicotine dependence, cigarettes, uncomplicated; Z95.828 Presence of other vascular implants and grafts; Z79.02 Long term (current) use of antithrombotics/antiplatelets; Z79.82 Long term (current) use of aspirin; Z79.899 Other long term (current) drug therapy
CPT/HCPCS: 0241U; 32408; 36415; 36600; 70470; 71045; 71260; 77012; 80048; 80053; 82803; 82947; 83605; 83735; 83880; 84100; 84439; 84443; 84478; 84484; 85025; 85610; 85730; 87040; 88305; 88341; 88342; 90686; 92526; 92610; 93005; 93010; 93306; 94640; 94644; 94660; 94664; 94667; 94668; 94760; 94761; 94762; 96361; 96365-59; 96367; 96375-59; 97110; 97110-CQ; 97116; 97116-CQ; 97162; 97166; 97530; 97535; 99285-25; A9270; C1751; J0282; J0456; J0696; J1650; J1885; J2060; J2405; J2930; J3010; J3411; J3475; J7030; J7040; J7050; J7060; J7120; J7512; Q9967; U0004

== ENCOUNTER 2023-02-18 11:16 | Inpatient (IN) | payer OTHER ==
[~2023-02-18] VITALS: Ht 182.9 cm; Wt 55.3 kg
[~2023-02-18 11:16] MED LIST changes: +Acetaminophen325 M1 PO; +B-1100 M1 PO; +Colace100 MG PO; +DULCOLAX400 MG/5 M PO; +FISH OIL 1,2001 EAC7 PO; +FOLI1 PO; +IPRAT-ALBUT 0.5-3 ML INH; +LISI20 PO; +METO50ER PO; +SPIR25 PO
[2023-02-18 11:43] LABS: BASOPHILS ABSOLUTE AUTO 0.04 K/mm3 (0.00-0.23); BASOPHILS PERCENT AUTO 0 % (0-2); EOSINOPHILS ABSOLUTE AUTO 0.02 K/mm3 (0.00-0.68); EOSINOPHILS PERCENT AUTO 0 % (0-6); Hematocrit 31.1 % (37.0-53.0); Hemoglobin 10.1 g/dL (13.5-17.5); IMMATURE GRAN ABSOLUTE AUTO 0.07 K/mm3 (0.00-0.10); IMMATURE GRAN PERCENT AUTO 1 % (0-1); LYMPHOCYTES ABSOLUTE AUTO 0.38 K/mm3 (0.84-5.20); LYMPHOCYTES PERCENT AUTO 3 % (21-46); MONOCYTES PERCENT AUTO 2 % (4-13); Mean Corpuscular HGB 28.8 pg (26.0-34.0); Mean Corpuscular HGB Conc 32.5 g/dL (31.5-36.5); Mean Corpuscular Volume 89 fL (80-100); Mean Platelet Volume 8.7 fL (9.1-12.4); NEUTROPHILS ABSOLUTE AUTO 10.91 K/mm3 (1.96-9.15); NEUTROPHILS PERCENT AUTO 94 % (41-73); Platelet Count 368 K/mm3 (150-400); RDW Standard Deviation 50.3 fL (35.1-46.3); Red Blood Cell Count 3.51 M/mm3 (4.30-5.90); White Blood Cell Count 11.62 K/mm3 (4.00-11.30)
[2023-02-18 12:01] LABS: Albumin, Blood 2.8 g/dL (3.4-5.0); Albumin/Globulin Ratio 0.7 (0.8-1.8); Bilirubin, Total 0.4 mg/dL (0.1-1.0); Bun/Creatinine Ratio 18.2 (12.0-20.0); Calcium, Blood 7.8 mg/dL (8.5-10.1); Creatinine, Blood 0.49 mg/dL (0.60-1.20); Globulin, Blood 4.1 g/dL (2.2-4.0); Magnesium, Blood 1.7 mg/dL (1.6-2.4); Potassium, Blood 4.3 mmol/L (3.5-5.5); Total Protein, Blood 6.9 g/dL (6.4-8.2)
[2023-02-18] MEDS ORDERED: NALOXONE H0.4 MG/1 M IM (16:30)
[2023-02-18] MEDS ORDERED: OXYC5 PO (16:31)
[2023-02-18] MEDS ORDERED: ONDA4ODT MM (16:33)
[2023-02-18] MEDS ORDERED: TIOT18 INH (16:34)
[2023-02-18] MEDS ORDERED: QUET100 PO (16:35)
[2023-02-18] MEDS ORDERED: SENNA LAXATIVE8.6 MG PO (16:35)
[2023-02-18 16:38] LABS: Automated BF RBC Count 0.003 M/mm3 (0-0); Automated BF WBC Count 0.639 K/mm3 (0-999)
[2023-02-18 16:44] LABS: Body Fluid WBC Count 639 /mm3 (0-999); RBC Count, Body Fluid 3000 /mm3 (0-0)
[2023-02-18 17:04] LABS: Albumin, Body Fluid 1.1 g/dL; Glucose, Body Fluid 121 mg/dL; Lactate Dehydrogenase, Body Fl 144 U/L; Protein, Body Fluid 2.1 g/dL
[2023-02-18 17:10] VITALS: BP 115/65
[2023-02-18 18:16] LABS: Appearance, Body Fluid Hazy (Clear); Color, Body Fluid Yellow (None-Yellow); Total Cell Count, Body Fluid 200
[2023-02-18 20:04] VITALS: BP 105/65
[2023-02-19 04:30] VITALS: BP 139/67
--- NOTE | 2023-02-19 04:38 | NUR ---
SHIFT SUMMERY, PT RESTING IN BED, PTS BEDDING CHANGED BEDDING WET FROM PT USING URINAL AND SPILLING. LATTER PT MEDICATED FOR BACK PAIN AND WARM PAD APPLYED. PT FELL ASLEEP SOON AFTER. BED ALARM TELECOM ANALYST LIGHT IN REACH.
[2023-02-19 05:01] LABS: Hemoglobin 11.1 g/dL (13.5-17.5); Mean Corpuscular HGB 29.4 pg (26.0-34.0); Mean Corpuscular HGB Conc 33.6 g/dL (31.5-36.5); Mean Corpuscular Volume 87 fL (80-100); Mean Platelet Volume 8.6 fL (9.1-12.4); Platelet Count 494 K/mm3 (150-400); RDW Coefficient Variation 16.1 % (11.7-14.2); RDW Standard Deviation 49.4 fL (35.1-46.3); Red Blood Cell Count 3.78 M/mm3 (4.30-5.90)
[2023-02-19 05:10] LABS: White Blood Cell Count 81.56 K/mm3 (4.00-11.30)
[2023-02-19 05:16] LABS: Bun/Creatinine Ratio 29.2 (12.0-20.0); Creatinine, Blood 0.58 mg/dL (0.60-1.20); Potassium, Blood 3.9 mmol/L (3.5-5.5)
[2023-02-19 05:38] LABS: BAND PERCENT MAN 10 % (0-8); BASOPHILS PERCENT MAN 0 % (0-2); EOSINOPHILS PERCENT MAN 0 % (0-6); LYMPHOCYTES ABSOLUTE MAN 0.81 K/mm3 (0.84-5.20); LYMPHOCYTES PERCENT MAN 1 % (21-46); METAMYELOCYTE ABSOLUTE MAN 0.81 K/mm3 (0.00-0.00); METAMYELOCYTE PERCENT MAN 1 % (0-0); MONOCYTES ABSOLUTE MAN 0.81 K/mm3 (0.16-1.47); MONOCYTES PERCENT MAN 1 % (4-13); NEUTROPHILS ABSOLUTE MAN 79.11 K/mm3 (1.96-9.15); SEG NEUTROPHILS PERCENT MAN 87 % (41-73); TOTAL CELLS COUNTED 100
[2023-02-19 07:49] VITALS: BP 119/60
--- NOTE | 2023-02-19 14:48 | NUR ---
RN CALLED ALE PER HER REQUEST FROM A NOTE FROM [employer]. ALE WAS UPSET THAT NO DOCTOR HAD GIVEN HER A PHONE CALL YET SINCE HER 'S ADMISSION. RN APOLOGIZED AND ASKED IF THERE WAS ANYTHING SPECIFIC THAT COULD BE ANSWERED FOR HER. CONTINUED TO YELL AND SPEAK FOR SEVERAL MINUTES. RN AGAIN ASKED WHAT QUESTIONS COULD BE ANSWERED. ALE ASKED WHAT THE PLAN WAS FOR HER FOR THE FUTURE AND THE NEXT MONTH. RN GAVE THE INFORMATION THAT WAS AVAILABLE FROM THE DOCTOR'S NOTES AND THE MOST RECENT UPDATES. ALE WAS STILL UPSET AND FRUSTRATED. ALE CONTINUED TO YELL. RN INFORMED ALE SHE NEEDED TO CALM DOWN AND STOP YELLING OR THE CONVERSATION WOULD BE OVER. ALE CONTINUED TO YELL. RN SAID SHE WOULD BE ASKING THE DOCTOR TO CALL HER AND SAID BRENT.
[2023-02-19 14:52] VITALS: BP 105/68
--- NOTE | 2023-02-19 17:32 | NUR ---
SHIFT SUMMARY: NO NEW ACUTE CHANGES IN PATIENT CONDITION THIS SHIFT. PATIENT A&OX3. PLEASANT AND COOPERATIVE c CARE. PATIENT REPORTS GENERALIZED PAIN 06/09. MEDICATED c TRAMADOL X1 c GOOD EFFECT. DENIES CP/PRESSURE, NV. PATIENT HAS BEEN RESTING IN BED T/O THE DAY. PATIENT ON 3L OF O2 VIA NC c SPO2 RANGES 91-93%. LUNGS HAS CRACKLES/DIM T/O TO AUSCULTATION. RECEIVED SCHEDULED MEDS PER EMAR. VITAL SIGNS REVIEWED. BED ALARM ON FOR SAFETY. CALL LIGHT IN REACH.
[2023-02-19 19:12] VITALS: BP 109/61
--- NOTE | 2023-02-20 03:42 | NUR ---
SHIFT SUMMARY NOC PT A/O X 3-4. NO ACUTE CHANGES TO REPORT. PT PLEASANT AND COOPERATIVE WITH CARE. PT HAD C/O OF GEN PAIN AND WAS MEDICATED PER EMAR. PT ON O2 3L/NC SPO2 >92%. PT HAD NO C/O OF CP/SOB. CRACKLES/DIM NOTED BL LUNGS. PT HAS CONDOM CATH IN PLACE DRAINING URINE TO GRAVITY. PT IS CURRENTLY RESTING WITH BED ALARM ON, BED IN LOWEST POSITION, AND CALL LIGHT WITHIN REACH.
[2023-02-20 03:55] VITALS: BP 106/56
[2023-02-20 04:23] LABS: Mean Corpuscular HGB 29.2 pg (26.0-34.0); Mean Corpuscular HGB Conc 33.3 g/dL (31.5-36.5); Mean Corpuscular Volume 88 fL (80-100); Mean Platelet Volume 8.6 fL (9.1-12.4); Platelet Count 430 K/mm3 (150-400); RDW Coefficient Variation 16.3 % (11.7-14.2); RDW Standard Deviation 50.7 fL (35.1-46.3); Red Blood Cell Count 3.43 M/mm3 (4.30-5.90)
[2023-02-20 04:30] LABS: White Blood Cell Count 63.01 K/mm3 (4.00-11.30)
[2023-02-20 04:42] LABS: Albumin, Blood 2.6 g/dL (3.4-5.0); Anion Gap 1 mmol/L (6-16); Blood Urea Nitrogen 20 mg/dL (8-24); Bun/Creatinine Ratio 34.1 (12.0-20.0); CO2, Blood 32 mmol/L (21-32); Calcium, Blood 7.8 mg/dL (8.5-10.1); Chloride, Blood 102 mmol/L (98-108); Creatinine, Blood 0.59 mg/dL (0.60-1.20); Glomerular Filtration Rate 104 (60-); Glucose, Blood 131 mg/dL (70-99); Phosphorus, Blood 2.5 mg/dL (2.5-4.9); Potassium, Blood 3.8 mmol/L (3.5-5.5); Sodium, Blood 135 mmol/L (136-145)
[2023-02-20 04:55] LABS: BAND PERCENT MAN 10 % (0-8); BASOPHILS PERCENT MAN 0 % (0-2); EOSINOPHILS PERCENT MAN 0 % (0-6); LYMPHOCYTES ABSOLUTE MAN 1.26 K/mm3 (0.84-5.20); LYMPHOCYTES PERCENT MAN 2 % (21-46); MONOCYTES ABSOLUTE MAN 0.63 K/mm3 (0.16-1.47); MONOCYTES PERCENT MAN 1 % (4-13); NEUTROPHILS ABSOLUTE MAN 61.11 K/mm3 (1.96-9.15); SEG NEUTROPHILS PERCENT MAN 87 % (41-73); TOTAL CELLS COUNTED 100
[2023-02-20 07:32] VITALS: BP 121/67
[2023-02-20 10:57] LABS: Source, Urine Clean Catch
[2023-02-20 11:03] LABS: Appearance, Urine Clear (Clear); Bilirubin, Urine Neg (Neg); Blood, Urine Neg (Neg); Glucose Qualitative, Urine Neg (Neg); Ketones, Urine Neg (Neg); Leukocyte Esterase, Urine Neg (Neg); Nitrite, Urine Neg (Neg); Protein, Urine Neg (Neg); Specific Gravity, Urine 1.015 (1.003-1.022); Urobilinogen, Urine NORM (Normal)
[2023-02-20 11:08] LABS: Color, Urine Pale Yellow (P-Yellow)
[2023-02-20 15:01] VITALS: BP 116/59
--- NOTE | 2023-02-20 19:29 | NUR ---
SHIFT SUMMARY: NO NEW ACUTE CHANGES IN PATIENT CONDITION THIS SHIFT. PATIENT A&OX3. ANXIOUS, FORGETFUL AND COOPERATIVE c CARE. PATIENT DENIES CP/PRESSURE, N/V. PATIENT REPORTS GENERALIZED PAIN 06/09. APPLIED LIDOCANE PATCH TO L UPPER BACK. PATIENT REPORTS ADEQUATE RELIEF. RECEIVED SCHEDULED MEDS PER EMAR. PATIENT HAD 3500 MLS OF URINE OUTPUT THIS SHIFT. LUNGS HAS FINE CRACKLES T/O TO AUSCULATATION. PATIENT ON 3L OF O2 VIA NC c SPO2 RANGES 94-95% RESTING IN BED, BUT c ACTIVITIES DROPPED O2 TO LOW 80'S. VITAL SIGNS REVIEWED. BED ALARM ON FOR SAFETY. CALL LIGHT IN REACH.
[2023-02-20 19:44] VITALS: BP 122/60
[2023-02-20] MEDS ORDERED: Aspir 8181 MG PO (23:40)
[2023-02-20] MEDS ORDERED: XARELTO2.5 M1 PO (23:44)
[2023-02-21] VITALS (7 sets, daily range): BP systolic 96–129; BP diastolic 48–91
[2023-02-21 02:38] LABS: Adenovirus Not Detected (NOT DETECT); Bordetella pertussis Not Detected (NOT DETECT); Chlamydophila pneumoniae Not Detected (NOT DETECT); Coronavirus 229E Not Detected (NOT DETECT); Coronavirus HKU1 Not Detected (NOT DETECT); Coronavirus NL63 Not Detected (NOT DETECT); Coronavirus OC43 Not Detected (NOT DETECT); Human Metapneumovirus Not Detected (NOT DETECT); Human Rhinovirus/Enterovirus Not Detected (NOT DETECT); Influenza A/2009-H1 Not Detected (NOT DETECT); Influenza A/H1 Not Detected (NOT DETECT); Influenza A/H3 Not Detected (NOT DETECT); Influenza B Not Detected (NOT DETECT); Mycoplasma pneumoniae Not Detected (NOT DETECT); Parainfluenza Virus 1 Not Detected (NOT DETECT); Parainfluenza Virus 2 Not Detected (NOT DETECT); Parainfluenza Virus 3 Not Detected (NOT DETECT); Parainfluenza Virus 4 Not Detected (NOT DETECT); Respiratory Syncytial Virus Not Detected (NOT DETECT); SARS-Cov-2 (COVID-19), BioFire Not Detected (NOT DETECT)
--- NOTE | 2023-02-21 03:50 | NUR ---
SHIFT SUMMARY NOC PT A/O X 3-4. PLEASANT AND COOPERATIVE WITH CARE. PT HAD C/O OF LEG SPASMS AND GENERALIZED PAIN T/O. ORDERS FOR HOME RX ZANIFLEX AND OXYCODONE OBTAINED AND RELIEVED PT PAIN. PT ON 3L/NC MAINTAINING SPO2 >92%. PT PULLED LIDOCAINE PATCH OFF BECAUSE HE SAID IT WAS NOT WORKING SO ANOTHER WAS NOT PUT BACK ON. PT RECEIVING ZOSYN/VANCOMYCIN FOR INFECTION. PT IS CURRENTLY RESTING WITH BED ALARM ON, BED IN LOWEST POSITION, AND CALL LIGHT WITHIN REACH.
[2023-02-21 05:14] LABS: Hematocrit 31.1 % (37.0-53.0); Mean Corpuscular HGB 28.7 pg (26.0-34.0); Mean Corpuscular HGB Conc 32.2 g/dL (31.5-36.5); Mean Corpuscular Volume 89 fL (80-100); Platelet Count 429 K/mm3 (150-400); RDW Coefficient Variation 16.3 % (11.7-14.2); RDW Standard Deviation 51.7 fL (35.1-46.3); Red Blood Cell Count 3.49 M/mm3 (4.30-5.90); White Blood Cell Count 47.34 K/mm3 (4.00-11.30)
[2023-02-21 05:38] LABS: BAND PERCENT MAN 8 % (0-8); BASOPHILS PERCENT MAN 0 % (0-2); EOSINOPHILS PERCENT MAN 0 % (0-6); LYMPHOCYTES ABSOLUTE MAN 0.94 K/mm3 (0.84-5.20); LYMPHOCYTES PERCENT MAN 2 % (21-46); MONOCYTES PERCENT MAN 0 % (4-13); NEUTROPHILS ABSOLUTE MAN 46.39 K/mm3 (1.96-9.15); SEG NEUTROPHILS PERCENT MAN 90 % (41-73); TOTAL CELLS COUNTED 100
[2023-02-21 09:51] LABS: Vancomycin, Trough 16.7 ug/mL (5.0-10.0)
--- NOTE | 2023-02-21 19:26 | NUR ---
PT DOING WELL TODAY. DID HAVE SLIGHT TEMP THIS AFT. 100.5. PT C/O PAIN GENERALIZED. MED WITH CAL AND TYLENOL TEMP DOWN UNDER 99. PT EXPRESSED HIS FATHER JUST THIS KARRIE. HAS BEEN ON PHONE AND IS HE IS GREIVING. OFFERED SUPPORT. REQUESTED TANYA ORTEGA TO CALL FOR SPIRITUAL SUPPORT. STATES HIS FATHER WAS A GREAT CATARPILLAR OPPERATOR. WAS IN TO VISIT. BROUGHT IN SOME FAST FOOD. NO OTHER CONCERNS NOTED. BED IN LOW POSITON, CALL LITE IN REACH. CALLS APPROP
[2023-02-22 04:12] VITALS: BP 148/71
--- NOTE | 2023-02-22 04:27 | NUR ---
SHIFT SUMMARY PT AOX3, SLEEPING OFF AN ON T/O THE NIGHT. HE WOKE UP AT AROUND 0400, IRRITATED. HE SOILED HIS BED AND PROCEEDED TO SOIL OUTSIDE OF THE BED BEFORE CURLING UP IN THE CHAIR. HE HAS C/O PAIN THIS SHIFT AND WAS MEDICATED PER THE EMAR. PT IS AFEBRILE AFTER RUNNING A SLIGHT TEMP AT THE START OF THE SHIFT. PLAN IS FOR HIM TO POTENTIALLY GO HOME TODAY AFTER AN O2 EVAL WITH HOME HEALTH. CALL LIGHT IS WITHIN REACH, BED IN THE LOWEST POSITION. WILL REPORT TO ONCOMING NURSE.
[2023-02-22 07:35] VITALS: BP 107/51
[2023-02-22 08:53] LABS: BASOPHILS ABSOLUTE AUTO 0.08 K/mm3 (0.00-0.23); BASOPHILS PERCENT AUTO 0 % (0-2); EOSINOPHILS ABSOLUTE AUTO 0.09 K/mm3 (0.00-0.68); EOSINOPHILS PERCENT AUTO 0 % (0-6); Hematocrit 31.5 % (37.0-53.0); Hemoglobin 10.3 g/dL (13.5-17.5); IMMATURE GRAN ABSOLUTE AUTO 0.35 K/mm3 (0.00-0.10); IMMATURE GRAN PERCENT AUTO 2 % (0-1); LYMPHOCYTES ABSOLUTE AUTO 0.85 K/mm3 (0.84-5.20); LYMPHOCYTES PERCENT AUTO 4 % (21-46); MONOCYTES ABSOLUTE AUTO 0.53 K/mm3 (0.16-1.47); MONOCYTES PERCENT AUTO 3 % (4-13); Mean Corpuscular HGB Conc 32.7 g/dL (31.5-36.5); Mean Corpuscular Volume 89 fL (80-100); Mean Platelet Volume 8.8 fL (9.1-12.4); NEUTROPHILS PERCENT AUTO 91 % (41-73); Platelet Count 387 K/mm3 (150-400); RDW Coefficient Variation 16.3 % (11.7-14.2); RDW Standard Deviation 52.2 fL (35.1-46.3); Red Blood Cell Count 3.55 M/mm3 (4.30-5.90)
[2023-02-22 09:22] LABS: Albumin, Blood 2.9 g/dL (3.4-5.0); Anion Gap 8 mmol/L (6-16); Blood Urea Nitrogen 21 mg/dL (8-24); CO2, Blood 27 mmol/L (21-32); Calcium, Blood 8.5 mg/dL (8.5-10.1); Chloride, Blood 101 mmol/L (98-108); Glomerular Filtration Rate 99 (60-); Glucose, Blood 127 mg/dL (70-99); Phosphorus, Blood 2.7 mg/dL (2.5-4.9); Potassium, Blood 4.5 mmol/L (3.5-5.5); Sodium, Blood 136 mmol/L (136-145); Vancomycin, Trough 18.8 ug/mL (5.0-10.0)
[2023-02-22] MEDS ORDERED: VISBIOME 112.51 EACH PO (12:52)
[2023-02-22] MEDS ORDERED: LEVO750 PO (12:52)
--- NOTE | 2023-02-22 14:11 | NUR ---
Spiritual care visit conducted. Patient is lying in bed and alert. Patient immediately talks about the news he received last night that his father had at age of 94. He tells me about the love/hate relationship they had as we explore the complicated grief he is experiencing. We also discuss his medical issues, his current chemotherapy schedule and how he is tolerating the therapy. 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 Patient speaks very little about family except to mentionhis and children from prior relationships. He enjoys conversation and clearly is elevated in his mood by being able to share his stories. I will continue to remain available to patient and family.
[2023-02-22 15:23] VITALS: BP 124/61
--- NOTE | 2023-02-22 18:09 | NUR ---
SHIFT SUMMARY HAD A HOME O2 EVAL TODAY AND REQUIRES O2. UNABLE TO HAVE SET UP BEFORE THE END OF THE DAY SO PT STAYING ANOTHER NIGHT. REPORTS ALL OVER PAIN TODAY WHICH WAS MEDICATED FOR. STATED IT TOOK THE EDGE OFF. AT BEDSIDE FOR SHORT TIME THIS AFTERNOON. UP AMBULATING WITH R.T. AND APPEARED STABLE ON HIS FEET. NO S/S SOB WITH ACITIVITY. CONTINENT OF URINE.
[2023-02-22 19:35] VITALS: BP 128/58
[2023-02-23 03:29] VITALS: BP 157/70
--- NOTE | 2023-02-23 04:23 | NUR ---
SHIFT SUMMARY PATIENT HAD LOOSE STOOL X ONE. AXOX 3 AND ONE ASSIST TO BSC. PIVS REMAINS INTACT. IV ABXS INFUSED. ON 2L O2 NC, PULLS OFF AT TIMES. VSS/AFEBRILE. DENIES CHEST PAIN, SOB, AND N/V. REPORTED GENERAL PAIN X ONE AND OXYCODONE 5 MG GIVEN PER EMAR. ON PHONE FIRST FEW HOURS OF SHIFT WITH FAMILY. CALL LIGHT IN REACH. BED IN LOWEST POSITION. WILL CONTINUE TO MONITOR UNTIL DAY SHIFT NURSE ASSUMES CARE.
[2023-02-23 07:44] VITALS: BP 89/48
[2023-02-23 08:23] LABS: Hematocrit 31.1 % (37.0-53.0); Hemoglobin 10.2 g/dL (13.5-17.5); Mean Corpuscular HGB 28.7 pg (26.0-34.0); Mean Corpuscular HGB Conc 32.8 g/dL (31.5-36.5); Mean Corpuscular Volume 87 fL (80-100); Mean Platelet Volume 9.1 fL (9.1-12.4); Platelet Count 338 K/mm3 (150-400); RDW Coefficient Variation 15.9 % (11.7-14.2); RDW Standard Deviation 49.2 fL (35.1-46.3); Red Blood Cell Count 3.56 M/mm3 (4.30-5.90); White Blood Cell Count 12.84 K/mm3 (4.00-11.30)
[2023-02-23 09:01] LABS: BAND PERCENT MAN 3 % (0-8); BASOPHILS PERCENT MAN 0 % (0-2); EOSINOPHILS PERCENT MAN 0 % (0-6); LYMPHOCYTES ABSOLUTE MAN 0.25 K/mm3 (0.84-5.20); LYMPHOCYTES PERCENT MAN 2 % (21-46); MONOCYTES ABSOLUTE MAN 0.89 K/mm3 (0.16-1.47); MONOCYTES PERCENT MAN 7 % (4-13); NEUTROPHILS ABSOLUTE MAN 11.68 K/mm3 (1.96-9.15); SEG NEUTROPHILS PERCENT MAN 88 % (41-73); TOTAL CELLS COUNTED 100
[2023-02-23 09:14] VITALS: BP 112/61
--- NOTE | 2023-02-23 15:35 | NUR ---
Spiritual care visit conducted. Patient is sitting on a chair and alert. He explains that he will D/C form the hospital today. He talks about his Charisma and how they met. He shares about the fun and the fights. He tells me he is glad to be going home and appreciates a prayer being said for his health and his . I gladly provide prayer. Patient states that he has enjoyed the conversation and has been encouraged by it and has taken some time to reflect on the weightier matters of life.
--- NOTE | 2023-02-23 18:42 | NUR ---
ASSUMPTION OF CARE REPORT GIVEN BY SHANNON RANDOLPH. ASSUMED CARE AND AGREE WITH DOCUMENTED ASSESSMENT. PTN D/C'D AT 1800, TAKEN TO ER EXIT BY TG SILVESTRE. D/C PAPERWORK GONE OVER WITH , AND THEN AGAIN WITH . PTN TO FOLLOWUP WITH HIS PRIMARY CARE AND ONCOLOGY, FOR WHICH STATED APPTS ALREADY SET. DROVE CAR TO EXIT AND PTN TRANSFERRED INTO CAR.
== END 2023-02-23 17:56 | disposition home or self-care (01) | DRG 177 ==
LOC: ER 11:16 → MEDS 15:06 → ENPENDDIS 02-22 14:32 → MEDS 02-23 17:56
PROVIDERS: Internal Medicine; Student in an Organized Health Care Education/Training Program; ADMIT Family Medicine
PROC: 0W9B30Z Drainage of Left Pleural Cavity with Drainage Device, Percutaneous Approach (ICD-10-PCS; principal; 2023-02-18)
DX: B37.1 Pulmonary candidiasis (principal); E43 Unspecified severe protein-calorie malnutrition; J96.01 Acute respiratory failure with hypoxia; I50.43 Acute on chronic combined systolic (congestive) and diastolic (congestive) heart failure; C34.92 Malignant neoplasm of unspecified part of left bronchus or lung; J44.1 Chronic obstructive pulmonary disease with (acute) exacerbation; E87.1 Hypo-osmolality and hyponatremia; F10.99 Alcohol use, unspecified with unspecified alcohol-induced disorder; I48.20 Chronic atrial fibrillation, unspecified; J91.0 Malignant pleural effusion; R64 Cachexia; D84.89 Other immunodeficiencies; Z20.822 Contact with and (suspected) exposure to COVID-19; I73.9 Peripheral vascular disease, unspecified; F15.90 Other stimulant use, unspecified, uncomplicated; D75.839 Thrombocytosis, unspecified; D63.8 Anemia in other chronic diseases classified elsewhere; I95.2 Hypotension due to drugs; T50.905A Adverse effect of unspecified drugs, medicaments and biological substances, initial encounter; G25.81 Restless legs syndrome; I11.0 Hypertensive heart disease with heart failure; F17.210 Nicotine dependence, cigarettes, uncomplicated; Z95.828 Presence of other vascular implants and grafts; Z79.01 Long term (current) use of anticoagulants; Z79.899 Other long term (current) drug therapy
CPT/HCPCS: 0202U; 32555; 36415; 71045; 80048; 80053; 80069; 80202; 81003; 82042; 82945; 83615; 83735; 83880; 84145; 84155; 84157; 84484; 85025; 87070; 87075; 87205; 88108; 88305; 89051; 93005; 93010; 94640; 94664; 94760; 94761; 94762; 96374-59; 97162; 97165; 97530; 99285-25; A9270; J0456; J0696; J1650; J1940; J2543; J3370; J7050; J7512

== ENCOUNTER 2023-08-05 13:43 | Inpatient (IN) | payer OTHER ==
[~2023-08-05] VITALS: Ht 182.9 cm; Wt 54.3 kg
[~2023-08-05 13:43] MED LIST changes: +LEVO750 PO; +NALOXONE H0.4 MG/1 M IM; +ONDA4ODT MM; +OXYC5 PO; +SENNA LAXATIVE8.6 MG PO; +TIOT18 INH; +VISBIOME 112.51 EACH PO; +XARELTO2.5 M1 PO
[2023-08-05 14:58] LABS: BASOPHILS ABSOLUTE AUTO 0.03 K/mm3 (0.00-0.23); BASOPHILS PERCENT AUTO 0 % (0-2); EOSINOPHILS ABSOLUTE AUTO 0.22 K/mm3 (0.00-0.68); EOSINOPHILS PERCENT AUTO 2 % (0-6); Hematocrit 35.6 % (37.0-53.0); Hemoglobin 11.5 g/dL (13.5-17.5); IMMATURE GRAN ABSOLUTE AUTO 0.05 K/mm3 (0.00-0.10); IMMATURE GRAN PERCENT AUTO 1 % (0-1); LYMPHOCYTES ABSOLUTE AUTO 0.54 K/mm3 (0.84-5.20); LYMPHOCYTES PERCENT AUTO 6 % (21-46); MONOCYTES ABSOLUTE AUTO 1.42 K/mm3 (0.16-1.47); MONOCYTES PERCENT AUTO 16 % (4-13); Mean Corpuscular HGB Conc 32.3 g/dL (31.5-36.5); Mean Corpuscular Volume 90 fL (80-100); Mean Platelet Volume 8.7 fL (9.1-12.4); NEUTROPHILS ABSOLUTE AUTO 6.79 K/mm3 (1.96-9.15); NEUTROPHILS PERCENT AUTO 75 % (41-73); Platelet Count 333 K/mm3 (150-400); RDW Coefficient Variation 15.8 % (11.7-14.2); RDW Standard Deviation 51.6 fL (35.1-46.3); Red Blood Cell Count 3.96 M/mm3 (4.30-5.90); White Blood Cell Count 9.05 K/mm3 (4.00-11.30)
[2023-08-05] MEDS ORDERED: MERIBIN5 MG PO (15:07)
[2023-08-05] MEDS ORDERED: ALBU90OI INH (15:07)
[2023-08-05] MEDS ORDERED: TURMERIC500 M2 PO (15:08)
[2023-08-05 15:24] LABS: Albumin/Globulin Ratio 0.7 (0.8-1.8); Bilirubin, Total 0.1 mg/dL (0.1-1.0); Bun/Creatinine Ratio 18.9 (12.0-20.0); Calcium, Blood 8.7 mg/dL (8.5-10.1); Creatinine, Blood 0.69 mg/dL (0.60-1.20); Globulin, Blood 4.5 g/dL (2.2-4.0); Potassium, Blood 4.3 mmol/L (3.5-5.5); Total Protein, Blood 7.5 g/dL (6.4-8.2)
[2023-08-05 17:39] LABS: Anti-Xa UFH, PHA Monitoring <0.10 IU/mL; International Normalized Ratio 0.98; Prothrombin Time Results 10.3 Sec (9.7-11.5)
[2023-08-05] MEDS ORDERED: Seroquel Xr50 MG PO (22:39)
[2023-08-05 22:43] VITALS: BP 143/122
[2023-08-06 00:32] VITALS: BP 145/75
[2023-08-06 01:30] LABS: BASOPHILS ABSOLUTE AUTO 0.03 K/mm3 (0.00-0.23); BASOPHILS PERCENT AUTO 0 % (0-2); EOSINOPHILS ABSOLUTE AUTO 0.27 K/mm3 (0.00-0.68); EOSINOPHILS PERCENT AUTO 3 % (0-6); Hematocrit 36.7 % (37.0-53.0); Hemoglobin 12.2 g/dL (13.5-17.5); IMMATURE GRAN ABSOLUTE AUTO 0.03 K/mm3 (0.00-0.10); IMMATURE GRAN PERCENT AUTO 0 % (0-1); LYMPHOCYTES ABSOLUTE AUTO 0.58 K/mm3 (0.84-5.20); LYMPHOCYTES PERCENT AUTO 6 % (21-46); MONOCYTES PERCENT AUTO 12 % (4-13); Mean Corpuscular HGB 29.8 pg (26.0-34.0); Mean Corpuscular HGB Conc 33.2 g/dL (31.5-36.5); Mean Corpuscular Volume 90 fL (80-100); Mean Platelet Volume 8.8 fL (9.1-12.4); NEUTROPHILS ABSOLUTE AUTO 7.95 K/mm3 (1.96-9.15); NEUTROPHILS PERCENT AUTO 79 % (41-73); Platelet Count 362 K/mm3 (150-400); RDW Coefficient Variation 15.6 % (11.7-14.2); White Blood Cell Count 10.06 K/mm3 (4.00-11.30)
[2023-08-06 01:51] LABS: Albumin, Blood 2.9 g/dL (3.4-5.0); Albumin/Globulin Ratio 0.7 (0.8-1.8); Bilirubin, Total 0.2 mg/dL (0.1-1.0); Bun/Creatinine Ratio 21.3 (12.0-20.0); Calcium, Blood 8.3 mg/dL (8.5-10.1); Creatinine, Blood 0.75 mg/dL (0.60-1.20); Globulin, Blood 4.3 g/dL (2.2-4.0); Potassium, Blood 4.4 mmol/L (3.5-5.5); Total Protein, Blood 7.2 g/dL (6.4-8.2)
[2023-08-06 03:12] VITALS: BP 147/84
--- NOTE | 2023-08-06 03:40 | NUR ---
SHIFT SUMMERY. PT ARRIVED BY NIKOS AND WAS ABLE TO TRANSFER HIM SELF TO BED. PT ALERT AND ORIENTED. PT VERY PAINFULL TO LEGS, PT MEDICATED AND PAIN DECREASED GREATLY. PT VERY HUNGERY SO PT GIEN A SANDDWITHCH AND SOME APPLE SAUSE. A SECOND IV WAS STARTED TO LEFT HAND FOR NS, HEPARIN GOING IN RIGHT ARM. PT ABLE TO VOID USING URINAL. HEP DOSE CHANGED LATTER AFTER LAB DRAW AND GIVEN A BOLUS OF HEP . PT MEDICATED AGAIN FR PAIN . PT NOW RESTING IN BED WATCHING TV. CALL LIGHT IN REACH.
[2023-08-06 07:20] VITALS: BP 142/93
[2023-08-06 15:11] VITALS: BP 137/70
--- NOTE | 2023-08-06 18:14 | NUR ---
SHIFT SUMMARY PATIENT RESTLESS AT TIMES AND IMPULSIVE. PATIENT CLIMBED OUT OF BED TO USE THE BR AND PULLED IV'S OUT. SAFETY MEASURES PUT IN PLACE BUT PATIENT CAUGHT TURNING BED ALARM OFF TO GET UP. PATIENT EASILY REDIRECTABLE AND COOPERATIVE WITH CARE THIS SHIFT. PATIENT MEDICATED FOR WITHDRAWL SYMPTOMS. PATIENT CONTINUES TO VERBALIZE PAIN IN FOOT BUT EASILY FALLS ASLEEP. HEPARIN GTT INCREASED TO 22 UNITS. DISCOLORATION CONTINUES TO BE WITHIN MARGINS OF MARKINGS. CLARIFIED WITH PATIENT THAT HE WANTS TO HAVE INTERVENTION. PATIENT DOES NOT WANT TO HAVE FOOT AMPUTATED UNLESS ABSOLUTELY NECESSARY. PATIENT STATES IF MY FOOT IS THEN CUT IT OFF, BUT IF IT IS NOT I WANT TO KEEP IT WITH ME. STATES THAT PATIENT SMOKES METH AND IS A HEAVY REGULAR DRINKER ON A GOOD DAY. PATIENT ALSO HAS OXYGEN AT HOME BUT DOES NOT USE IT.
[2023-08-06 19:55] VITALS: BP 148/79
[2023-08-07] VITALS (7 sets, daily range): BP systolic 129–196; BP diastolic 78–108
--- NOTE | 2023-08-07 00:59 | NUR ---
CALL FROM [employer], SAYING PT HAS SOME ST ELEVATION. PT ON HEP GTT TODAY WILL BE SECOND DAY . PT SEDATED FOR S/S OF WITHDRAWL PT USES METH AND ETOH ABUSE. PT APPEARS TO BE COMFORTABLE NOT MOANING OR MOVING IF IN DISTRESS RESP REGULAR AND UNLABORED. TALKED WITH CHARGE NURES ABOUT PT, NO ACTION NEEDED AT THIS TIME PER CHARGE NURSE. CALL LIGHT IN REACH.
--- NOTE | 2023-08-07 04:30 | NUR ---
SHIFT SUMMERY, PT RESTING IN BED AT THIS TIME. PT MEDICATED FOR INCREASE AGITAION PT TRYING TO OUT OF BED AND NEARLY FALLING. PT HX OF METH USE AND ETOH. BED ALARM ON . PT HAD AN INCONT URINE DUE TO SEDATION. PT AND BEDDING CHANGED DEPENDS PLACED ON PT. PT ALSO MEDICATED FOR PAIN TO LEGS ND RIGHT FOOT. PT SLEEPING WELL UNTILL A FEW MIN AGO PT AWOKE WET AND SET OFF ALARM AND AGAIN TRYING TO GET OU TOF BED. BED ALARM RESET AND CALL LIGHT IN REACH.
[2023-08-07 05:43] LABS: BASOPHILS ABSOLUTE AUTO 0.02 K/mm3 (0.00-0.23); BASOPHILS PERCENT AUTO 0 % (0-2); EOSINOPHILS ABSOLUTE AUTO 0.33 K/mm3 (0.00-0.68); EOSINOPHILS PERCENT AUTO 5 % (0-6); Hematocrit 37.8 % (37.0-53.0); Hemoglobin 12.6 g/dL (13.5-17.5); IMMATURE GRAN ABSOLUTE AUTO 0.03 K/mm3 (0.00-0.10); IMMATURE GRAN PERCENT AUTO 1 % (0-1); LYMPHOCYTES PERCENT AUTO 6 % (21-46); MONOCYTES ABSOLUTE AUTO 0.95 K/mm3 (0.16-1.47); MONOCYTES PERCENT AUTO 14 % (4-13); Mean Corpuscular HGB 29.9 pg (26.0-34.0); Mean Corpuscular HGB Conc 33.3 g/dL (31.5-36.5); Mean Corpuscular Volume 90 fL (80-100); NEUTROPHILS ABSOLUTE AUTO 4.85 K/mm3 (1.96-9.15); NEUTROPHILS PERCENT AUTO 74 % (41-73); Platelet Count 348 K/mm3 (150-400); RDW Coefficient Variation 15.9 % (11.7-14.2); RDW Standard Deviation 51.9 fL (35.1-46.3); Red Blood Cell Count 4.22 M/mm3 (4.30-5.90); White Blood Cell Count 6.58 K/mm3 (4.00-11.30)
[2023-08-07 06:14] LABS: Albumin, Blood 2.7 g/dL (3.4-5.0); Albumin/Globulin Ratio 0.6 (0.8-1.8); Bilirubin, Total 0.2 mg/dL (0.1-1.0); Bun/Creatinine Ratio 19.3 (12.0-20.0); Calcium, Blood 8.7 mg/dL (8.5-10.1); Creatinine, Blood 0.78 mg/dL (0.60-1.20); Globulin, Blood 4.4 g/dL (2.2-4.0); Total Protein, Blood 7.1 g/dL (6.4-8.2)
[2023-08-07 12:16] LABS: SARS-Cov-2 (COVID-19) PCR, MMC NEGATIVE (NEGATIVE)
--- NOTE | 2023-08-07 17:30 | NUR ---
SHIFT SUMMARY AND TRANSFER PATIENT CONTINUES TO HAVE DISCOLORATION OF 2ND AND 3RD TOE. PATIENT CONTINUES TO HAVE PAIN IN THAT LEG. PATIENT RESTLESS AT TIMES AND IRRITABLE WHEN AWAKE. PATIENT MEDICATED WITH LIBRIUM,ATIVAN AND FENTANYL NEEDED. PATIENT DISORIENTED BUT EASILY REDIRECTABLE. PATIENT TRANSFERED TO [facility] VIA AMBULANCE FOR REVASCULARIZATION OF R FOOT. AWARE OF PLAN OF TRANSFER. BELONGINGS SENT WITH PATIENT. PATIENT DEPARTED ON HEPARIN GTT AT 22U/KG/HR.
== END 2023-08-07 17:51 | disposition short-term general hospital (02) | DRG 300 ==
LOC: ER 13:43 → MEDS 21:36
PROVIDERS: Emergency Medicine; Family Medicine; Student in an Organized Health Care Education/Training Program; ADMIT Internal Medicine
DX: I70.221 Atherosclerosis of native arteries of extremities with rest pain, right leg (principal); I70.92 Chronic total occlusion of artery of the extremities; F10.90 Alcohol use, unspecified, uncomplicated; Z20.822 Contact with and (suspected) exposure to COVID-19; G25.81 Restless legs syndrome; F17.210 Nicotine dependence, cigarettes, uncomplicated; I48.91 Unspecified atrial fibrillation; I10 Essential (primary) hypertension; Z71.6 Tobacco abuse counseling; Z85.118 Personal history of other malignant neoplasm of bronchus and lung; Z95.820 Peripheral vascular angioplasty status with implants and grafts
CPT/HCPCS: 36415; 80053; 85025; 85520; 85610; 93926; 94760; 96365; 96366; 99285-25; A9270; J1644; J2060; J3010; J7030; U0002

== ENCOUNTER 2024-11-29 09:42 | Inpatient (IN) | payer OTHER ==
[~2024-11-29] VITALS: Ht 182.9 cm; Wt 56.7 kg
[2024-11-29] VITALS (17 sets, daily range): BP systolic 108–163; BP diastolic 60–97
[~2024-11-29 09:42] MED LIST changes: +ALBU90OI INH; +ASCO500 PO; +Acetaminophen650 M1 PO; +CALCIUM CARBON650 MG PO; +CEFP200 PO; +ELIQUIS5 M2 PO; +ENSURE PLUS237 ML PO; +FAMO20 PO; +LACT PO; +MERIBIN5 MG PO; +METO25ER PO; +MIRALAX17 GM PO; +MUPIROCIN1 G1 TOP; +NARCAN4 M1; +NYSTATIN100000 U13 MT; +Norco 10-325 T1 EACH PO; +STIOLTO RESPIMAT4 G1 INH; +SULTRIDS PO; +Seroquel Xr50 MG PO; +TRAZ50 PO; +ZINC220 PO
[2024-11-29] MEDS ORDERED: Heparin Sodium 1000 Units/ML 10ML MDV ONE ×2 (10:15→11:09)
[2024-11-29] MEDS ORDERED: NS 250 ML IV ONE (10:15)
[2024-11-29] MEDS ORDERED: NS 1,000 ML IV ONE ×2 (10:15→11:09)
[2024-11-29] MEDS ORDERED: B COMPLEX VITAMIN PO (10:32)
[2024-11-29] MEDS ORDERED: BUPRENORPHIN-N1 EAC1 SL (10:33)
[2024-11-29] MEDS ORDERED: DOXY100 PO (10:34)
[2024-11-29] MEDS ORDERED: RIVIVE3 MG (10:37)
[2024-11-29] MEDS ORDERED: Prednisone10 MG PO (10:37)
[2024-11-29] MEDS ORDERED: MULTIVITAMIN PO (10:37)
[2024-11-29] MEDS ORDERED: Crestor40 MG PO (10:38)
[2024-11-29] MEDS ORDERED: STIOLTO RESPIMAT4 G1 IH (10:40)
[2024-11-29] MEDS ORDERED: Midazolam HCl 1MG / ML 2ML Vial ONE (11:08)
[2024-11-29] MEDS ORDERED: FentaNYL Citrate 50 MCG/ML 2 ML Injection ONE (11:09)
[2024-11-29] MEDS ORDERED: Alteplase 1 MG/ML 25 MG in NS 250 ML IV SCH (12:00)
[2024-11-29] MEDS ORDERED: Heparin Sodium,Porcine/0.5 NS 500 ML IV SCH (12:05)
[2024-11-29] MEDS ORDERED: Midazolam HCl 1MG / ML 2ML Vial IV PRN (12:35)
[2024-11-29] MEDS ORDERED: Ondansetron HCl 2 MG / ML 2ML Vial IV PRN (12:35)
[2024-11-29] MEDS ORDERED: Prochlorperazine Edisylate 10 mg Vial IV PRN (12:40)
[2024-11-29] MEDS ORDERED: Prochlorperazine Maleate 5 MG Tab PO PRN (12:40)
[2024-11-29] MEDS ORDERED: Melatonin 3 MG Tab PO PRN (12:40)
[2024-11-29] MEDS ORDERED: Ondansetron 4 MG TAB PO PRN (12:40)
--- NOTE | 2024-11-29 14:06 | NUR ---
ADMIT FROM BOOK BINDER PT ARRIVED TO ICU 11 VIA BED AT 1315. PT S/P PERIPHERAL PROCEDURE WITH DR MANUEL. PT IS AWAKE, ALERT, AND ORIENTED UPON ARRIVAL. PT DENIES PAIN OR DISCOMFORT. PT WITH TWO RIGHT GROIN SHEATHS IN PLACE AND LEFT GROIN SHEATH. R GROIN DISTAL AND PROXIMAL SHEATHS WITH SEPERATE TPA GTTS INFUSING AT 1 MG/HR AND LEFT GROIN SHEATH WITH HEPARIN INFUSING AT 10 ML/HR. VITAL SIGNS STABLE. PT ON 2L O2 RAN. SHANNON ADRIAN TO ASSUME CARE AT THIS TIME.
--- NOTE | 2024-11-29 14:19 | NUR ---
Pt. is awake in bed and welcomed my visit. This seat scooper machine had visited this pt. on a previous hospital visit. Facilitated a short life review. Pt. displayed evidence of some pleasant confusion at times. Listened with empathy and a calming presence. Prayed with Pt. Pt. verbalized gratitude for the spiritual care visit and welcomed this seat scooper machine to return.
[2024-11-29] MEDS ORDERED: LORazepam 2 MG/ML 1ML Injection IV PRN (16:25)
[2024-11-29] MEDS ORDERED: ChlordiazePOXIDE 25 MG Cap PO PRN (16:25)
[2024-11-29] MEDS ORDERED: TraZODone HCl 50 MG Tab PO PRN (16:30)
[2024-11-29] MEDS ORDERED: Naloxone HCL 4 MG SPRAY (1 UNIT) SCH (16:30)
[2024-11-29] MEDS ORDERED: Albuterol 2.5 MG/3 ML VIAL INH SCH (16:45)
[2024-11-29] MEDS ORDERED: Tiotropium Bromide 2.5 MCG/ACT MIST INHAL (10 ACT/4 GM) INH SCH (16:45)
[2024-11-29] MEDS ORDERED: Albuterol HFA200 ACT/6.7 GM INH INH PRN (16:45)
[2024-11-29 16:56] LABS: Hematocrit 37.5 % (37.0-53.0); Hemoglobin 12.6 g/dL (13.5-17.5); Mean Corpuscular HGB 31.8 pg (26.0-34.0); Mean Corpuscular HGB Conc 33.6 g/dL (31.5-36.5); Mean Corpuscular Volume 95 fL (80-100); Mean Platelet Volume 9.4 fL (9.1-12.4); Platelet Count 207 K/mm3 (150-400); RDW Coefficient Variation 14.2 % (11.7-14.2); RDW Standard Deviation 49.4 fL (35.1-46.3); Red Blood Cell Count 3.96 M/mm3 (4.30-5.90); White Blood Cell Count 13.92 K/mm3 (4.00-11.30)
[2024-11-29] MEDS ORDERED: Calcium Carbonate 1,250 MG TABLET PO SCH (17:00)
[2024-11-29] MEDS ORDERED: Thiamine HCl 100 MG Tab PO SCH (17:00)
[2024-11-29 17:10] LABS: International Normalized Ratio 1.02; Prothrombin Time Results 10.9 Sec (9.7-11.5)
[2024-11-29] MEDS ORDERED: Buprenorphine HCL/Naloxone HCL 8MG-2MG Tab SL SCH (18:00)
[2024-11-29] MEDS ORDERED: FLU VACC TS2024-25(6MOS UP)/PF 45 MCG/0.5 ML SYRINGE IM SCH (18:20)
--- NOTE | 2024-11-29 18:49 | NUR ---
SHIFT SUMMARY: NEURO: PATIENT ALERT AND ORIENTED X4 WITH SOME MUMBLED SPEECH. ABLE TO MAKE HIS NEEDS KNOWN, ALTHOUGH HE DOES RELY ON HIS SPOUSE, ALE, FOR INFORMATION ABOUT HIS MEDICATIONS. MOBILITY PRESENT IN ALL 4 EXTREMITIES. PATIENT FOLLOWING VASCULAR PRECAUTIONS OF LYING FLAT WITH SOME MINIMAL CUEING. PATIENT REPORTS NUMBNESS/TINGLING IN BOTH OF HIS FEET FROM LOWER RAMAN DOWN. PATIENT REPORTS THAT HE USES A CANE AT HOME. PATIENT REPORTS DAILY ALCOHOL USE OF WHISKEY AND BEER. CIWA 0 THIS AFTERNOON. PATIENT ALSO REPORTS FREQUENT METH USE. CARDIAC: VITALS STABLE WITH SBP >110 AND MAPS >65. HR IN THE 80S. VASCULAR LINES REMAINED INTACT. TPA INFUSING INTO RIGHT GROIN ACCESS SITES REDUCED TO 0.5 MG/HR 6 HOURS POST INITIATION PER DR. MANUEL ORDERS . HEPARIN GTTN AT 10 ML/HR PER ORDERS IN LEFT GROIN VASCULAR ACCESS. PLAN IS FOR PATIENT TO RETURN TO THE CERTIFIED PEST CONTROL TECHNICIAN TOMORROW TO COMPLETE PROCEDURE. PATIENT AND HIS SPOUSE ARE AWARE. RESPIRATORY: PATIENT STABLE ON ROOM AIR WITH SPO2>92%. PATIENT DENIES SHORTNESS OF BREATH. REPORTS USING 2L VIA NC AT NIGHT AT HOME. LUNG SOUNDS CLEAR AND DIMINISHED. GI/: PATIENT TOLERATING PO INTAKE WITHOUT DIFFICULTY. VOIDING WITHOUT DIFFICULTY. NO BOWEL MOVEMENT THE SHIFT. BOWEL CARE ORDERED. PSYCHSOCIAL: PATIENT CALM AND COOPERATIVE. REQUESTING TIME OF PROCEDURE IN THE MORNING WHEN KNOWN. SHE HELPS THE PATIENT MANAGE HIS MEDICAL NEEDS AT HOME.
[2024-11-29] MEDS ORDERED: NS IV SCH (19:05)
[2024-11-29] MEDS ORDERED: ALTEPLASE IV SCH (19:05)
--- NOTE | 2024-11-29 20:21 | NUR ---
PROVIDER NOTIFED PT W/ 2 RL ARTERIAL SHEATHS AND ONE L VENOUS SHEATH IN PLACE WITH TPA INFUSING TO THE R SHEATHS AND HEPARIN INFUSING TO THE L SHEATH. AT START OF SHIFT WITH DAYSHIFT RN AT BEDSIDE PERFORMED ASSESSMENT, R SHEATH AREA WAS SOFT NO SIGNIFICANT SWELLING, NO HEMATOMA PRESENT. ABOUT 30MINS LATER, REASSESSED SITE WITH SEDIMENTATIONIST, SWELLING NOTED, HEMATOMA BEGINNING TO FORM AND PT C/O PAIN AT R SHEATH INSERTION SITE. PROVIDER CALLED AND NOTIFIED AT 1950, STATED HE WILL BE AT BEDSIDE TO ASSESS IN 20MINS.
[2024-11-29] MEDS ORDERED: Sennosides 8.6 MG Tab PO SCH (21:00)
[2024-11-29] MEDS ORDERED: Doxycycline Hyclate 100 MG TAB PO SCH (21:00)
[2024-11-29] MEDS ORDERED: rOPINIRole HCl 2 MG Tab PO SCH (21:00)
[2024-11-29] MEDS ORDERED: Gabapentin 300 MG Cap PO SCH (21:00)
[2024-11-29] MEDS ORDERED: Divalproex Sodium 500 MG TABCR PO SCH (21:00)
[2024-11-29] MEDS ORDERED: QUEtiapine Fumarate 50 MG TAB PO SCH (21:00)
[2024-11-29] MEDS ORDERED: Docusate Sodium 100 MG Cap PO SCH (21:00)
--- NOTE | 2024-11-29 21:15 | NUR ---
UPDATE PROVIDER AT BEDSIDE, AREA MARKED WITH SKIN MARKER, TPA DOSE ADJUSTED PER PROVIDER ORDERS, WILL CALL PROVIDER WITH ANY CHANGES.
--- NOTE | 2024-11-29 23:14 | NUR ---
UPDATE REASSESSED PT R GROIN SHEATH SITES, HEMATOMA CONTINUES TO INCREASE IN SIZE. PT C/O PAIN AND DISCOMFORT AT R GROIN SITE. PROVIDER NOTIFIED, ORDERS GIVEN TO SWITCH HEPARIN FROM L SHEATH TO PIV, TURN OFF TPA IN LOWER R SHEATH, AND CONTINUE TPA IN UPPER R SHEATH. CONFIRMED THAT PROVIDER DID NOT WANT ANY TYPE OF FLUIDS TO INFUSE TO R LOWER AND L SHEATHS. SHEATHS WERE CLEANED, CAPPED AND TAPED DOWN WITH TEGADERM.
[2024-11-30] VITALS (29 sets, daily range): BP systolic 100–162; BP diastolic 63–98
--- NOTE | 2024-11-30 06:02 | NUR ---
SHIFT SUMMARY PT A/OX4, RESPONDS APPROPRIATLY. ON BILLBOARD MECHANIC, HR 80-100'S, MAPS > 65. PULSES ABSENT IN BLE, 2 SHEATHS PLACED TO R GROIN AND 1 SHEATH PLACED TO L GROIN. TPA INFUSING AT 0.25 MG/H IN R UPPER SHEATH. HEPARIN INFUSING TO PIV. L SHEATH AND R LOWER SHEATH ARE CAPPED. LARGE HEMATOMA IN R GROIN AREA SURROUNDING SHEATH SITE, PT C/O PAIN AND DISCOMFORT WHEN PALPATED. PROVIDER AWARE, SEE PREVIOUS NOTES. PT NEEDS REINFORCEMENT TO NOT BEND LEGS. PLAN FOR MEDICAL INFORMATION OFFICER THIS AM. ON ROOM AIR WHILE AWAKE, 2L NC WHILE ASLEEP, SATS >90%. VOIDING IN URINAL WITH MINIMAL ASSISTANCE. NATTY BM THIS SHIFT, HX CONSTIPATION, BOWEL REGIMEN INITIATED. NPO SINCE MIDNIGHT.
[2024-11-30 06:30] LABS: Hematocrit 37.3 % (37.0-53.0); Hemoglobin 12.5 g/dL (13.5-17.5); Mean Corpuscular HGB 32.1 pg (26.0-34.0); Mean Corpuscular HGB Conc 33.5 g/dL (31.5-36.5); Mean Corpuscular Volume 96 fL (80-100); Mean Platelet Volume 9.5 fL (9.1-12.4); Platelet Count 196 K/mm3 (150-400); RDW Coefficient Variation 14.3 % (11.7-14.2); RDW Standard Deviation 50.4 fL (35.1-46.3); Red Blood Cell Count 3.89 M/mm3 (4.30-5.90); White Blood Cell Count 12.03 K/mm3 (4.00-11.30)
--- NOTE | 2024-11-30 06:33 | NUR ---
HEMATOMA IN RIGHT GROIN GREW OVER THE LAST HOUR OR SO, NEW AREA MARKED, PATIENT COMPLAINS OF PAIN WITH PALPATION TO THE FRONT AND SIDE BUT DENIES PAIN IN HIS BACK. DR. Osorio NOTIFIED, ALL TPA STOPPED, HEPARIN REMAINS INFUSING IN PERIPHERAL IV.
[2024-11-30 06:45] LABS: International Normalized Ratio 1.02; Prothrombin Time Results 10.9 Sec (9.7-11.5)
[2024-11-30 06:47] LABS: Bun/Creatinine Ratio 32.6 (12.0-20.0); Calcium, Blood 9.1 mg/dL (8.5-10.1); Creatinine, Blood 0.8 mg/dL (0.60-1.20)
[2024-11-30] MEDS ORDERED: Nicotine 7 MG PATCH TOP SCH (09:00)
[2024-11-30] MEDS ORDERED: Folic Acid 1 MG TAB PO SCH (09:00)
[2024-11-30] MEDS ORDERED: Rosuvastatin Calcium 10 MG Tab PO SCH (09:00)
[2024-11-30] MEDS ORDERED: Lidocaine 4% 1 Patch TOP SCH (09:00)
[2024-11-30] MEDS ORDERED: Metoprolol Succinate 25 MG TABCR PO SCH (09:00)
[2024-11-30] MEDS ORDERED: PredniSONE 10 MG Tab PO SCH (09:00)
[2024-11-30] MEDS ORDERED: Multivitamins 1 Tab PO SCH (09:00)
--- NOTE | 2024-11-30 10:16 | NUR ---
ON ASSESSMENT, PATIENT HAS 3 SHEATHS PRESENT. 2 ON THE RIGHT SIDE; HEMATOMA IS PRESENT AND EXPANDING A LITTLE PAST THE LAST ELAD[place] LOCATION AT 0630. PREVIOUS NURSE REPORTED THAT DR. HILL IS AWARE OF SITE. TPA IS OFF AND HEPARIN GTT RUNNING PERPHERIALLY ONLY. LEFT SIDED SHEATH IS WDL.
[2024-11-30] MEDS ORDERED: Heparin Sodium 1000 Units/ML 10ML MDV ONE ×2 (10:30→11:17)
[2024-11-30] MEDS ORDERED: NS 1,000 ML IV ONE ×2 (10:30→10:39)
[2024-11-30] MEDS ORDERED: FentaNYL Citrate 50 MCG/ML 2 ML Injection ONE ×2 (10:38→12:08)
[2024-11-30] MEDS ORDERED: Midazolam HCl 1MG / ML 2ML Vial ONE (10:38)
[2024-11-30] MEDS ORDERED: Alteplase Recombinant 2 MG / Vial ONE (11:43)
[2024-11-30] MEDS ORDERED: Phenylephrine HCl 100 MCG/ML-NS 10MLSYR (1MG/10ML) ONE (11:51)
--- NOTE | 2024-11-30 13:05 | NUR ---
IRIS FILED FOR FALL INCIDENT AT 1305, NO PATIENT HARM.
--- NOTE | 2024-11-30 15:35 | NUR ---
PT RECIEVED FROM FIELD SUPPORT TECHNICIAN WITH THE 3 PREVIOUS SHEATHS REMOVED. HEMATOMA STILL SEEN ON THE RIGHT SIDE FROM PREVIOUS. SLIGHTLY LARGER THAN THE PREVIOUS LINE MARKED AT 0630. DOPPLER PULSES ON ELBERT LOWER EXTREMITIES ABSENT BUT BOTH FEET WARM TO THE TOUCH. NO NEW CHANGES. HEPARIN GTT PER PHARMACY.
[2024-11-30] MEDS ORDERED: Dose Adjust by Pharmacy XX STA (16:26)
[2024-11-30] MEDS ORDERED: Heparin Sodium,Porcine/0.5 NS 500 ML IV SCH (16:30)
[2024-11-30 16:43] LABS: Anti-Xa UFH, PHA Monitoring 0.11 IU/mL; International Normalized Ratio 1.01; Prothrombin Time Results 10.8 Sec (9.7-11.5)
--- NOTE | 2024-11-30 21:00 | NUR ---
TRANSPORT ARRIVED AT BEDSIDE. PT TO BE MOVED TO TRANSPORT BED AND SENT WITH AMBULANCE CREW TO [facility]. PT IS AWARE AND AGREES TO TRANSPORT. PTS WAS CALLED WITH INFORMATION ON TRANSPORT AND WHERE PT WOULD BE GOING. REPORT GIVEN TO ICU NURSE JEFF IN [place]. PT LOADED ONTO TRANSPORT BED AND LEAVES ICU WITH TRANSPORT TEAM WITHOUT INCIDENT.
--- NOTE | 2024-11-30 21:00 | NUR ---
BELONGINGS SENT WITH PT. SHEATH CARDS PLACED WITH BELONGINGS IN BAG AND SENT WITH PATIENT.
== END 2024-11-30 21:04 | disposition short-term general hospital (02) | DRG 271 ==
LOC: MHTC 09:42 → ICUE 13:54
PROVIDERS: Radiology Diagnostic Radiology; ADMIT Internal Medicine
PROC: 3E05317 Introduction of Other Thrombolytic into Peripheral Artery, Percutaneous Approach (ICD-10-PCS; 2024-11-29)
PROC: B4101ZZ Fluoroscopy of Abdominal Aorta using Low Osmolar Contrast (ICD-10-PCS; 2024-11-29)
PROC: B41F1ZZ Fluoroscopy of Right Lower Extremity Arteries using Low Osmolar Contrast (ICD-10-PCS; 2024-11-29)
PROC: 04CK3ZZ Extirpation of Matter from Right Femoral Artery, Percutaneous Approach (ICD-10-PCS; principal; 2024-11-30)
PROC: 047K3ZZ Dilation of Right Femoral Artery, Percutaneous Approach (ICD-10-PCS; 2024-11-30)
PROC: 047C3ZZ Dilation of Right Common Iliac Artery, Percutaneous Approach (ICD-10-PCS; 2024-11-30)
PROC: 047H3DZ Dilation of Right External Iliac Artery with Intraluminal Device, Percutaneous Approach (ICD-10-PCS; 2024-11-30)
PROC: 3E05317 Introduction of Other Thrombolytic into Peripheral Artery, Percutaneous Approach (ICD-10-PCS; 2024-11-30)
DX: T82.868A Thrombosis due to vascular prosthetic devices, implants and grafts, initial encounter (principal); E44.0 Moderate protein-calorie malnutrition; I50.42 Chronic combined systolic (congestive) and diastolic (congestive) heart failure; I74.3 Embolism and thrombosis of arteries of the lower extremities; F15.20 Other stimulant dependence, uncomplicated; L76.32 Postprocedural hematoma of skin and subcutaneous tissue following other procedure; Z68.1 Body mass index [BMI] 19.9 or less, adult; I70.235 Atherosclerosis of native arteries of right leg with ulceration of other part of foot; Z66 Do not resuscitate; I11.0 Hypertensive heart disease with heart failure; L97.511 Non-pressure chronic ulcer of other part of right foot limited to breakdown of skin; E78.5 Hyperlipidemia, unspecified; J44.9 Chronic obstructive pulmonary disease, unspecified; D63.8 Anemia in other chronic diseases classified elsewhere; G89.4 Chronic pain syndrome; F41.9 Anxiety disorder, unspecified; F32.A Depression, unspecified; G31.84 Mild cognitive impairment of uncertain or unknown etiology; F10.20 Alcohol dependence, uncomplicated; H90.6 Mixed conductive and sensorineural hearing loss, bilateral; F17.210 Nicotine dependence, cigarettes, uncomplicated; G25.81 Restless legs syndrome; I48.0 Paroxysmal atrial fibrillation; Y71.2 Prosthetic and other implants, materials and accessory cardiovascular devices associated with adverse incidents; Z92.21 Personal history of antineoplastic chemotherapy; Z85.118 Personal history of other malignant neoplasm of bronchus and lung; Z95.820 Peripheral vascular angioplasty status with implants and grafts; Z79.01 Long term (current) use of anticoagulants; Z79.52 Long term (current) use of systemic steroids; Z92.3 Personal history of irradiation
CPT/HCPCS: 36245; 36415; 37184; 37211; 37213; 37221; 37222; 37224; 75625; 75710; 75716; 76937; 80048; 85027; 85384; 85520; 85610; 85730; 94640; 94664; 94762; 99152; 99153; A9270; C1725; C1751; C1760; C1769; C1876; C1887; C1894; J1644; J2250; J2371; J2997; J3010; J7030; J7050; J7512; Q9967

== ENCOUNTER 2024-12-31 01:37 | Day surgery (SDC) | payer OTHER ==
[~2024-12-31 01:37] MED LIST changes: +B COMPLEX VITAMIN PO; +BUPRENORPHIN-N1 EAC1 SL; +Crestor40 MG PO; +DOXY100 PO; +MULTIVITAMIN PO; +Prednisone10 MG PO; +RIVIVE3 MG; +STIOLTO RESPIMAT4 G1 IH
[2024-12-31] MEDS ORDERED: Lidocaine HCl 4% Cream 5 GM ONE (14:18)
== END 2024-12-31 23:00 | disposition home or self-care (01) ==
LOC: WOUND 01:37
DX: L97.512 Non-pressure chronic ulcer of other part of right foot with fat layer exposed (principal); I73.9 Peripheral vascular disease, unspecified; I10 Essential (primary) hypertension; J44.9 Chronic obstructive pulmonary disease, unspecified; I25.10 Atherosclerotic heart disease of native coronary artery without angina pectoris; I11.0 Hypertensive heart disease with heart failure; I50.9 Heart failure, unspecified; I48.91 Unspecified atrial fibrillation; H91.93 Unspecified hearing loss, bilateral; F17.200 Nicotine dependence, unspecified, uncomplicated
CPT/HCPCS: A9270; G0463

== ENCOUNTER 2025-01-07 02:32 | Day surgery (SDC) | payer OTHER ==
[2025-01-07] MEDS ORDERED: Lidocaine HCl 4% Cream 5 GM ONE (13:07)
== END 2025-01-07 23:00 | disposition home or self-care (01) ==
LOC: WOUND 02:32
DX: L89.894 Pressure ulcer of other site, stage 4 (principal); L73.9 Follicular disorder, unspecified; I10 Essential (primary) hypertension; Z72.0 Tobacco use
CPT/HCPCS: A9270; G0463

== ENCOUNTER 2025-01-18 03:34 | Day surgery (SDC) | payer OTHER ==
[2025-01-18] MEDS ORDERED: Lidocaine HCl 4% Cream 5 GM ONE (14:59)
== END 2025-01-18 23:00 | disposition home or self-care (01) ==
LOC: WOUND 03:34
DX: L89.894 Pressure ulcer of other site, stage 4 (principal); I73.9 Peripheral vascular disease, unspecified; L97.519 Non-pressure chronic ulcer of other part of right foot with unspecified severity; I10 Essential (primary) hypertension; Z72.0 Tobacco use
CPT/HCPCS: A9270

== ENCOUNTER 2025-01-21 02:38 | Day surgery (SDC) | payer OTHER ==
[2025-01-21] MEDS ORDERED: Lidocaine HCl 4% Cream 5 GM ONE (13:33)
== END 2025-01-21 22:48 | disposition home or self-care (01) ==
LOC: WOUND 02:38
DX: L89.894 Pressure ulcer of other site, stage 4 (principal); I73.9 Peripheral vascular disease, unspecified; I10 Essential (primary) hypertension; Z72.0 Tobacco use
CPT/HCPCS: A9270

== ENCOUNTER 2025-01-25 07:07 | Day surgery (SDC) | payer OTHER ==
[~2025-01-25] VITALS: Ht 182.9 cm; Wt 54.7 kg
[2025-01-25] VITALS (7 sets, daily range): BP systolic 116–144; BP diastolic 52–73
[~2025-01-25 07:07] MED LIST changes: +ACET500 PO; +B COMPLEX VITAMIN; +Cymbalta20 MG PO; +Heparin Sodium 1000 Units/ML 10ML MDV ONE; +LIDOCAINE 4% CREAM; +NS 1,000 ML IV ONE; +NS 500 ML IV ONE
[2025-01-25 07:54] LABS: U Amphetamine Screen DETECTED; U Barbituate Screen Not Detected; U Benzodiazapine Screen Not Detected; U Buprenorphine Screen DETECTED; U Cannabinoids Screen Not Detected; U Cocaine Screen Not Detected; U Methadone Screen Not Detected; U Methamphetamine Screen DETECTED; U Opiates Screen Not Detected; U Oxycodone Screen Not Detected; U Phencyclidine Screen Not Detected
[2025-01-25] MEDS ORDERED: ZINC220 PO (08:03)
[2025-01-25] MEDS ORDERED: Lactated Ringer's 1,000 ML IV ONE (08:12)
[2025-01-25] MEDS ORDERED: Verapamil HCL 2.5 MG/ML 2ML Injection ONE (08:17)
[2025-01-25] MEDS ORDERED: Nitroglycerin 2 MG/20 ML BTL ONE (08:17)
[2025-01-25] MEDS ORDERED: Heparin Sodium 1000 Units/ML 10ML MDV ONE (08:19)
[2025-01-25] MEDS ORDERED: Ondansetron HCl 2 MG / ML 2ML Vial ONE (08:25)
[2025-01-25] MEDS ORDERED: Phenylephrine HCl 100 MCG/ML-NS 10MLSYR (1MG/10ML) ONE (08:39)
[2025-01-25] MEDS ORDERED: Sugammadex Sodium 200 MG/2ML SDV (100 MG/ML) IV ONE (09:05)
--- NOTE | 2025-01-25 09:40 | NUR ---
pt returned to recovery room post procedure with anashesia in attendance.
--- NOTE | 2025-01-25 11:04 | NUR ---
dR Cancino IN TO ASSESS DOPPLER PUSE TO LEFT FOOT, HE ALSO SPOKE TO TO DISCUSS PROCEDURE RESULTS AND PLAN.
--- NOTE | 2025-01-25 11:35 | NUR ---
discharge instructione given to and patient. verbalized understanding, questions answered. IV site dced by Shagufta. dresing to left foot D&I. no hematoma, no bleeding. Pt up to restroom with assist from alice garrison. had c/o right eye feeling scrtchy prior , but now states that he doesn't notice it.
--- NOTE | 2025-01-25 11:40 | NUR ---
PATIENT TRANSFERRED TO WAITING CAR. DRIVING.
[2025-01-25] MEDS ORDERED: Phenylephrine HCl 100 MCG/ML-NS 10MLSYR (1MG/10ML) IV ONE (12:51)
[2025-01-25] MEDS ORDERED: Propofol 10mg/ml 20 ml Vial (Procedural) IV ONE (12:51)
[2025-01-25] MEDS ORDERED: Rocuronium Bromide 10 MG/ML 5ML Injection IV ONE (12:51)
== END 2025-01-25 15:09 | disposition home or self-care (01) ==
LOC: MHTC 07:07
PROVIDERS: Anesthesiology
DX: I70.222 Atherosclerosis of native arteries of extremities with rest pain, left leg (principal); I11.0 Hypertensive heart disease with heart failure; I50.20 Unspecified systolic (congestive) heart failure; E78.5 Hyperlipidemia, unspecified; F17.220 Nicotine dependence, chewing tobacco, uncomplicated; Z79.01 Long term (current) use of anticoagulants; Z79.899 Other long term (current) drug therapy
CPT/HCPCS: 37224; 37228; 75710; 76937; C1725; C1769; C1887; C1894; J1644; J2371; J2405; J2704; J7030; J7050; J7120; Q9967

== ENCOUNTER 2025-01-28 01:00 | Day surgery (SDC) | payer OTHER ==
[~2025-01-28 01:00] MED LIST changes: -Heparin Sodium 1000 Units/ML 10ML MDV ONE; -NS 1,000 ML IV ONE; -NS 500 ML IV ONE
[2025-01-28] MEDS ORDERED: Lidocaine HCl 4% Cream 5 GM ONE (13:24)
== END 2025-01-28 23:34 | disposition home or self-care (01) ==
LOC: WOUND 01:00
DX: L89.894 Pressure ulcer of other site, stage 4 (principal); I73.9 Peripheral vascular disease, unspecified; I10 Essential (primary) hypertension; Z72.0 Tobacco use
CPT/HCPCS: A9270

== ENCOUNTER 2025-02-04 01:23 | Day surgery (SDC) | payer OTHER | END 2025-02-04 23:00 | disposition home or self-care (01) | LOC: WOUND 01:23 | DX: L89.894 Pressure ulcer of other site, stage 4 (principal); I73.9 Peripheral vascular disease, unspecified; I10 Essential (primary) hypertension; Z72.0 Tobacco use | CPT/HCPCS: G0463 ==

== ENCOUNTER 2025-02-06 13:01 | Inpatient (IN) | payer OTHER ==
[~2025-02-06] VITALS: Ht 182.9 cm; Wt 52.5 kg
[2025-02-06 15:51] LABS: BASOPHILS ABSOLUTE AUTO 0.03 K/mm3 (0.00-0.23); BASOPHILS PERCENT AUTO 0 % (0-2); EOSINOPHILS ABSOLUTE AUTO 0.45 K/mm3 (0.00-0.68); EOSINOPHILS PERCENT AUTO 3 % (0-6); Hematocrit 36.8 % (37.0-53.0); Hemoglobin 11.8 g/dL (13.5-17.5); IMMATURE GRAN ABSOLUTE AUTO 0.07 K/mm3 (0.00-0.10); IMMATURE GRAN PERCENT AUTO 1 % (0-1); LYMPHOCYTES ABSOLUTE AUTO 0.72 K/mm3 (0.84-5.20); LYMPHOCYTES PERCENT AUTO 5 % (21-46); MONOCYTES ABSOLUTE AUTO 1.15 K/mm3 (0.16-1.47); MONOCYTES PERCENT AUTO 7 % (4-13); Mean Corpuscular HGB 29.1 pg (26.0-34.0); Mean Corpuscular HGB Conc 32.1 g/dL (31.5-36.5); Mean Corpuscular Volume 91 fL (80-100); Mean Platelet Volume 9.2 fL (9.1-12.4); NEUTROPHILS ABSOLUTE AUTO 13.09 K/mm3 (1.96-9.15); NEUTROPHILS PERCENT AUTO 84 % (41-73); Platelet Count 383 K/mm3 (150-400); RDW Coefficient Variation 13.7 % (11.7-14.2); RDW Standard Deviation 45.5 fL (35.1-46.3); Red Blood Cell Count 4.05 M/mm3 (4.30-5.90); White Blood Cell Count 15.51 K/mm3 (4.00-11.30)
[2025-02-06 16:14] LABS: Albumin, Blood 3.1 g/dL (3.4-5.0); Albumin/Globulin Ratio 0.7 (0.8-1.8); Bilirubin, Total 0.2 mg/dL (0.1-1.0); Bun/Creatinine Ratio 45.3 (12.0-20.0); Calcium, Blood 9.8 mg/dL (8.5-10.1); Creatinine, Blood 0.6 mg/dL (0.60-1.20); Globulin, Blood 4.3 g/dL (2.2-4.0); Potassium, Blood 4.2 mmol/L (3.5-5.5); Total Protein, Blood 7.4 g/dL (6.4-8.2)
[2025-02-06] MEDS ORDERED: HYDROmorphone HCl/Pf 1MG SYR IV ONE ×2 (18:05→23:55)
[2025-02-06 19:01] LABS: International Normalized Ratio 1.04; Prothrombin Time Results 11.1 Sec (9.7-11.5)
[2025-02-06] MEDS ORDERED: HYDROmorphone HCl/Pf 1MG SYR IV PRN (19:55)
[2025-02-06 21:28] LABS: CORONAVIRUS COVID-19 AG Negative (NEGATIVE); INFLUENZA A AG Negative (NEGATIVE); INFLUENZA B AG Negative (NEGATIVE)
[2025-02-06] MEDS ORDERED: Dose Adjust by Pharmacy XX STA (21:42)
[2025-02-06] MEDS ORDERED: Heparin Sodium,Porcine/0.5 NS 500 ML IV SCH (21:45)
[2025-02-06] MEDS ORDERED: Heparin Sodium 5000 Units/ML 1ML MDV IV ONE (21:45)
[2025-02-06] MEDS ORDERED: HYDROmorphone HCl/Pf 1MG SYR ONE (23:53)
[2025-02-07] MEDS ORDERED: HYDROmorphone HCl/Pf 1MG SYR IV PRN ×2 (00:55→07:30)
[2025-02-07] MEDS ORDERED: Lactated Ringer's 1,000 ML IV SCH (01:00)
[2025-02-07] MEDS ORDERED: OxyCODONE HCL 5 MG TAB PO PRN ×2 (01:00→14:00)
[2025-02-07] MEDS ORDERED: Naloxone HCl 0.4MG / ML 1ML Vial IV PRN (01:00)
[2025-02-07] MEDS ORDERED: Acetaminophen 325 MG TABLET PO PRN (01:00)
[2025-02-07] MEDS ORDERED: Ondansetron HCl 2 MG / ML 2ML Vial IV PRN (01:00)
[2025-02-07 05:02] LABS: BASOPHILS ABSOLUTE AUTO 0.04 K/mm3 (0.00-0.23); BASOPHILS PERCENT AUTO 0 % (0-2); EOSINOPHILS ABSOLUTE AUTO 0.31 K/mm3 (0.00-0.68); EOSINOPHILS PERCENT AUTO 2 % (0-6); Hematocrit 40.3 % (37.0-53.0); Hemoglobin 12.8 g/dL (13.5-17.5); IMMATURE GRAN ABSOLUTE AUTO 0.08 K/mm3 (0.00-0.10); IMMATURE GRAN PERCENT AUTO 1 % (0-1); LYMPHOCYTES ABSOLUTE AUTO 0.69 K/mm3 (0.84-5.20); LYMPHOCYTES PERCENT AUTO 5 % (21-46); MONOCYTES ABSOLUTE AUTO 1.06 K/mm3 (0.16-1.47); MONOCYTES PERCENT AUTO 7 % (4-13); Mean Corpuscular HGB 28.8 pg (26.0-34.0); Mean Corpuscular HGB Conc 31.8 g/dL (31.5-36.5); Mean Corpuscular Volume 91 fL (80-100); Mean Platelet Volume 9.4 fL (9.1-12.4); NEUTROPHILS ABSOLUTE AUTO 12.67 K/mm3 (1.96-9.15); NEUTROPHILS PERCENT AUTO 85 % (41-73); Platelet Count 347 K/mm3 (150-400); RDW Coefficient Variation 13.6 % (11.7-14.2); RDW Standard Deviation 44.9 fL (35.1-46.3); Red Blood Cell Count 4.45 M/mm3 (4.30-5.90); White Blood Cell Count 14.85 K/mm3 (4.00-11.30)
[2025-02-07 05:34] LABS: Albumin/Globulin Ratio 0.7 (0.8-1.8); Bilirubin, Total 0.4 mg/dL (0.1-1.0); Bun/Creatinine Ratio 44.7 (12.0-20.0); Calcium, Blood 9.1 mg/dL (8.5-10.1); Creatinine, Blood 0.47 mg/dL (0.60-1.20); Globulin, Blood 4.6 g/dL (2.2-4.0); Total Protein, Blood 7.6 g/dL (6.4-8.2)
[2025-02-07] MEDS ORDERED: Dose Adjust by Pharmacy XX STA ×2 (05:53→13:17)
[2025-02-07] MEDS ORDERED: Heparin Sodium 5000 Units/ML 1ML MDV IV ONE ×2 (05:55→13:20)
--- NOTE | 2025-02-07 06:14 | NUR ---
NURSING NOTE: THIS PT CAME TO THE ICU FROM THE ER MEDICAL FLOOR OVERFLOW AT AROUND 0400. HE HAS BEEN IN SEVERE PAIN IN HIS LOWER LEFT LEG BUT SEEMS TO BE DECENTLY CONTROLLED WITH MEDS ON EMAR. ALL VITAL SIGNS HAVE BEEN WNL AND IS AWAITING A TRANSFER OUT OF THE ICU. HE HAS BEEN RESTING SINCE GETTING HERE.
[2025-02-07 07:00] VITALS: BP 147/84
[2025-02-07] MEDS ORDERED: OxyCODONE HCL 5 MG TAB PO ONE (10:35)
[2025-02-07] MEDS ORDERED: HYDROmorphone HCl/Pf 1MG SYR IV ONE (10:35)
--- NOTE | 2025-02-07 10:35 | NUR ---
IN ROOM Md Lambert in the room dicussing plan of care with patient to be transfered to [facility] once a bed is available. changed pain medication for better pain control. see orders. plan to call and get update on bed and if no bed available soon to put in a diet order.
[2025-02-07 10:52] VITALS: BP 154/96
--- NOTE | 2025-02-07 11:50 | NUR ---
am note this rn assumed care at 0700. vital signs stable. patient is alert and oriented x4.neuro is intact. perrla. patient reports pain in left lower leg rated at 9. pain meds per emar. patient denies chest pain/pressure or shortness of breath. see shift assessment for further detials.
--- NOTE | 2025-02-07 13:54 | NUR ---
update this rn spoke with patient , terry, and updated on patient condition and possibly moving later this afternoon/tonight. when patient transfers call patient to update on patient leaving the hospital. per patient patient last drink was tuesday and drinks fireball about half a pint, but hasnt drank as much the last two weeks. this rn updated md castaneda.
[2025-02-07] MEDS ORDERED: LORazepam 2 MG/ML 1ML Injection IV PRN (14:15)
--- NOTE | 2025-02-07 15:56 | NUR ---
update this rn gave report to emil at [facility]. patient is 11k room 5. patient informed and this rn called to inform her as well. awaiting for transport and plan to call back to [facility] when patient leaves to give eta on their arrival.
[2025-02-07 16:04] VITALS: BP 154/96
[2025-02-07 16:32] VITALS: BP 145/85
--- NOTE | 2025-02-07 16:43 | NUR ---
patient left patient left with transport up to [facility] with all belongings and in no distress. patient has heparin infusing and left with pump and one channel. no acute changes. plan remains up to date
== END 2025-02-07 16:44 | disposition short-term general hospital (02) | DRG 300 ==
LOC: ER 13:01 → ERHOLD 13:02 → ICUE 13:02
PROVIDERS: Student in an Organized Health Care Education/Training Program; ADMIT Student in an Organized Health Care Education/Training Program
DX: I70.222 Atherosclerosis of native arteries of extremities with rest pain, left leg (principal); F10.139 Alcohol abuse with withdrawal, unspecified; I50.22 Chronic systolic (congestive) heart failure; I70.92 Chronic total occlusion of artery of the extremities; I74.09 Other arterial embolism and thrombosis of abdominal aorta; J44.9 Chronic obstructive pulmonary disease, unspecified; I48.0 Paroxysmal atrial fibrillation; I11.0 Hypertensive heart disease with heart failure; F15.91 Other stimulant use, unspecified, in remission; Z79.01 Long term (current) use of anticoagulants; Z79.52 Long term (current) use of systemic steroids; Z87.891 Personal history of nicotine dependence; Z95.820 Peripheral vascular angioplasty status with implants and grafts; Z89.411 Acquired absence of right great toe; Z89.421 Acquired absence of other right toe(s); Z85.118 Personal history of other malignant neoplasm of bronchus and lung
CPT/HCPCS: 36415; 75635; 80053; 82550; 82947; 83735; 85025; 85520; 85610; 85730; 87428-QW; 93926; 96374-59; 96375-59; 96376; 96376-59; 99284-25; A9270; G0378; J1171; J1644; J7120; Q9967

== ENCOUNTER 2025-03-06 17:21 | Emergency (ER) | payer OTHER ==
[~2025-03-06] VITALS: Ht 182.9 cm; Wt 54.4 kg
[2025-03-06 17:24] VITALS: BP 125/63
[2025-03-06] MEDS ORDERED: Silver Sulfadiazine 1% Cream 25 APPLIC/25 GM Tube TOP ONE (18:15)
[2025-03-06] MEDS ORDERED: Silvadene20 GM TOP (18:20)
== END 2025-03-06 19:15 | disposition home or self-care (01) ==
LOC: ER 17:21
DX: T24.202A Burn of second degree of unspecified site of left lower limb, except ankle and foot, initial encounter (principal); X02.0XXA Exposure to flames in controlled fire in building or structure, initial encounter; Z79.899 Other long term (current) drug therapy; Z79.01 Long term (current) use of anticoagulants; Z79.52 Long term (current) use of systemic steroids
CPT/HCPCS: 16000; 99283-25; A9270

== ENCOUNTER → 2025-08-22 | Outpatient (CLI) | payer OTHER ==
[~2025-08-22] MED LIST changes: +Silvadene20 GM TOP
[2025-08-22 14:32] LABS: BASOPHILS ABSOLUTE AUTO 0.02 K/mm3 (0.00-0.23); BASOPHILS PERCENT AUTO 0 % (0-2); EOSINOPHILS ABSOLUTE AUTO 0.17 K/mm3 (0.00-0.68); EOSINOPHILS PERCENT AUTO 1 % (0-6); Hematocrit 35.4 % (37.0-53.0); Hemoglobin 11.0 g/dL (13.5-17.5); IMMATURE GRAN ABSOLUTE AUTO 0.04 K/mm3 (0.00-0.10); IMMATURE GRAN PERCENT AUTO 0 % (0-1); LYMPHOCYTES ABSOLUTE AUTO 0.36 K/mm3 (0.84-5.20); LYMPHOCYTES PERCENT AUTO 3 % (21-46); MONOCYTES ABSOLUTE AUTO 1.14 K/mm3 (0.16-1.47); MONOCYTES PERCENT AUTO 9 % (4-13); Mean Corpuscular HGB Conc 31.1 g/dL (31.5-36.5); Mean Corpuscular Volume 89 fL (80-100); NEUTROPHILS ABSOLUTE AUTO 11.41 K/mm3 (1.96-9.15); NEUTROPHILS PERCENT AUTO 87 % (41-73); NRBC ABSOLUTE 0.00 K/mm3 (0.00-0.02); NRBC Auto 0.0 /100 WBC (0.0-0.2); Platelet Count 265 K/mm3 (150-400); RDW Coefficient Variation 15.8 % (11.7-14.2); RDW Standard Deviation 51.4 fL (35.1-46.3)
[2025-08-22 15:23] LABS: Alanine Aminotransfer (ALT/SGP 37.0 U/L (12-78); Albumin, Blood 3.1 g/dL (3.4-5.0); Albumin/Globulin Ratio 0.8 (0.8-1.8); Anion Gap 7.0 mmol/L (3-11); Aspartate Aminotrans (AST/SGOT 26.0 U/L (12-37); Bilirubin, Total 0.5 mg/dL (0.1-1.0); Blood Urea Nitrogen 35.0 mg/dL (8-24); CO2, Blood 33.0 mmol/L (21-32); Calcium, Blood 9.3 mg/dL (8.5-10.1); Chloride, Blood 101.0 mmol/L (98-108); Creatinine, Blood 0.54 mg/dL (0.60-1.20); Globulin, Blood 3.8 g/dL (2.2-4.0); Glucose, Blood 180.0 mg/dL (70-99); Potassium, Blood 3.6 mmol/L (3.5-5.5); Sodium, Blood 137.0 mmol/L (136-145); Total Protein, Blood 6.9 g/dL (6.4-8.2)
== END ==
LOC: LAB 13:20 → LAB SHORT 13:20
PROVIDERS: Internal Medicine Hematology & Oncology
DX: C34.12 Malignant neoplasm of upper lobe, left bronchus or lung (principal)
CPT/HCPCS: 80053; 85025